=== PATIENT | female | born 2000 | race Caucasian/White ===

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

== ENCOUNTER 2022-07-12 01:41 | Observation (INO) | payer OTHER, SELFPAY ==
[2022-07-12 02:00] VITALS: BMI 26.7
--- NOTE | 2022-07-12 02:10 | OBADM ---
This patient, Bekah Robbins, admitted to the OB room OB Post 115 for observation. Patient/family oriented to hospital policies and general routines including ID bracelet, bed and alarms, visiting hours, pain management, procedures, bathroom and other care routines, personal items, smoking policy, room service/diet, and visiting hours. Patient/Family are encouraged to report perceived risks to care and to ask questions if they do not understand what they are told or what they should do.
[2022-07-12 02:14] VITALS: BP 109/63; PULSE 90
[2022-07-12 02:15] VITALS: BP 107/67; PULSE 90
[2022-07-12 02:20] VITALS: BP 109/63; PULSE 90
--- NOTE | 2022-07-25 07:55 | PM.OBTRLD ---
OB - Triage/Final Diagnosis Visit Information Comments/Additional reasons for admission: I have assessed the risk for this patient, Bekah Robbins, and determined that she would benefit from observation care. Final Diagnosis (1) Decreased movement: Code(s): O36.8190 - Decreased movements, unspecified trimester, not applicable or unspecified Status: Acute
== END 2022-07-12 02:25 | disposition home or self-care (01) ==
PROVIDERS: Admitting Provider Obstetrics & Gynecology; Visit Provider Obstetrics & Gynecology
DX: O36.8130 Decreased fetal movements, third trimester, not applicable or unspecified (principal); Z3A.34 34 weeks gestation of pregnancy
CPT/HCPCS: 59025; G0378; G0379

== ENCOUNTER 2022-07-19 02:18 | Observation (INO) | payer OTHER, SELFPAY ==
--- NOTE | 2022-07-19 02:30 | PC.NURSE ---
PT arrived to unit with c/o back pain, pressure, and leaking. When asked what she rates her pain on a scale of 1-10, PT states 12, definitely 12 PT denies any form of bleeding.
[2022-07-19 02:42] VITALS: BP 103/65; PULSE 93; RESP 20; TEMP 36.4
[2022-07-19 02:43] VITALS: BMI 27.1
[2022-07-19 03:19] LABS: Appearance Urine Cloudy (Clear); Bacteria Urine None Seen /hpf; Bilirubin Urine Negative (Negative); Blood Urine Negative (Negative); Color Urine Yellow (Yellow); Glucose Urine UA Negative (Negative); Ketones Urine Negative (Negative); Leukocyte Esterase Ur Trace LEU/UL (Negative); Nitrate Urine Negative (Negative); Non Pathogenic Casts 0-2; Protein Urine Negative (Negative); RBC Urine 0-2 /hpf (0-2); Specific Grav Ur 1.013 (1.001-1.035); Squamous Epithelial Cell Urine Occasional /hpf (Few); WBC Urine 0-5 /hpf; pH Urine 6.5 (5.0-9.0)
[2022-07-19 03:59] LABS: Add Urine Microscopic? YES
--- NOTE | 2022-07-19 04:03 | PC.NURSE ---
Missy Biswas CNM notified of PT arriving to unit with c/o back pain and pressure, stating baby is sitting really low, I can feel him below my incision. PT rates her pain a 12 on a pain scale of 1-10. PT sleeping at this time. PT reports she has not taken any medications for pain. RN, reported labs, vitals, reactive tracing, and history of HELLP syndrome with first . Orders to send urine for culture, give 1g PO Tylenol, call in an hour with update, if PT starts to feel better she can be discharged.
--- NOTE | 2022-07-19 04:07 | PC.NURSE ---
RN updated PT on plan of care per Missy Biswas CNM, PT verbalizes understanding and agrees to plan of care.
--- NOTE | 2022-07-19 04:44 | PC.NURSE ---
RN at beside, offered PT Tylenol I don't want it, I'm not hurting anymore, I'm just tired. I want to go home. RN asked if PT wanted Tylenol before she went home, PT refused.
--- NOTE | 2022-07-19 04:47 | PC.NURSE ---
Missy Biswas CNM notified of RN offering PT Tylenol, PT states I don't want it, I'm not hurting anymore, I'm just tired. I want to go home. RN updated CNM PT c/o leaking, ROM plus performed with negative results. Orders for discharge received.
--- NOTE | 2022-07-25 08:46 | P.PNOB_ITS ---
OB - Triage/Final Diagnosis Visit Information Comments/Additional reasons for admission: I have assessed the risk for this patient, Bekah Robbins, and determined that she would benefit from observation care. Evaluation Laboratory results: Laboratory Tests 07/19/22 03:04 Urine Color Yellow Urine Appearance Cloudy H Urine pH 6.5 Ur Specific [place] 1.013 Urine Protein Negative Urine Glucose (UA) Negative Urine Ketones Negative Ur Blood (Man) Negative Urine Nitrate Negative Urine Bilirubin Negative Urine Urobilinogen 1.0 Leukocyte Esterase Rfl Trace H Urine RBC 0-2 Urine WBC 0-5 Ur Squamous Epith Cells Occasional Urine Bacteria None seen Urine Casts 0-2 Final Diagnosis (1) False labor: Code(s): O47.9 - False labor, unspecified Status: Acute
== END 2022-07-19 05:08 | disposition home or self-care (01) ==
PROVIDERS: Advanced Practice Midwife; Admitting Provider Obstetrics & Gynecology; Visit Provider Obstetrics & Gynecology
DX: O47.03 False labor before 37 completed weeks of gestation, third trimester (principal); O26.893 Other specified pregnancy related conditions, third trimester; M54.9 Dorsalgia, unspecified; Z3A.35 35 weeks gestation of pregnancy
CPT/HCPCS: 81001; 84112; 87086; 87088; G0378; G0379

== ENCOUNTER 2022-07-29 00:05 | Observation (INO) | payer OTHER, SELFPAY ==
--- NOTE | 2022-07-29 00:05 | PC.NURSE ---
PT arrived to unit with c/o of DFM and vaginal bleeding. PT reports she went to the restroom and there was mucus like blood on her tissue. She then states she has been bleeding since yesterday with orange urine. PT reports no bleeding after using restroom here tonight. PT denies sexual intercourse but confirms she had a cervical exam 3 days ago.
[2022-07-29 00:27] VITALS: BP 114/63; PULSE 109; RESP 18; TEMP 36.9
[2022-07-29 00:30] VITALS: BMI 27.1
--- NOTE | 2022-07-29 00:46 | PC.NURSE ---
Dr. Nolasco notified of , 36.6 week PT arriving to unit with c/o of DFM and vaginal bleeding. PT reports she went to the restroom and there was mucus like blood on her tissue. She then states she has been bleeding since yesterday with orange urine. PT reports no bleeding after using restroom here tonight. PT denies sexual intercourse but confirms she had a cervical exam 3 days ago. PT has not been marking movement via marker but movement noted on tracing, reactive tracing noted, occasional contractions noted, PT denies feeling contractions, vitals reported. Discharge orders received.
--- NOTE | 2022-07-29 01:05 | PC.NURSE ---
Dr. Nolasco called unit and reported PT called from her room with concerns of being discharged. Orders to monitor PT over night.
--- NOTE | 2022-07-29 01:12 | PC.NURSE ---
RN called Dr. Nolasco to received orders for PT. Orders to send UA and schedule PT for ultrasound.
--- NOTE | 2022-07-29 03:02 | OBADM ---
This patient, Bekah Robbins, admitted to the OB room OB Post 111 for observation. Patient/family oriented to hospital policies and general routines including ID bracelet, bed and alarms, visiting hours, pain management, procedures, bathroom and other care routines, personal items, smoking policy, room service/diet, and visiting hours. Patient/Family are encouraged to report perceived risks to care and to ask questions if they do not understand what they are told or what they should do.
--- NOTE | 2022-08-15 13:27 | PM.OBTRLD ---
OB - Triage/Final Diagnosis Visit Information Comments/Additional reasons for admission: I have assessed the risk for this patient, Bekah Robbins, and determined that she would benefit from observation care.
--- NOTE | 2022-08-15 14:27 | PM.OBTRLD ---
OB - Triage/Final Diagnosis Visit Information Comments/Additional reasons for admission: I have assessed the risk for this patient, Bekah Robbins, and determined that she would benefit from observation care. Final Diagnosis (1) Vaginal bleeding during : Code(s): O46.90 - Antepartum hemorrhage, unspecified, unspecified trimester Status: Acute
== END 2022-07-29 02:12 | disposition home or self-care (01) ==
PROVIDERS: Admitting Provider Obstetrics & Gynecology; Visit Provider Obstetrics & Gynecology
DX: O46.93 Antepartum hemorrhage, unspecified, third trimester (principal); Z3A.36 36 weeks gestation of pregnancy
CPT/HCPCS: 59025; G0378; G0379

== ENCOUNTER 2022-08-11 20:53 | Observation (INO) | payer OTHER, SELFPAY ==
[2022-08-11] VITALS (7 sets, daily range): BP systolic 103–116; BP diastolic 61–75; PULSE 86–107
--- NOTE | 2022-08-12 12:03 | PM.OBTRLD ---
OB - Triage/Final Diagnosis Visit Information Date of evaluation: 08/11/22 Reason for evaluation: threatened labor Comments/Additional reasons for admission: I have assessed the risk for this patient, Bekah Robbins, and determined that she would benefit from observation care. Evaluation Vital signs: Vital Signs - 24 hr 08/11/22 21:12 08/11/22 21:16 08/11/22 21:31 Pulse Rate 107 H 107 H 86 Blood Pressure 116/72 106/66 107/66 08/11/22 21:46 08/11/22 22:01 08/11/22 22:16 Pulse Rate 89 90 95 Blood Pressure 111/63 103/75 103/61 08/11/22 22:31 Pulse Rate 96 Blood Pressure 105/61
== END 2022-08-11 22:53 | disposition home or self-care (01) ==
PROVIDERS: Admitting Provider Obstetrics & Gynecology; Visit Provider Obstetrics & Gynecology
DX: O47.1 False labor at or after 37 completed weeks of gestation (principal); Z3A.38 38 weeks gestation of pregnancy
CPT/HCPCS: 59025; G0378; G0379

== ENCOUNTER 2022-08-15 05:31 | Inpatient (IN) | payer OTHER, SELFPAY ==
[2022-08-15] VITALS (66 sets, daily range): BP systolic 81–110; BP diastolic 41–73; PULSE 50–99; RESP 14–18; TEMP 36.1–36.6; O2SAT 97–100; BMI 27.1
[2022-08-15 06:09] LABS: Basophils Percent Auto 0.3 % (0.2-1.2); Eosinophils Absolute Auto 0.1 K/mm3 (0-0.3); Eosinophils Percent Auto 0.7 % (0-4.4); Hematocrit 30.3 % (37.0-47.0); Hemoglobin 10.1 g/dL (12.0-15.0); Immature Granulocyte Absolute 0.33 K/mm3 (0.00-0.031); Immature Granulocyte Percent A 2.4 % (0-0.5); Lymphocytes Absolute Auto 3.61 K/mm3 (0.9-3.2); Lymphocytes Percent Auto 26.2 % (18.3-44.2); Mean Corpuscular HGB Conc 33.3 g/dl (32-36); Mean Corpuscular Hemoglobin 32.5 pg (26-34); Mean Corpuscular Volume 97.4 fl (80-100); Mean Platelet Volume 12.4 fl (7.4-10.4); Monocytes Absolute Auto 1.1 K/mm3 (0.1-0.6); Monocytes Percent Auto 8.2 % (2.6-8.5); Neutrophils Absolute Auto 8.6 K/mm3 (1.3-6.7); Neutrophils Percent Auto 62.2 % (45.5-73.1); Platelet Count Result 148 k/mm3 (150-375); Red Blood Count 3.11 M/mm3 (4.2-5.4); Red Cell Distribution Width 13.5 % (11.5-14.5); White Blood Count 13.8 K/mm3 (4.5-10.0)
--- NOTE | 2022-08-15 06:27 | LDADM ---
This patient, Bekah Robbins, was admitted to Labor/Delivery/Recovery 120 on 08/15/22 at 05:31. Plans for section, pain management and were discussed with patient. Patient/family oriented to hospital policies and general routines including ID bracelet, bed and alarms, visiting hours, pain management, procedures, bathroom and other care routines, personal items, smoking policy, room service/diet and guest tray routines, security routines, and visiting hours. Patient/Family are encouraged to report perceived risks to care and to ask questions if they do not understand what they are told or what they should do. See OBIX for further documentation.
[2022-08-15] MEDS: LACTATED RINGERS 1,000 ML 125 ML IV CONT ×2 (06:45→07:27)
--- NOTE | 2022-08-15 06:53 | WPDANESEPPF ---
Anes - Initial Pre Proc Eval Procedure: Operation Date: 08/15/22 07:30 Proposed Procedures p Section - Tiffani Garcia MD Date/Time: 08/15/22 06:53 Surgeon: Tiffani Garcia MD Pre Op Diagnosis: prior csection Patient Data Age: 22 Gender: F Height: 1.65 m Weight: 74 kg Last Vital Signs Pulse 96 08/15/22 06:01 BP 109/69 08/15/22 06:01 Pulse Ox 99 08/15/22 06:03 O2 Del Method Room Air 08/15/22 06:14 Allergies Allergy/AdvReac Type Severity Reaction Status Date / Time nitrofurantoin Allergy Unknown Rash Verified 08/15/22 06:06 CETIRIZINE HCL Allergy Unknown STOMACH Uncoded 08/12/22 13:16 PAIN Nut Tree Allergy Unknown RASH Uncoded 08/12/22 13:16 Home Medications Medication Instructions Recorded Confirmed Type aspirin 81 mg tablet 81 mg PO DAILY 07/12/22 08/15/22 History iron 2 tab-cap PO DAILY 07/12/22 08/15/22 History prenat.vits,den,[id number] 1 tablet PO DAILY 08/02/22 08/15/22 History Laboratory Tests 08/15/22 05:59 WBC 13.8 H K/mm3 (4.5-10.0) RBC 3.11 L M/mm3 (4.2-5.4) Hgb 10.1 L g/dL (12.0-15.0) Hct 30.3 L % (37.0-47.0) MCV 97.4 fl (80-100) MCH 32.5 pg (26-34) MCHC 33.3 g/dl (32-36) RDW 13.5 % (11.5-14.5) Plt Count 148 L k/mm3 (150-375) MPV 12.4 H fl (7.4-10.4) Immature Gran % (Auto) 2.4 H % (0-0.5) Neut % (Auto) 62.2 % (45.5-73.1) Lymph % (Auto) 26.2 % (18.3-44.2) [place] % (Auto) 8.2 % (2.6-8.5) Eos % (Auto) 0.7 % (0-4.4) Baso % (Auto) 0.3 % (0.2-1.2) Lymph # (Auto) 3.61 H K/mm3 (0.9-3.2) [place] # (Auto) 1.1 H K/mm3 (0.1-0.6) Eos # (Auto) 0.1 K/mm3 (0-0.3) Baso # (Auto) 0.0 K/mm3 (0.0-0.1) Abs Immat Gran (auto) 0.33 H K/mm3 (0.00-0.031) Absolute Neuts (auto) 8.6 H K/mm3 (1.3-6.7) Absolute Nucleated RBC 0.0 K/mm3 (0.0-0.012) Nucleated RBC % 0.0 % (0.0-0.2) RPR Pending Patient hx anesthesia problems: none Family hx anesthesia problems: none Results Review: All pre-operative results and documents have been reviewed as part of the pre-operative evaluation. [facility] Past Medical History Medical History Tonsillitis Surgical History Surgical History (Updated 08/15/22 @ 06:53 by Sourav Uriarte MD) History of section Family History Family History Other Diabetes mellitus Heart disease Hypertension Social History Social History Years smoked: 1 Smoking status: Former smoker Tobacco type: cigarettes Smoking end date: 07/09/22 Substance use: former Lack of Transportation: No Lack of Food: Never True Current Housing: I Have Housing Concerned About Future Housing: No Difficulty Paying Gas/Electric Bills: No Difficulty Paying for Meds: No Currently Unemployed: No Education: Trade/Vocational Certificate Difficulty w/ Childcare or Family Care: No Spiritual care concerns: No Anes - Eval Final PreProcedure Day of Procedure 08/15/22 06:53 Patient weight: overweight Heart: regular rate and rhythm Lungs: clear to auscultation Airway: Mallampati scale class II Neurological: alert and oriented Last oral intake: >/= 8 hours ASA classification: II Emergent: no Anesthetic plan: proceed Anesthesia type and monitoring: regional spinal and standard monitoring Results Review: All pre-operative results and documents have been reviewed as part of the pre-operative evaluation. Informed Consent: The patient's anesthetic plan and its attendant risks and benefits were discussed with the patient/family/POA. Questions were solicited and answers provided to the satisfaction of the patient/family/POA.
--- NOTE | 2022-08-15 07:22 | PM.IMHP ---
H&P: HPI History of Present Illness Date/Time: 08/15/22 07:22 Chief Complaint: repeat CS Narrative: Bekah is a 22yo at 39w for repeat CS. complicated by syphilis infection x2, treated most recently last monday and the monday before after RPR of 1:4 following neg RPR after her previous treatment. She also had anemia treated with IV iron. Previous pregnancies she had severe PreE, a baby with gastroschisis, and a twin in which the second twin of a cardiac anomaly. GBS neg. Review of Systems Review of Systems: All systems reviewed & are unremarkable except as noted in HPI and below PMFSH Past Medical History Medical History (Updated 08/15/22 @ 07:29 by Tiffani Garcia MD) Tonsillitis Surgical History Surgical History (Updated 08/15/22 @ 07:29 by Tiffani Garcia MD) History of section Family History Family History Other Diabetes mellitus Heart disease Hypertension Social History Social History Years smoked: 1 Smoking status: Former smoker Tobacco type: cigarettes Smoking end date: 07/09/22 Substance use: former Lack of Transportation: No Lack of Food: Never True Current Housing: I Have Housing Concerned About Future Housing: No Difficulty Paying Gas/Electric Bills: No Difficulty Paying for Meds: No Currently Unemployed: No Education: Trade/Vocational Certificate Difficulty w/ Childcare or Family Care: No Spiritual care concerns: No Meds Home Medications and Allergies Home Medications Medication Instructions Recorded Confirmed Type aspirin 81 mg tablet 81 mg PO DAILY 07/12/22 08/15/22 History iron 2 tab-cap PO DAILY 07/12/22 08/15/22 History prenat.vits,den,[id number] 1 tablet PO DAILY 08/02/22 08/15/22 History Allergies Allergy/AdvReac Type Severity Reaction Status Date / Time nitrofurantoin Allergy Unknown Rash Verified 08/15/22 06:06 CETIRIZINE HCL Allergy Unknown STOMACH Uncoded 08/12/22 13:16 PAIN Nut Tree Allergy Unknown RASH Uncoded 08/12/22 13:16 Vital Signs Vital Signs - 24 hr 08/15/22 05:49 08/15/22 05:58 08/15/22 06:01 Pulse Rate 95 96 Blood Pressure 110/69 109/69 Pulse Oximetry 100 99 Oxygen Delivery 08/15/22 06:03 08/15/22 06:14 Pulse Rate Blood Pressure Pulse Oximetry 99 Oxygen Delivery Room Air Exam Const: General: no acute distress Resp: Effort & Inspection: normal respiratory effort Auscultation: clear to auscultation bilaterally Cardio: Rate: regular rate Rhythm: regular rhythm GI: GI Palp: Yes Soft to palpation Extrem: General: normal to inspection H&P: Results Labs Labs: Short CBC 08/15/22 Range/Units 05:59 WBC 13.8 H (4.5-10.0) K/mm3 Hgb 10.1 L (12.0-15.0) g/dL Hct 30.3 L (37.0-47.0) % Plt Count 148 L (150-375) k/mm3 Assessment and Plan Assessment and plan (1) History of section: Code(s): Z98.891 - History of uterine scar from previous surgery Status: Acute (2) Syphilis affecting : Code(s): O98.119 - Syphilis complicating , unspecified trimester Status: Acute Plan consented for repeat CS, will proceed placenta for antitreponemal antibody
--- NOTE | 2022-08-15 07:31 | WPDHPUPDATE1 ---
History and Physical Update Update Date/Time: 08/15/22 07:31 History and Physical has been reviewed, including an updated exam of the patient. There are NO changes in the patient's condition. Risks, benefits, and alternatives have been discussed and questions answered. Patient agrees to proceed with procedure.
[2022-08-15] MEDS: ceFAZolin 2 GM/D5W 50 ML 2 GM/50 ML BAG IVPB (07:33)
--- NOTE | 2022-08-15 08:39 | PM.OBPRVD ---
OB - Delivery Note Procedure Delivery date: 08/15/22 Procedure: Procedures Operation Date: 08/15/22 07:30 <No data on this case meets the specified criteria> Repeat low transverse section Events: Other (maternal syphilis) Route of delivery: Specimen: Yes (placenta) Quantitative Blood Loss (ml): 375 Anesthesia type: Spinal Disposition: Floor Complications: none Narrative: Preop Dx: IUP 39w, maternal syphilis Post op Dx: same The patient was taken to the OR and received spinal anesthesia. She was placed in dorsal supine position with left lateral tilt. SCDs and silva were placed. She was prepped and draped in the normal sterile fashion. A Pfannensteil skin incision was made and carried through to the underlying layer of fascia. The fascia was incised in the midline and then extended laterally using Hernandez scissors. The muscles were in the midline and the peritoneum was entered bluntly. The peritoneal incision was extended inferiorly and superiorly with care to avoid the bladder. The bladder blade was then inserted, the vesicouterine peritoneum was grasped, incised with Metzenbaum scissors, and a bladder flap created. The bladder blade was reinserted. A low transverse uterine incision was made with a scalpel and extended bluntly. AROM was performed and fluid was noted to be clear. The head was delivered, followed by the remainder of the baby. The baby's oropharynx was suctioned. After 30 seconds, the cord was clamped and cut and the infant was handed off. Cord blood was obtained and the placenta was then removed manually. The uterus was exteriorized. A moist lap sponge was used to curette the endometrium. The uterine incision was then closed with one layer of 0-Vicryl in a running, locking fashion. Good hemostasis was noted. The posterior cul de sac was irrigated with normal saline and cleared of all clot and debris. The uterus was returned to the abdomen. Both lateral gutters were then irrigated. The rectus muscles were inspected and found to be hemostatic. The fascia was reapproximated using 0-Vicryl in running fashion. The subcutaneous tissue was irrigated with normal saline and made hemostatic with Bovie electrocautery. The skin was then closed with absorbable constanza. Steri strips and a bandage were applied. The uterus was evacuated. The patient tolerated the procedure very well. All counts were correct. She was taken to the recovery room in good condition. Baby Date of : 08/15/22 Time of : 08:00 Weeks of gestation at delivery: 39 Infant gender: Male Weight (pounds): 7 Weight (ounces): 10 presentation: vertex Placenta delivery description: Manual Removal Cord Vessel Description: 3 Vessels, Nuchal Cord and Delayed Cord Clamping score one minute: 8 score five minutes: 9
[2022-08-15] MEDS: diphenhydrAMINE HCl INJ 50 MG/ML VIAL 25 MG IV PUSH ×3 (09:42→19:12)
[2022-08-15] MEDS: KETOROLAC 30 MG/ML VIAL (*BKC) IV PUSH (12:42)
[2022-08-15] MEDS: DEXTROSE 5%/0.45% SOD CHL 1,000 ML 125 ML IV CONT (13:00)
[2022-08-15] MEDS: HYDROcodone/acetaminophen (*CRX) 5-325 MG TABLET 1 TAB PO ×3 (13:19→23:34)
[2022-08-15] MEDS: POLYSACCHARIDE IRON COMPLEX 150 MG CAPSULE PO (19:12)
[2022-08-15] MEDS: DOCUSATE SODIUM 100 MG CAPSULE PO (19:13)
[2022-08-15] MEDS: IBUPROFEN 600 MG TABLET PO (19:13)
[2022-08-15] MEDS: LORATADINE 10 MG TABLET (19:14)
[2022-08-15] MEDS: SIMETHICONE 80 MG TAB.CHEW PO (23:34)
[2022-08-16] MEDS: diphenhydrAMINE HCl INJ 50 MG/ML VIAL 25 MG IV PUSH (00:51)
[2022-08-16] MEDS: IBUPROFEN 600 MG TABLET PO ×4 (04:13→23:43)
[2022-08-16] MEDS: HYDROcodone/acetaminophen (*CRX) 5-325 MG TABLET 1 TAB PO ×2 (04:13→09:53)
[2022-08-16 04:15] VITALS: BP 89/64; PULSE 66; RESP 16; TEMP 36.1
[2022-08-16 05:06] LABS: Basophils Percent Auto 0.2 % (0.2-1.2); Eosinophils Absolute Auto 0.1 K/mm3 (0-0.3); Eosinophils Percent Auto 0.7 % (0-4.4); Hematocrit 27.9 % (37.0-47.0); Hemoglobin 9.1 g/dL (12.0-15.0); Immature Granulocyte Absolute 0.17 K/mm3 (0.00-0.031); Immature Granulocyte Percent A 1.4 % (0-0.5); Immature Platelet Fraction Pct 16.9 % (0.9-11.2); Lymphocytes Absolute Auto 2.62 K/mm3 (0.9-3.2); Lymphocytes Percent Auto 21.2 % (18.3-44.2); Mean Corpuscular HGB Conc 32.6 g/dl (32-36); Mean Corpuscular Hemoglobin 32.2 pg (26-34); Mean Corpuscular Volume 98.6 fl (80-100); Mean Platelet Volume 13.1 fl (7.4-10.4); Monocytes Absolute Auto 1.3 K/mm3 (0.1-0.6); Monocytes Percent Auto 10.3 % (2.6-8.5); Neutrophils Absolute Auto 8.2 K/mm3 (1.3-6.7); Neutrophils Percent Auto 66.2 % (45.5-73.1); Platelet Count Result 155 k/mm3 (150-375); Red Blood Count 2.83 M/mm3 (4.2-5.4); Red Cell Distribution Width 13.5 % (11.5-14.5); White Blood Count 12.3 K/mm3 (4.5-10.0)
--- NOTE | 2022-08-16 07:08 | PM.OBPNVD ---
OB - PN: Subj Subjective Date/time seen: 08/16/22 07:08 Patient comments: no complaints and pain well controlled baby status: doing well [place] feeding status: pumping and bottle feeding Narrative: POD 1 from primary CS. Doing well. Normal lochia. Eating, ambulating, silva out. OB - PN: Obj Data Labs 08/16/22 04:24 Labs: Laboratory Results - last 24 hr 08/15/22 08/16/22 05:59 04:24 WBC 12.3 H RBC 2.83 L Hgb 9.1 L Hct 27.9 L MCV 98.6 MCH 32.2 MCHC 32.6 RDW 13.5 Plt Count 155 MPV 13.1 H Immature Gran % (Auto) 1.4 H Neut % (Auto) 66.2 Lymph % (Auto) 21.2 [place] % (Auto) 10.3 H Eos % (Auto) 0.7 Baso % (Auto) 0.2 Lymph # (Auto) 2.62 [place] # (Auto) 1.3 H Eos # (Auto) 0.1 Baso # (Auto) 0.0 Abs Immat Gran (auto) 0.17 H Absolute Neuts (auto) 8.2 H Absolute Nucleated RBC 0.0 Nucleated RBC % 0.0 % Immature Plt Fraction 16.9 H RPR Cancelled Antibody Screen Negative OB - PN A/P Plan day: 1 Plan: routine care Comments: consented for circumcision, circumcision completed. Time Spent With Patient Time: Total time spent is greater than 50% in coordination of care (as documented) at patient's floor/unit and/or counseling patient: Exam Narrative: NAD abdomen soft, appropriately tender, incision CDI Extremities nontender with 1+ edema
[2022-08-16 08:35] VITALS: BP 99/60; PULSE 68; RESP 16; TEMP 36.7; O2SAT 98
[2022-08-16] MEDS: SIMETHICONE 80 MG TAB.CHEW PO ×3 (09:46→23:43)
[2022-08-16] MEDS: POLYSACCHARIDE IRON COMPLEX 150 MG CAPSULE PO ×2 (09:47→17:00)
[2022-08-16] MEDS: MULTIVIT/MIN/PREN/FOL AC/IRON TABLET 1 TAB PO (09:47)
[2022-08-16] MEDS: DOCUSATE SODIUM 100 MG CAPSULE PO ×2 (09:47→17:00)
--- NOTE | 2022-08-16 10:10 | WPDANLDPN2 ---
Anes-Prog Note L&D Date/Time: 08/16/22 10:10 Comfortable throughout: section Neuraxial method: spinal Epidural/Spinal procedure site: clean & non-tender Neuro status: Neuro function grossly intact. Cardiovascular status: normal Respiratory status: normal Airway patency: baseline Mental status: baseline Post-Op hydration status: normal Vital Signs: Last Vital Signs Temp 36.7 C 08/16/22 08:35 Pulse 68 08/16/22 08:35 Resp 16 08/16/22 08:35 BP 99/60 L 08/16/22 08:35 Pulse Ox 98 08/16/22 08:35 O2 Del Method Room Air 08/15/22 11:15 Pain score (VAS): 04/05 I/O: Intake & Output 08/15/22 08/16/22 08/16/22 23:59 07:59 15:59 Intake Total 2220 600 Output Total 2300 300 Balance -80 300 Post-procedural complaints: pruritis moderate, treatment effective Patient feedback: Patient satisfied with anesthetic care.
--- NOTE | 2022-08-16 10:11 | WPDANLDNPN2 ---
Anes-Prog Note L&D-Neuraxial Date/Time: 08/16/22 10:11 Neuraxial medications: intrathecal PF morphine Opiod-related complaints: pruritis Patient feedback: Patient satisfied with post-operative pain management.
[2022-08-16] MEDS: HYDROcodone/acetaminophen (*CRX) 10-325 MG TABLET 1 TAB PO ×2 (17:00→23:46)
--- NOTE | 2022-08-16 18:33 | PC.NURSE ---
Dr. Dixon ([facility] Corporate Legal Assistant) requests RPR titer on mother after delivery.
--- NOTE | 2022-08-16 19:10 | PC.NURSE ---
Patient left on 3 hour pass to [facility]. Support person Michaelchidi will drive her over. Patient aware that she should not take any medications while gone on pass. Recommended patient use a wheelchair to get to NICU.
--- NOTE | 2022-08-16 23:30 | PC.NURSE ---
Patient returned from [facility] to [facility] to see infant. Vitals WNL, pain meds given.
[2022-08-16 23:40] VITALS: BP 110/74; PULSE 76; RESP 16; TEMP 36.6
--- NOTE | 2022-08-17 06:56 | P.PNOB_ITS ---
Pain Control Date/time seen: 08/17/22 06:56 DELETE
--- NOTE | 2022-08-17 06:56 | PM.OBPNLAB ---
Pain Control Date/time seen: 08/17/22 06:56 DELETE
--- NOTE | 2022-08-17 06:56 | PM.OBPNVD ---
OB - PN: Subj Subjective Date/time seen: 08/17/22 06:56post section day 2 doing well, regular diet, flatus present pain managed would like to be d/c baby transferred OB - PN: Obj Data Labs 08/16/22 04:24 OB - PN A/P Plan day: 2 Plan: routine care and discharge home Time Spent With Patient Time: Total time spent is greater than 50% in coordination of care (as documented) at patient's floor/unit and/or counseling patient: Review of Systems Review of Systems: All systems reviewed & are unremarkable except as noted in HPI and below Exam Narrative: Incision CDI Const: General: cooperative and healthy appearing Resp: Effort & Inspection: normal respiratory effort Cardio: Rate: regular rate Skin: General skin exam: normal color Psych: Appearance: grossly normal
--- NOTE | 2022-08-17 06:59 | P.DS_ITS ---
DS: Admitting Diagnosis Discharge Date 08/17/22 Admitting Diagnosis rpt DS: Discharge Diagnosis Discharge Diagnosis (1) History of section: Code(s): Z98.891 - History of uterine scar from previous surgery Status: Acute OB - DS: Summary OB Procedures : None OB Procedures Intrapartum: OB Procedures: : None Peripartum Data Procedures: Procedures Operation Date: 08/15/22 07:30 Actual Procedure Side Surgeon p Section Not Applicable Tiffani Garcia MD Time Spent with Patient Time attestation: Total time spent providing and/or coordinating discharge services: DS: Data Data Completed and Pending Pending studies at discharge: Pending at discharge 08/15/22 08:02 Surgical [PTH] Routine Labs on day of discharge: Labs from last 24 hours 08/17/22 02:18 RPR Pending Discharge Plan Discharge Attending physician on discharge: Tiffani Garcia Discharging Clinician: Margaret Butcher Patient Disposition: Home, Self-Care Activity: pelvic rest Diet: regular Patient Instructions: Antibiotic Form Stand Alone Forms: General Discharge Information Follow-up/Referrals: Tiffani Garcia MD [Physician] - 1 Week Discharge Medications: New hydrocodone-acetaminophen 5-325 mg Tablet 1 tablet PO Q3H PRN (Reason: Moderate Pain (4-6)) Qty: 30 0RF Continued prenat.vits,den,[id number]-rrpi-[id number] Tablet 1 tablet PO DAILY iron 2 tab-cap PO DAILY Discontinued aspirin 81 mg Tablet 81 mg PO DAILY Date of admission: 08/15/22 05:31 Primary Care Provider: PHYSICIAN,SURVEYOR GEOPHYSICAL PROSPECTING Admitting Provider: Tiffani Garcia Attending physician on admission: Tiffani Garcia Condition: Stable
[2022-08-17] MEDS: DOCUSATE SODIUM 100 MG CAPSULE PO (07:08)
[2022-08-17] MEDS: HYDROcodone/acetaminophen (*CRX) 10-325 MG TABLET 1 TAB PO (07:08)
[2022-08-17] MEDS: IBUPROFEN 600 MG TABLET PO (07:08)
[2022-08-17] MEDS: SIMETHICONE 80 MG TAB.CHEW PO (07:08)
[2022-08-17] MEDS: POLYSACCHARIDE IRON COMPLEX 150 MG CAPSULE PO (07:09)
[2022-08-17 07:25] VITALS: BP 121/76; PULSE 83; RESP 18; TEMP 36.6; O2SAT 100
[2022-08-17 08:03] LABS: Rapid Plasma Reagin Reactive (NonReactive)
[2022-08-19 19:18] LABS: Treponema pallidum Ab FTA ABS Reactive (Nonreactive)
== END 2022-08-17 07:52 | disposition home or self-care (01) | DRG 540 ==
LOC: ANHLDR 05:34 → ANHOB2 11:11
PROVIDERS: Admitting Provider Obstetrics & Gynecology; Visit Provider Obstetrics & Gynecology
PROC: 10D00Z1 Extraction of Products of Conception, Low, Open Approach (ICD-10-PCS; CPT 59514; principal; 2022-08-15 07:30)
DX: O98.12 Syphilis complicating childbirth (principal); D64.9 Anemia, unspecified; Z37.0 Single live birth; Z3A.39 39 weeks gestation of pregnancy; O99.02 Anemia complicating childbirth; O34.211 Maternal care for low transverse scar from previous cesarean delivery; O69.81X0 Labor and delivery complicated by cord around neck, without compression, not applicable or unspecified
CPT/HCPCS: 36415; 85025; 85055; 86592; 86780; 86850; 86900; 86901; 88307; 96365; 96375; A9270; J0131; J0690; J1200; J1756; J1885; J2274; J2370; J2590; J7120

== ENCOUNTER 2022-09-10 19:42 | Emergency (ER) | payer OTHER, SELFPAY ==
[2022-09-10 19:44] VITALS: BP 107/69; PULSE 82; RESP 17; TEMP 36.4; O2SAT 98
--- NOTE | 2022-09-10 20:58 | ED.URI ---
HPI - URI/Sore Throat General Chief Complaint: Upper Respiratory Infection Stated Complaint: cold s/s Time Seen by Provider: 09/10/22 19:49 Source: patient and RN notes reviewed Mode of arrival: ambulatory Limitations: no limitations History of Present Illness HPI Narrative: This is a 22 year old female who presents for evaluation of URI symptoms . She reports runny nose, congestion and sore throat 4 days ago. She also reports nonproductive cough. She denies fever, chills, nausea, vomiting, chest pain or shortness of breath. SHe has taken at home COVID test which were negative. She also reports having a 3-4 weeks ago. She has noticed some black santana to her incision and she is not sure if it is normal. She is also having pain. She denies drainage. She has appointment is September 12 Related Data Home Medications Medication Instructions Recorded Confirmed iron 2 tab-cap PO DAILY 07/12/22 08/15/22 prenat.vits,den,sdj-crdk-okhlh 1 tablet PO DAILY 08/02/22 08/15/22 Allergies Allergy/AdvReac Type Severity Reaction Status Date / Time cetirizine Allergy Unknown stomach Verified 08/15/22 08:02 pain nitrofurantoin Allergy Unknown Rash Verified 08/15/22 06:06 Nut Tree Allergy Unknown RASH Uncoded 08/12/22 13:16 Review of Systems Constitutional: Constitutional: Denies weakness ENT: Reports nasal congestion and Reports sore throat Cardiovascular: Cardiovascular: Denies syncope, Denies rapid heart rate, Denies irregular heart rhythm, Denies leg edema and Denies dyspnea Respiratory: Respiratory: Denies chest congestion, Reports cough, Denies hemoptysis, Denies excessive phlegm production and Denies dyspnea Gastrointestinal: Gastrointestinal: Denies abdominal pain, Denies hematochezia, Denies diarrhea and Denies vomiting Genitourinary: Genitourinary: Denies hematuria and Denies dysuria Musculoskeletal: Musculoskeletal: Denies joint swelling, Denies loss of height and Denies muscle weakness Neurologic: Denies syncope, Denies focal weakness and Denies weakness PMFSH Past Medical History Medical History Tonsillitis Surgical History Surgical History (Updated 08/15/22 @ 07:29 by Tiffani Garcia MD) History of section Family History Family History Other Diabetes mellitus Heart disease Hypertension Social History Social History Years smoked: 1 Smoking status: Former smoker Tobacco type: cigarettes Smoking end date: 07/09/22 Substance use: former Lack of Transportation: No Lack of Food: Never True Current Housing: I Have Housing Concerned About Future Housing: No Difficulty Paying Gas/Electric Bills: No Difficulty Paying for Meds: No Currently Unemployed: No Education: Trade/Vocational Certificate Difficulty w/ Childcare or Family Care: No Spiritual care concerns: No Exam Const: General: no acute distress and alert Nutritional Appearance: well nourished Orientation/consciousness: patient oriented x3 Limitations: no limitations HENMT: Head: normal to inspection Ears: external ears normal and TM's normal bilaterally Face/Nose/Sinus: Normal external nose present Face and sinus: normal facial exam and sinuses nontender Mouth: Yes Normal oral and palatal mucosa present, Yes lip normal and Yes moist mucous membranes Teeth and gingiva: dentition normal Throat: posterior oropharynx normal Eyes: EOM: EOMs intact bilaterally Neck: Neck: normal visual inspection Chest: Chest palpation & inspection: normal inspection of the chest Resp: Effort & Inspection: normal respiratory effort Auscultation: clear to auscultation bilaterally Cardio: Rate: regular rate Rhythm: regular rhythm Heart sounds: no murmurs Skin: General skin exam: normal color Rashes: no rashes Wounds: no wounds Other:
[2022-09-10 21:00] LABS: Influenza A QL RT-PCR Negative (Negative); Influenza B QL RT-PCR Negative (Negative); RSV RNA, RT-PCR Negative (Negative); SARS-CoV-2 RNA PCR Negative (Negative)
== END 2022-09-10 21:18 | disposition home or self-care (01) ==
PROVIDERS: Emergency Provider General Practice
DX: O99.53 Diseases of the respiratory system complicating the puerperium (principal); J06.9 Acute upper respiratory infection, unspecified; Z48.01 Encounter for change or removal of surgical wound dressing; Z20.822 Contact with and (suspected) exposure to COVID-19; Z87.891 Personal history of nicotine dependence
CPT/HCPCS: 87637; 99283

== ENCOUNTER 2023-07-08 15:40 | Emergency (ER) | payer OTHER, SELFPAY ==
[2023-07-08 15:56] VITALS: BP 106/68; PULSE 69; RESP 16; TEMP 36.9; O2SAT 100
--- NOTE | 2023-07-08 16:31 | ED.DIZZY ---
HPI - Dizziness General Chief Complaint: Nausea/Vomiting/Diarrhea Stated Complaint: Dizziness Time Seen by Provider: 07/08/23 16:10 Source: patient, RN notes reviewed and old records reviewed Mode of arrival: ambulatory Limitations: no limitations History of Present Illness HPI Narrative: 23 year old female presents here with complaints of feeling dizzy and nauseated with decreased appetite for the past month to month and a half. Patient reports that she has some dizziness today and nausea and vomiting. has noted episodes are most in the evening. Patient is unsure of last menses date. Patient denies any URI symptoms or any known fevers, chills or sweats or body aches. MD elicited complaint: dizziness and other (nausea and some vomiting) Onset (ago): month(s) (1 to 1.5 months) Related Data Allergies Allergy/AdvReac Type Severity Reaction Status Date / Time cetirizine Allergy Unknown stomach Verified 07/08/23 16:20 pain nitrofurantoin Allergy Unknown Rash Verified 07/08/23 16:20 Nut Tree Allergy Unknown RASH Uncoded 07/08/23 16:20 Review of Systems Review of Systems: CONSTITUTIONAL: Denies fever, chills, or sweats. EYES: Denies visual changes, redness, or discharge. ENT: Denies rhinorrhea, congestion, sore throat, or otalgia. CARDIOVASCULAR: Denies chest pain, palpitations, or edema. RESPIRATORY: Denies cough or dyspnea. GASTROINTESTINAL: Denies abdominal pain,positive for some nausea, vomiting, no diarrhea. GENITOURINARY: Denies dysuria or hematuria. SKIN: Denies rash or itching. MUSCULOSKELETAL: Denies back pain, joint pain, or myalgia. NEUROLOGIC: Denies headache, numbness, or weakness, reports some dizziness. PSYCHIATRIC: Denies anxiety or depression. All systems reviewed & are unremarkable except as noted in HPI and below PMFSH Past Medical History Medical History HELLP syndrome Pre-diabetes Pre-eclampsia Tonsillitis Surgical History Surgical History History of section x3 Family History Family History Other Diabetes mellitus Heart disease Hypertension Social History Social History Years smoked: 1 Smoking status: Current every day smoker Tobacco type: cigarettes and e-cigarettes/vaping Alcohol intake: current Alcohol use details: social Substance use: former Lack of Transportation: No Lack of Food: Never True Current Housing: I Have Housing Concerned About Future Housing: No Difficulty Paying Gas/Electric Bills: No Difficulty Paying for Meds: No Currently Unemployed: No Education: Trade/Vocational Certificate Difficulty w/ Childcare or Family Care: No Living arrangements: with family Gender identity (if verbalized by the patient): Female Spiritual care concerns: No Comments At time of signature, agree with nursing past medical, surgical, social and family history. There is no relevant family history pertinent to the presenting complaint Exam Narrative: GENERAL: Well-appearing, well-nourished, and in no acute distress. HEAD: Normocephalic, atraumatic. EYES: PERRLA and EOMI. ENT: Nares clear, no rhinorrhea or epistaxis. Mucous membranes moist.TM's normal throat pink with no redness or swelling NECK: Supple. no lymphadenopathy CHEST: Clear to auscultation. No respiratory distress.SAO2 100% on room air HEART: Regular rate and rhythm. No murmur heard. Normal peripheral pulses. ABDOMEN: Soft, nontender, nondistended, normal active bowel sounds.denies any vaginal bleeding or discharge, nausea and vomiting no diarrhea EXTREMITIES: Normal range of motion. No edema. SKIN: Warm, dry, no rash. NEURO: No focal deficits. Alert and oriented x3.episodes of dizziness reported Course Course Emergency Course: Patient is aware of diagnosi
== END 2023-07-08 16:50 | disposition home or self-care (01) ==
PROVIDERS: Emergency Provider Registered Nurse
DX: O99.891 Other specified diseases and conditions complicating pregnancy (principal); Z3A.00 Weeks of gestation of pregnancy not specified; R11.0 Nausea; R42 Dizziness and giddiness; O99.330 Smoking (tobacco) complicating pregnancy, unspecified trimester; F17.210 Nicotine dependence, cigarettes, uncomplicated; F17.290 Nicotine dependence, other tobacco product, uncomplicated
CPT/HCPCS: 99213; G0463

== ENCOUNTER 2024-01-17 11:31 | Outpatient (CLI) | payer OTHER, SELFPAY ==
[2024-01-17 12:08] VITALS: BP 115/72; PULSE 107
== END 2024-02-21 17:52 | disposition home or self-care (01) ==
LOC: ANHLDR 01-31 07:12 → ANHOBOP 03-01 10:10
PROVIDERS: Visit Provider Obstetrics & Gynecology Gynecology
DX: O36.8130 Decreased fetal movements, third trimester, not applicable or unspecified (principal); Z3A.37 37 weeks gestation of pregnancy
CPT/HCPCS: 59025

== ENCOUNTER 2024-02-11 17:42 | Observation (INO) | payer OTHER, SELFPAY ==
[2024-02-11 18:05] VITALS: BMI 24.1
[2024-02-11 18:15] VITALS: BP 111/78; PULSE 102
--- NOTE | 2024-02-11 19:09 | OBADM ---
This patient, Bekah Robbins, admitted to the OB room Labor/Delivery/Recovery 105 for observation. Patient/family oriented to hospital policies and general routines including ID bracelet, bed and alarms, visiting hours, pain management, procedures, bathroom and other care routines, personal items, smoking policy, room service/diet, and visiting hours. Patient/Family are encouraged to report perceived risks to care and to ask questions if they do not understand what they are told or what they should do.
--- NOTE | 2024-02-13 11:42 | PM.OBTRLD ---
OB - Triage/Final Diagnosis Visit Information Comments/Additional reasons for admission: I have assessed the risk for this patient, Bekah Robbins, and determined that she would benefit from observation care. Final Diagnosis (1) Left against medical advice: Code(s): Z53.29 - Procedure and treatment not carried out because of patient's decision for other reasons Status: Acute
== END 2024-02-11 18:45 | disposition left against medical advice (07) ==
PROVIDERS: Admitting Provider Obstetrics & Gynecology; Visit Provider Obstetrics & Gynecology
DX: O47.1 False labor at or after 37 completed weeks of gestation (principal); Z3A.37 37 weeks gestation of pregnancy

== ENCOUNTER 2024-02-12 06:14 | Inpatient (IN) | payer OTHER, SELFPAY ==
[2024-02-12] VITALS (99 sets, daily range): BP systolic 80–138; BP diastolic 38–108; PULSE 29–129; RESP 16–18; TEMP 36.3–37.1; O2SAT 87–100; BMI 25.9
[2024-02-12] MEDS: LACTATED RINGERS 1,000 ML 125 ML IV CONT ×2 (07:00→08:33)
[2024-02-12] MEDS: fentaNYL CITRATE INJ (*CRX) 100 MCG/2 ML VIAL IV PUSH ×2 (07:13→08:31)
[2024-02-12 07:23] LABS: Basophils Percent Auto 0.3 % (0.2-1.2); Hematocrit 27.6 % (37.0-47.0); Hemoglobin 9.2 g/dL (12.0-15.0); Immature Granulocyte Absolute 0.05 K/mm3 (0.00-0.031); Immature Granulocyte Percent A 0.4 % (0-0.5); Immature Platelet Fraction Pct 17.9 % (0.9-11.2); Lymphocytes Absolute Auto 1.64 K/mm3 (0.9-3.2); Lymphocytes Percent Auto 14.7 % (18.3-44.2); Mean Corpuscular HGB Conc 33.3 g/dl (32-36); Mean Corpuscular Hemoglobin 30.8 pg (26-34); Mean Corpuscular Volume 92.3 fl (80-100); Mean Platelet Volume 13.1 fl (7.4-10.4); Monocytes Absolute Auto 0.6 K/mm3 (0.1-0.6); Monocytes Percent Auto 5.1 % (2.6-8.5); Neutrophils Absolute Auto 8.9 K/mm3 (1.3-6.7); Neutrophils Percent Auto 79.5 % (45.5-73.1); Platelet Count Result 151 k/mm3 (150-375); Red Blood Count 2.99 M/mm3 (4.2-5.4); White Blood Count 11.1 K/mm3 (4.5-10.0)
[2024-02-12] MEDS: ACETAMINOPHEN 500 MG TABLET 1000 MG PO (07:32)
--- NOTE | 2024-02-12 07:35 | LDADM ---
This patient, Bekah Robbins, was admitted to Labor/Delivery/Recovery 119 on 02/12/24 at 06:14. Plans for labor, pain management and were discussed with patient. Patient/family oriented to hospital policies and general routines including ID bracelet, bed and alarms, visiting hours, pain management, procedures, bathroom and other care routines, personal items, smoking policy, room service/diet and guest tray routines, infant security routines, and visiting hours. Patient/Family are encouraged to report perceived risks to care and to ask questions if they do not understand what they are told or what they should do. See OBIX for further documentation.
--- NOTE | 2024-02-12 08:25 | WPDANESEPPF ---
Anes - Initial Pre Proc Eval Date/Time: 02/12/24 08:25 Surgeon: Darien Aaron MD Pre Op Diagnosis: contractions Patient Data Age: 23 Gender: F Height: 1.68 m Weight: 73 kg Last Vital Signs Pulse 57 L 02/12/24 07:45 BP 124/95 H 02/12/24 08:01 O2 Del Method Room Air 02/12/24 07:34 Allergies Allergy/AdvReac Type Severity Reaction Status Date / Time cetirizine Allergy Unknown stomach Verified 07/08/23 16:20 pain nitrofurantoin Allergy Unknown Rash Verified 07/08/23 16:20 Nut Tree Allergy Unknown RASH Uncoded 07/08/23 16:20 Home Medications Medication Instructions Recorded Confirmed Type ondansetron 4 mg disintegrating 4 mg PO Q6H PRN nausea and 07/08/23 Rx tablet vomiting #14 tabs Laboratory Tests 02/12/24 07:15 WBC 11.1 H K/mm3 (4.5-10.0) RBC 2.99 L M/mm3 (4.2-5.4) Hgb 9.2 L g/dL (12.0-15.0) Hct 27.6 L % (37.0-47.0) MCV 92.3 fl (80-100) MCH 30.8 pg (26-34) MCHC 33.3 g/dl (32-36) RDW 13.0 % (11.5-14.5) Plt Count 151 k/mm3 (150-375) MPV 13.1 H fl (7.4-10.4) Immature Gran % (Auto) 0.4 % (0-0.5) Neut % (Auto) 79.5 H % (45.5-73.1) Lymph % (Auto) 14.7 L % (18.3-44.2) [place] % (Auto) 5.1 % (2.6-8.5) Eos % (Auto) 0.0 % (0-4.4) Baso % (Auto) 0.3 % (0.2-1.2) Lymph # (Auto) 1.64 K/mm3 (0.9-3.2) [place] # (Auto) 0.6 K/mm3 (0.1-0.6) Eos # (Auto) 0.0 K/mm3 (0-0.3) Baso # (Auto) 0.0 K/mm3 (0.0-0.1) Abs Immat Gran (auto) 0.05 H K/mm3 (0.00-0.031) Absolute Neuts (auto) 8.9 H K/mm3 (1.3-6.7) Absolute Nucleated RBC 0.000 K/mm3 (0.0-0.012) Nucleated RBC % 0.0 % (0.0-0.2) % Immature Plt Fraction 17.9 H % (0.9-11.2) RPR Pending HIV 1&2 Ab/P24 Ag 4thGn Pending Blood Type O Positive Antibody Screen Pending Patient hx anesthesia problems: none Family hx anesthesia problems: none Results Review: All pre-operative results and documents have been reviewed as part of the pre-operative evaluation. FOR[facility]LY [facility], [facility] Past Medical History Medical History HELLP syndrome Pre-diabetes Pre-eclampsia Tonsillitis Surgical History Surgical History History of section x3 Family History Family History Other Diabetes mellitus Heart disease Hypertension Social History Social History Years smoked: 1 Smoking status: Never smoker Tobacco type: cigarettes and e-cigarettes/vaping Second hand tobacco smoke exposure: No Alcohol intake: current Alcohol use details: social Substance use: current Do You Feel Safe in your Home?: Yes Lack of Transportation: YES Lack of Food: Never True Current Housing: I Have Housing Concerned About Future Housing: No Difficulty Paying Gas/Electric Bills: No Difficulty Paying for Meds: No Currently Unemployed: No Education: High School Diploma/GED Difficulty w/ Childcare or Family Care: No Living arrangements: with family Gender identity (if verbalized by the patient): Female Spiritual care concerns: No Anes - Eval Final PreProcedure Day of Procedure 02/12/24 08:25 Patient weight: normal Heart: regular rate and rhythm Lungs: clear to auscultation Airway: Mallampati scale class II Neurological: alert and oriented Last oral intake: >/= 8 hours ASA classification: II Emergent: no Anesthetic plan: proceed Anesthesia type and monitoring: regional spinal and standard monitoring Results Review: All pre-operative results and documents have been reviewed as part of the pre-operative evaluation. Informed Consent: The patient's anesthetic plan and its attendant risks and benefits were discussed with the patient/family/POA. Questions were solicited and answers provided to the satisfaction of the patient/family/POA.
[2024-02-12 08:30] LABS: HIV 1/2 Ab P24 Ag Result Negative (Negative)
--- NOTE | 2024-02-12 09:00 | P.HP_ITS ---
H&P: HPI History of Present Illness Date/Time: 02/12/24 09:00 Chief Complaint: Contractions Narrative: 23 y/o at 37 47 weeks by EDC 02/29/24. She ays she is seen by a Dr. Serrato in [place], and was expected to deliver at a different hospital. She presented last night as a walk-in patient here for contractions. While ruling her out for labor, she decided to sign out AMA. [facility] apparently [facility], was triaged and sent home. She is now back, complaining again of contractions. Cervix has changed from 1 to 3 cm. Labor has been diagnosed, so we have admitted her for labor. She has 3 prior cesareans. records are incomplete, but it looks like she had late care. Dating seems to be by ultrasound not consistent with LMP. 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 No traditional GCT on the record, but it appears a hgb a1c was normal. No GBS test on record. Apparently one of her deliveries was a twin gestation, delivered at 32 weeks, and one baby due to complications of gastroschesis. Review of Systems Review of Systems: All systems reviewed & are unremarkable except as noted in HPI and below PMFSH Past Medical History Medical History HELLP syndrome Pre-diabetes Pre-eclampsia Tonsillitis Surgical History Surgical History History of section x3 Family History Family History Other Diabetes mellitus Heart disease Hypertension Social History Social History Years smoked: 1 Smoking status: Never smoker Tobacco type: cigarettes and e-cigarettes/vaping Second hand tobacco smoke exposure: No Alcohol intake: current Alcohol use details: social Substance use: current Do You Feel Safe in your Home?: Yes Lack of Transportation: YES Lack of Food: Never True Current Housing: I Have Housing Concerned About Future Housing: No Difficulty Paying Gas/Electric Bills: No Difficulty Paying for Meds: No Currently Unemployed: No Education: High School Diploma/GED Difficulty w/ Childcare or Family Care: No Living arrangements: with family Gender identity (if verbalized by the patient): Female Spiritual care concerns: No Meds Home Medications and Allergies Home Medications Medication Instructions Recorded Confirmed Type ondansetron 4 mg disintegrating 4 mg PO Q6H PRN nausea and 07/08/23 Rx tablet vomiting #14 tabs Allergies Allergy/AdvReac Type Severity Reaction Status Date / Time cetirizine Allergy Unknown stomach Verified 07/08/23 16:20 pain nitrofurantoin Allergy Unknown Rash Verified 07/08/23 16:20 Nut Tree Allergy Unknown RASH Uncoded 07/08/23 16:20 Vital Signs Vital Signs - 24 hr 02/12/24 07:03 02/12/24 07:16 02/12/24 07:30 Pulse Rate 70 72 76 Blood Pressure 114/58 L 100/63 112/80 Oxygen Delivery 02/12/24 07:45 02/12/24 08:01 02/12/24 07:34 Pulse Rate 57 L Blood Pressure 116/84 124/95 H Oxygen Delivery Room Air Exam Const: Orientation/consciousness: patient oriented x3 Other: Well-developed, well-nourished female in no acute distress. Neck: Thyroid: thyroid normal Lymphatic: no lymphadenopathy noted (in neck, axilla or inguinal nodes) Resp: Effort & Inspection: normal respiratory effort Auscultation: clear to auscultation bilaterally Cardio: Rate: regular rate Rhythm: regular rhythm Heart sounds: S1 normal heart sound present and S2 normal heart sound present GI: Other: ABD: Soft, nontender, nondistended, gravid. NST reactive. TOCO: contractions every 3-4 min. No guarding or rebound tenderness. No hepatosplenomegaly. : General: Yes no CVA tenderness Other: Cervix 3/90/BBOW per RN Back/Spine/Pelvis: Back: no CVA tenderness Skin: General skin exam: normal color and no rashes or lesions noted Neuro: General: patient oriented x3 Extrem: Other: Extremities: nontender with no edema Psych: Mental Status: mental status grossly normal Affect: normal affect H&P: Results Labs Labs: Short CBC 02/12/24 Range/Units 07:15 WBC 11.1 H (4.5-10.0) K/mm3 Hgb 9.2 L (12.0-15.0) g/dL Hct 27.6 L (37.0-47.0) % Plt Count 151 (150-375) k/mm3 Assessment and Plan Assessment and plan (1) Term : Code(s): Z34.90 - Encounter for supervision of normal , unspecified, unspecified trimester Status: Acute Assessment and Plan: A: IUP at 37 4/7 weeks with labor, prior , poor care, and positive VDRL. P: Offered repeat . RPR pending. She understands risks of surgery to include risks of anesthesia, risks of pain, infection, bleeding, blood products, thromboembolic phenomena and damage to adjacent structures such as bowel, bladder, ureters, blood vessels and nerves. She understands all these risks and elects to proceed with surgery. 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
--- NOTE | 2024-02-12 09:08 | WPDHPUPDATE1 ---
History and Physical Update Update Date/Time: 02/12/24 09:08 History and Physical has been reviewed, including an updated exam of the patient. There are NO changes in the patient's condition. Risks, benefits, and alternatives have been discussed and questions answered. Patient agrees to proceed with procedure.
[2024-02-12 10:06] LABS: Rapid Plasma Reagin Non-Reactive (NonReactive)
[2024-02-12 10:53] LABS: Amphetamine Screen Urine Negative (Negative); Barbiturate Screen Urine Negative (Negative); Benzodiazepines Screen Urine Negative (Negative); Cannabinoid Screen Urine Negative (Negative); Cocaine Screen Urine Positive (Negative); Methadone Screen Urine Negative (Negative); Opiate Screen Urine Negative (Negative); Phencyclidine Screen Urine Negative (Negative)
[2024-02-12] MEDS: FAMOTIDINE 20 MG/2 ML VIAL IV PUSH (11:11)
[2024-02-12] MEDS: ONDANSETRON INJ 4 MG/2 ML VIAL IV PUSH (11:12)
[2024-02-12] MEDS: ceFAZolin 2 GM/D5W 50 ML 2 GM/50 ML BAG IVPB (11:14)
--- NOTE | 2024-02-12 12:10 | W.PM.OBCSD ---
OB - Delivery Note Procedure Delivery date: 02/12/24 Pre-op diagnosis: Previous Delivery (IUP at 37 4/7, labor, prior ) Post-op Diagnosis: Same Induction method: None Delivery monitor: External FHT and External Uterine Procedure Performed: Repeat Surgeon: Darien Aaron MD Anesthesia type: Epidural Description of Procedure/Findings: Findings: Thin lower uterine segment. Normal-appearing uterus, tubes and ovaries. Techniques: The patient was taken to the operating room where she was prepared and draped in the usual sterile fashion in dorsal supine position with a leftward tilt. She received cefazolin preoperatively. Spinal anesthesia was found to be adequate. A Pfannenstiel skin incision was made along the previous scar line and was carried through to the underlying layer of the fascia. The fascia was incised in the midline and the incision was extended laterally. The fascia was dissected free of the underlying rectus muscles. The rectus muscles were in the midline. The peritoneum was identified, tented up and entered sharply. The peritoneal incision was extended superiorly and inferiorly with good visualization of the bladder. The bladder blade was placed. The vesicouterine peritoneum was identified, tented up and entered sharply. The incision was extended laterally and the bladder flap was developed. The bladder blade was replaced. The uterus was then incised sharply in a transverse fashion along the lower uterine segment. The incision was extended laterally. The 's head was delivered atraumatically to the sterile field, followed by the body. The nose and mouth were bulb suctioned. After a delay, the cord was clamped and cut. The was handed off the field. Cord blood was collected. The placenta was removed manually and was passed off the field. The uterus was exteriorized and cleared of all clots and debris. The uterine incision was reapproximated using 0 Monocryl in a running, locked fashion. Excellent hemostasis resulted as did excellent reapproximation of the normal anatomy. The uterus was returned the abdomen. The pelvis was irrigated copiously with warmed normal saline. Rigorous hemostasis was assured. The fascial layer was reapproximated using 0 Vicryl in a running fashion. The skin was closed with a running, subcuticular stitch of 4 0 Vicryl. Dermaflex was applied externally. Sponge, lap, needle and instrument counts were correct. The patient was taken to the recovery room in stable condition. The infant went to the nursery in stable condition. I was present and scrubbed the entire procedure. Specimen: Yes (cord blood, placenta) Estimated Blood Loss: 310 Drains: Yes (silva) Packing: No Pathology: Yes (placenta) Complications: None Condition: Stable Disposition: PACU Baby Date of : 02/12/24 Time of : 11:38 Gestational Age by Date: 37 Infant gender: Female Weight (pounds): 7 Weight (ounces): 2 presentation: vertex Placenta delivery description: Manual Removal and Normal Configuration Cord Vessel Description: 3 Vessels and Delayed Cord Clamping score one minute: 8 score five minutes: 9
--- NOTE | 2024-02-12 12:12 | P.DS_ITS ---
DS: Admitting Diagnosis Discharge Date 02/14/24 Admitting Diagnosis IUP at 37 4/7 weeks Labor Prior Poor care DS: Discharge Diagnosis Discharge Diagnosis (1) delivery delivered: Code(s): O82 - Encounter for delivery without indication Status: Acute (2) Cocaine abuse complicating : Code(s): O99.320 - Drug use complicating , unspecified trimester; F14.10 - Cocaine abuse, uncomplicated Status: Acute OB - DS: Summary OB Procedures : NST OB Procedures Intrapartum: OB Procedures: : None Peripartum Data Procedures: Procedures Operation Date: 02/12/24 10:30 Actual Procedure Side Surgeon p Section Bilateral Darien Aaron MD Time Spent with Patient Time attestation: Total time spent providing and/or coordinating discharge services: DS: Data Data Completed and Pending Pending studies at discharge: Pending at discharge 02/12/24 11:59 Surgical [PTH] Routine Labs on day of discharge: Labs from last 24 hours 02/12/24 02/12/24 09:17 07:15 WBC 11.1 H RBC 2.99 L Hgb 9.2 L Hct 27.6 L MCV 92.3 MCH 30.8 MCHC 33.3 RDW 13.0 Plt Count 151 MPV 13.1 H Immature Gran % (Auto) 0.4 Neut % (Auto) 79.5 H Lymph % (Auto) 14.7 L [place] % (Auto) 5.1 Eos % (Auto) 0.0 Baso % (Auto) 0.3 Lymph # (Auto) 1.64 [place] # (Auto) 0.6 Eos # (Auto) 0.0 Baso # (Auto) 0.0 Abs Immat Gran (auto) 0.05 H Absolute Neuts (auto) 8.9 H Absolute Nucleated RBC 0.000 Nucleated RBC % 0.0 % Immature Plt Fraction 17.9 H Urine Opiates Screen Negative Urine Methadone Screen Negative Ur Barbiturates Screen Negative Ur Phencyclidine Scrn Negative Ur Amphetamine Screen Negative U Benzodiazepines Scrn Negative Urine Cocaine Screen Positive A U Cannabinoids Screen Negative RPR Non-reactive Hep Bs Antigen Pending HIV 1&2 Ab/P24 Ag 4thGn Negative Rubella IgG Antibody Pending Blood Type O Positive Antibody Screen Negative Discharge Plan Discharge Attending physician on discharge: Darien Aaron Discharging Clinician: Darien Aaron Patient Disposition: Home, Self-Care Activity: may shower, may drive after 2 weeks and pelvic rest Diet: regular Wound Care Instructions: incision open to air Discharge Instructions: Call or return if temperature above 100.4? F, increased abdominal pain, increased vaginal bleeding or any new problems. Stand Alone Forms: General Discharge Information Follow-up/Referrals: Darien Aaron MD [Physician] - 4 Weeks (Call your regular OB provider for a follow up appointment. If that does not work out, please see me in 4 weeks.) Discharge Medications: New ferrous sulfate 325 mg (65 mg iron) tablet 325 mg PO DAILY Qty: 30 0RF ibuprofen 600 mg tablet 600 mg PO Q6H PRN (Reason: cramps) Qty: 30 0RF hydrocodone-acetaminophen 5-325 mg tablet 1 - 2 tablet PO Q6H PRN (Reason: pain) Qty: 30 0RF Discontinued ondansetron 4 mg tablet,disintegrating 4 mg PO Q6H PRN (Reason: nausea and vomiting) Qty: 14 0RF Date of admission: 02/12/24 06:14 Primary Care Provider: PHYSICIAN,RECEIVING ROOM CLERK Admitting Provider: Darien Aaron Attending physician on admission: Darien Aaron Condition: Stable
[2024-02-12] MEDS: OXYTOCIN 30 UNITS/NS 500 ML 30 UNITS/500 ML BAG 125 UNITS IV CONT (13:04)
[2024-02-12 14:26] LABS: Rubella IgG Antibody 30.5 IU/ML
[2024-02-12 14:27] LABS: Hepatitis B Surface Antigen Negative (Negative)
[2024-02-12] MEDS: ACETAMINOPHEN 325 MG TABLET 650 MG PO ×2 (14:36→20:43)
[2024-02-12] MEDS: KETOROLAC 15 MG/ML VIAL (*BKC) IV PUSH ×2 (14:37→20:42)
[2024-02-12] MEDS: LIDOCAINE 5% PATCH 1 PATCH TRANSDERM (14:37)
--- NOTE | 2024-02-12 14:46 | OBPPTRN ---
Patient transferred to post room #292 via stretcher. Baby present per crib. Oriented to unit, room, information board, rooming in, admission packet and security measures. Patient verbalizes understanding.
[2024-02-12] MEDS: diphenhydrAMINE HCl INJ 50 MG/ML VIAL 25 MG IV PUSH (15:19)
[2024-02-12] MEDS: DOCUSATE SODIUM 100 MG CAPSULE PO (16:33)
[2024-02-12] MEDS: SIMETHICONE 80 MG TAB.CHEW PO (16:33)
[2024-02-12] MEDS: POLYSACCHARIDE IRON COMPLEX 150 MG CAPSULE PO (16:33)
[2024-02-12] MEDS: LORATADINE 10 MG TABLET PO (16:33)
[2024-02-12] MEDS: DEXTROSE 5%/0.45% SOD CHL 1,000 ML 125 ML IV CONT (17:47)
[2024-02-13] MEDS: KETOROLAC 15 MG/ML VIAL (*BKC) IV PUSH (02:45)
[2024-02-13] MEDS: ACETAMINOPHEN 325 MG TABLET 650 MG PO ×4 (02:45→22:55)
[2024-02-13 04:00] VITALS: BP 92/65; PULSE 58; RESP 16; TEMP 36.6; O2SAT 99
[2024-02-13 04:31] LABS: Basophils Percent Auto 0.2 % (0.2-1.2); Eosinophils Percent Auto 0.1 % (0-4.4); Hematocrit 25.2 % (37.0-47.0); Hemoglobin 8.3 g/dL (12.0-15.0); Immature Granulocyte Absolute 0.06 K/mm3 (0.00-0.031); Immature Granulocyte Percent A 0.6 % (0-0.5); Immature Platelet Fraction Pct 17.4 % (0.9-11.2); Lymphocytes Absolute Auto 1.84 K/mm3 (0.9-3.2); Lymphocytes Percent Auto 19.2 % (18.3-44.2); Mean Corpuscular HGB Conc 32.9 g/dl (32-36); Mean Corpuscular Hemoglobin 30.7 pg (26-34); Mean Corpuscular Volume 93.3 fl (80-100); Mean Platelet Volume 13.3 fl (7.4-10.4); Monocytes Absolute Auto 0.9 K/mm3 (0.1-0.6); Monocytes Percent Auto 9.7 % (2.6-8.5); Neutrophils Absolute Auto 6.7 K/mm3 (1.3-6.7); Neutrophils Percent Auto 70.2 % (45.5-73.1); Platelet Count Result 128 k/mm3 (150-375); White Blood Count 9.6 K/mm3 (4.5-10.0)
[2024-02-13 07:40] VITALS: BP 99/54; PULSE 66; RESP 16; TEMP 36.7; O2SAT 99
[2024-02-13] MEDS: POLYSACCHARIDE IRON COMPLEX 150 MG CAPSULE PO ×2 (08:52→17:12)
[2024-02-13] MEDS: DOCUSATE SODIUM 100 MG CAPSULE PO ×2 (08:52→17:11)
[2024-02-13] MEDS: SIMETHICONE 80 MG TAB.CHEW PO ×3 (08:52→17:11)
[2024-02-13] MEDS: IBUPROFEN 600 MG TABLET PO ×3 (08:52→22:55)
--- NOTE | 2024-02-13 09:22 | WPDANLDPN2 ---
Anes-Prog Note L&D Date/Time: 02/13/24 09:22 Comfortable throughout: section Neuraxial method: epidural Epidural/Spinal procedure site: clean & non-tender Neuro status: Neuro function grossly intact. Cardiovascular status: normal Respiratory status: normal Airway patency: baseline Mental status: baseline Post-Op hydration status: normal Vital Signs: Last Vital Signs Temp 36.7 C 02/13/24 07:40 Pulse 66 02/13/24 07:40 Resp 16 02/13/24 07:40 BP 99/54 L 02/13/24 07:40 Pulse Ox 99 02/13/24 07:40 O2 Del Method Room Air 02/13/24 07:05 Pain score (VAS): 2/10 I/O: Intake & Output 02/12/24 02/13/24 02/13/24 23:59 07:59 15:59 Output Total 150 1200 Balance -150 -1200 Post-procedural complaints: pruritis moderate, treatment effective Patient feedback: Patient satisfied with anesthetic care.
--- NOTE | 2024-02-13 09:22 | WPDANLDNPN2 ---
Anes-Prog Note L&D-Neuraxial Date/Time: 02/13/24 09:22 Neuraxial medications: epidural PF morphine Opiod-related complaints: pruritis moderate, treatment effective Patient feedback: Patient satisfied with post-operative pain management.
--- NOTE | 2024-02-13 11:36 | PM.OBPNVD ---
OB - PN: Subj Subjective Date/time seen: 02/13/24 11:36 Narrative: Pain OK. Tolerating diet. OB - PN: Obj Data Labs 02/13/24 03:10 Labs: Laboratory Results - last 24 hr 02/12/24 02/13/24 07:15 03:10 WBC 9.6 RBC 2.70 L Hgb 8.3 L Hct 25.2 L MCV 93.3 MCH 30.7 MCHC 32.9 RDW 13.0 Plt Count 128 L MPV 13.3 H Immature Gran % (Auto) 0.6 H Neut % (Auto) 70.2 Lymph % (Auto) 19.2 [place] % (Auto) 9.7 H Eos % (Auto) 0.1 Baso % (Auto) 0.2 Lymph # (Auto) 1.84 [place] # (Auto) 0.9 H Eos # (Auto) 0.0 Baso # (Auto) 0.0 Abs Immat Gran (auto) 0.06 H Absolute Neuts (auto) 6.7 Absolute Nucleated RBC 0.000 Nucleated RBC % 0.0 % Immature Plt Fraction 17.4 H Hep Bs Antigen Negative Rubella IgG Antibody 30.5 OB - PN A/P Plan day: 1 Comments: A: POD#1, doing well. P: Routine care. Exam Narrative: AVSS I/O OK ABD soft, nontender, fundus firm. Incision c/d/i. EXT nontender
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
[2024-02-13] MEDS: HYDROcodone/acetaminophen (*CRX) 5-325 MG TABLET 1 TAB PO (19:15)
[2024-02-13 20:26] VITALS: BP 106/75; PULSE 84; RESP 16; TEMP 36.8; O2SAT 100
[2024-02-14] VITALS: BP 109/70; PULSE 81; RESP 16; TEMP 36.7; O2SAT 100
[2024-02-14] MEDS: HYDROcodone/acetaminophen (*CRX) 10-325 MG TABLET 1 TAB PO (00:37)
[2024-02-14] MEDS: IBUPROFEN 600 MG TABLET PO ×4 (04:46→23:07)
[2024-02-14] MEDS: ACETAMINOPHEN 325 MG TABLET 650 MG PO ×4 (04:46→23:06)
[2024-02-14 08:05] VITALS: BP 108/71; PULSE 64; RESP 16; TEMP 36.3; O2SAT 100
--- NOTE | 2024-02-14 08:41 | PM.OBPNVD ---
OB - PN: Subj Subjective Date/time seen: 02/14/24 08:41 Narrative: Pain OK. Tolerating diet. Would like to go home. DCFS visit scheduled for today due to cocaine positivity in baby and mom. Would like DMPA for contraception. OB - PN: Obj Data Labs 02/13/24 03:10 OB - PN A/P Plan day: 2 Comments: A: POD#2, doing well overall. P: Possibly home today to f/u 4 weeks. DMPA before discharge. Exam Narrative: AVSS ABD soft, nontender, fundus firm. Incision c/d/i. EXT nontender
[2024-02-14] MEDS: DOCUSATE SODIUM 100 MG CAPSULE PO ×2 (09:41→17:16)
[2024-02-14] MEDS: SIMETHICONE 80 MG TAB.CHEW PO ×3 (09:41→17:16)
[2024-02-14] MEDS: POLYSACCHARIDE IRON COMPLEX 150 MG CAPSULE PO ×2 (09:41→17:16)
--- NOTE | 2024-02-14 13:30 | PC.NURSE ---
DCFS correctional case records supervisor here to see pt.
--- NOTE | 2024-02-14 14:00 | PC.NURSE ---
DCFS director case management is done with evaluation of patient for now. She is going to go make a home visit and will call Care Coordination later today with a plan of care.
[2024-02-14] MEDS: HYDROcodone/acetaminophen (*CRX) 5-325 MG TABLET 1 TAB PO ×2 (15:05→20:53)
[2024-02-14 16:10] VITALS: BP 117/82; PULSE 84; RESP 16; TEMP 37; O2SAT 100
[2024-02-14] MEDS: medroxyPROGESTERone ACETATE IM 150 MG/ML SYR IM (17:35)
[2024-02-14 19:15] VITALS: BP 108/69; PULSE 88; RESP 16; TEMP 37; O2SAT 100
[2024-02-15] VITALS: BP 114/70; PULSE 87; RESP 16; TEMP 36.9; O2SAT 100
[2024-02-15] MEDS: IBUPROFEN 600 MG TABLET PO ×2 (05:24→11:36)
[2024-02-15] MEDS: ACETAMINOPHEN 325 MG TABLET 650 MG PO ×2 (05:24→11:36)
[2024-02-15 05:25] VITALS: BP 103/66; PULSE 73; RESP 16; TEMP 36.6; O2SAT 100
[2024-02-15 07:25] VITALS: BP 111/80; PULSE 60; RESP 16; TEMP 37; O2SAT 99
[2024-02-15 08:00] VITALS: PULSE 60; RESP 16; O2SAT 99
[2024-02-15] MEDS: HYDROcodone/acetaminophen (*CRX) 5-325 MG TABLET 1 TAB PO (08:20)
[2024-02-15] MEDS: POLYSACCHARIDE IRON COMPLEX 150 MG CAPSULE PO (08:20)
[2024-02-15] MEDS: DOCUSATE SODIUM 100 MG CAPSULE PO (08:21)
[2024-02-15] MEDS: SIMETHICONE 80 MG TAB.CHEW PO (11:33)
--- NOTE | 2024-02-15 12:22 | PM.OBPNVD ---
OB - PN: Subj Subjective Date/time seen: 02/15/24 12:22 Narrative: Pain OK. Tolerating diet. Wound up staying overnight last night. Would like to go home. OB - PN: Obj Data Labs 02/13/24 03:10 OB - PN A/P Plan day: 3 Comments: A: POD#3, doing well. P: Home to f/u 4 weeks. Exam Narrative: AVSS ABD soft, nontender, fundus firm. Incision c/d/i. EXT nontender
--- NOTE | 2024-02-15 12:28 | PC.NURSE ---
Patient viewed the discharge video Mother & Baby Care, The First Two Weeks . Patient was given the opportunity and encouraged to ask questions. Patient verbalized understanding of information shared and has been given the mother/baby guide for home reference.
== END 2024-02-15 13:10 | disposition home or self-care (01) | DRG 540 ==
LOC: ANHLDR 12:14 → ANHOB2 14:49
PROVIDERS: Admitting Provider Obstetrics & Gynecology; Visit Provider Obstetrics & Gynecology
PROC: (CPT 59514; principal; 2024-02-12 10:30)
DX: O34.219 Maternal care for unspecified type scar from previous cesarean delivery (principal); O99.324 Drug use complicating childbirth; F14.90 Cocaine use, unspecified, uncomplicated; O77.0 Labor and delivery complicated by meconium in amniotic fluid; Z3A.38 38 weeks gestation of pregnancy; Z37.0 Single live birth
CPT/HCPCS: 36415; 80307; 85025; 85055; 86592; 86703; 86762; 86850; 86900; 86901; 87340; 88307; A9270; G0432; J0690; J1050; J1200; J1885; J2003; J2004; J2274; J2405; J2590; J2795; J3010; J7120

== ENCOUNTER 2024-02-19 13:02 | Observation (INO) | payer OTHER, SELFPAY ==
[2024-02-19] VITALS (48 sets, daily range): BP systolic 97–128; BP diastolic 58–108; PULSE 80–113; RESP 14–18; TEMP 36.8–37; O2SAT 98–100
--- NOTE | ~2024-02-19 | US_ITS ---
EXAMINATION: US pelvic complete DATE: 02/19/2024 19:16 INDICATION: AUB TECHNIQUE: Multiple transabdominal and endovaginal sonographic images of the pelvis were obtained. COMPARISON: None. FINDINGS: Uterus: 14.5 x 7.5 x 9.4 cm. Endometrial complex is thickened with increased flow, measuring approxim ately 19 mm. Heterogeneous material distends the endometrial cavity, without definite vascular flow. Heterogeneous 7.4 x 3.0 x 2.8 cm collection anterior to the lower uterine segment. Right Ovary: 3.3 x 3.5 x 2.6 cm. Vascular flow is present. No adnexal mass. Left Ovary: 3.4 x 1.3 x 2.8 cm. Vascular flow is present. No adnexal mass. There is no free fluid in the pelvis. IMPRESSION: Thickened hypervascular endometrium. The endometrial cavity is distended by heterogeneous avascular material, likely clot. No definite vas cular material in the endometrial cavity, noting that retained products of conception cannot be defin itively excluded. 7.4 x 3.0 x 2.8 cm bladder flap hematoma. Reviewed, dictated and finalized at location K. LING STRATEGIST IMPRESSION: Thickened hypervascular endometrium. The endometrial cavity is distended by heterogeneous avascular material, likely clot. No definite vascular material in the endometrial cavity, noting that ret ained products of conception cannot be definitively excluded. 7.4 x 3.0 x 2.8 cm bladder flap hematoma.
--- NOTE | 2024-02-19 15:24 | PC.NURSE ---
Pt crying c/o abd cramping requesting to be transferred to OB. Informed pt at this time that is not an option, providers are aware pt is waiting & in pain. RN spoke with gandy dancer informed of pt frustration.
[2024-02-19 16:15] LABS: Basophils Percent Auto 0.2 % (0.2-1.2); Eosinophils Absolute Auto 0.1 K/mm3 (0-0.3); Eosinophils Percent Auto 0.4 % (0-4.4); Hematocrit 27.5 % (37.0-47.0); Hemoglobin 8.9 g/dL (12.0-15.0); Immature Granulocyte Absolute 0.14 K/mm3 (0.00-0.031); Immature Granulocyte Percent A 0.8 % (0-0.5); Lymphocytes Absolute Auto 1.95 K/mm3 (0.9-3.2); Lymphocytes Percent Auto 11.1 % (18.3-44.2); Mean Corpuscular HGB Conc 32.4 g/dl (32-36); Mean Corpuscular Hemoglobin 30.1 pg (26-34); Mean Corpuscular Volume 92.9 fl (80-100); Mean Platelet Volume 10.2 fl (7.4-10.4); Monocytes Absolute Auto 1.1 K/mm3 (0.1-0.6); Monocytes Percent Auto 6.1 % (2.6-8.5); Neutrophils Absolute Auto 14.3 K/mm3 (1.3-6.7); Neutrophils Percent Auto 81.4 % (45.5-73.1); Platelet Count Result 410 k/mm3 (150-375); Red Blood Count 2.96 M/mm3 (4.2-5.4); Red Cell Distribution Width 13.2 % (11.5-14.5); White Blood Count 17.5 K/mm3 (4.5-10.0)
[2024-02-19 16:29] LABS: INR 1.1; Prothrombin Time 14.4 Seconds (11.1-14.7)
[2024-02-19 16:31] LABS: Partial Thromboplastin Time 27.1 Seconds (22.3-36.8)
[2024-02-19 16:33] LABS: Alanine Aminotransferase 16 U/L (6-35); Albumin Level 3.4 g/dL (3.5-5.1); Alkaline Phosphatase 128 U/L (38-126); Anion Gap 7 mmol/L (4-12); Aspartate Amino Transferase 21 U/L (14-36); Bilirubin,Total 0.6 mg/dL (0.2-1.3); Blood Urea Nitrogen 16 mg/dL (7-17); Calcium 8.7 mg/dL (8.4-10.2); Carbon Dioxide 20 mmol/L (22-30); Chloride 109 mmol/L (98-107); Estimated CRCL calculation 162 ml/min; Estimated Glomerular Filt Rate > 60; Glucose 98 mg/dL (65-110); Potassium 3.6 mmol/L (3.4-5.0); Sodium 136 mmol/L (137-145)
--- NOTE | 2024-02-19 18:13 | PC.NURSE ---
Pt reports is having less abd pain & feels like her vaginal bleeding is slowing down
--- NOTE | 2024-02-19 18:24 | ED_ITS ---
HPI - General Chief complaint: Vaginal Bleeding Stated complaint: vag bleed, c section 02/11 Time Seen by Provider: 02/19/24 17:13 Source: patient Mode of arrival: ambulatory Limitations: no limitations History of Present Illness HPI Narrative: This is a 23 year old female that presents to the ER for abnormal vaginal bleeding. Had a 1 week ago. Started to experience very heavy bleeding today which prompted her to be seen. Related Data Allergies Allergy/AdvReac Type Severity Reaction Status Date / Time cetirizine Allergy Unknown stomach Verified 07/08/23 16:20 pain nitrofurantoin Allergy Unknown Rash Verified 07/08/23 16:20 Nut Tree Allergy Unknown RASH Uncoded 07/08/23 16:20 Review of Systems Review of Systems: CONSTITUTIONAL: Denies fever GASTROINTESTINAL: Reports abdominal pain. Denies nausea, vomiting All systems reviewed & are unremarkable except as noted in HPI and below PMFSH Past Medical History Medical History HELLP syndrome Pre-diabetes Pre-eclampsia Tonsillitis Surgical History Surgical History History of section x3 Family History Family History Other Diabetes mellitus Heart disease Hypertension Social History Social History Years smoked: 1 Smoking status: Never smoker Tobacco type: cigarettes and e-cigarettes/vaping Second hand tobacco smoke exposure: No Alcohol intake: current Alcohol use details: social Substance use: current Do You Feel Safe in your Home?: Yes Lack of Transportation: YES Lack of Food: Never True Current Housing: I Have Housing Concerned About Future Housing: No Difficulty Paying Gas/Electric Bills: No Difficulty Paying for Meds: No Currently Unemployed: No Education: High School Diploma/GED Difficulty w/ Childcare or Family Care: No Living arrangements: with family Gender identity (if verbalized by the patient): Female Spiritual care concerns: No Exam Narrative: GENERAL: Well-appearing, well-nourished, and in no acute distress. HEAD: Normocephalic, atraumatic. EYES: EOMI. ENT: Nares clear, no rhinorrhea or epistaxis. Mucous membranes moist. CHEST: Clear to auscultation. No respiratory distress. No wheezes rales or rhonchi HEART: Regular rate and rhythm. No murmur heard. Normal peripheral pulses. ABDOMEN: Soft, nondistended, normal active bowel sounds. Mild tenderness to palpation throughout the abdomen. C section scar is clean, dry, intact EXTREMITIES: Normal range of motion. No edema. SKIN: Warm, dry, no rash. NEURO: No focal deficits. Alert and oriented x3. PSYCH: Normal mood and affect FEMALE GENITAL: Small amount of blood oozing from the vagina Course Course Emergency Course: patient and family updated on workup. she wishes to stay for observation Consultations Consultation #1: spoke with Dr. Aaron about patient and workup. Patient may follow up in clinic tomorrow if she wishes versus admission for observation Date: 02/19/24 Vital Signs Vital signs: Vital Signs Temperature 98.6 F 02/19/24 13:01 Pulse Rate 101 H 02/19/24 13:01 Respiratory Rate 18 02/19/24 13:01 Blood Pressure 125/85 02/19/24 13:01 Pulse Oximetry 100 02/19/24 13:01 Oxygen Delivery Room Air 02/19/24 13:01 Temperature 98.5 F 02/19/24 18:22 Pulse Rate 95 02/19/24 21:43 Respiratory Rate 14 02/19/24 21:22 Blood Pressure 120/71 02/19/24 21:43 Pulse Oximetry 99 02/19/24 21:47 Oxygen Delivery Room Air 02/19/24 13:01 MDM - OB/Uterine Contractions MDM Narrative Medical decision making narrative: Patient presents to the ER for heavy vaginal bleeding one week post c section. Mildly tachycardic upon arrival, this normalized with IV fluids. Her blood pressure is stable. She is afebrile and nontoxic appearing. CBC with leukocytosis to 17.5. Hemoglobin is up from discharge at 8.9. No concerning amount of bleeding currently. Pelvic ultrasound shows thickened hypervascular endometrium. Endometrial cavity is distended by heterogenous avascular material. Also shows a 7.4 x 3.0 x 2.8 cm bladder flap hematoma. Patient and family updated on workup. she wishes to stay for observation. Spoke with Dr. Aaron about patient and workup. Patient may follow up in clinic tomorrow if she wishes versus admission for observation Differential Diagnosis Differential diagnosis: Likely hemorrhage and other (retained POC) Lab Data Attestation: I reviewed the patient's lab results. 02/19/24 16:09 02/19/24 16:09 Labs: Lab Results 02/19/24 Range/Units 16:09 WBC 17.5 H (4.5-10.0) K/mm3 RBC 2.96 L (4.2-5.4) M/mm3 Hgb 8.9 L (12.0-15.0) g/dL Hct 27.5 L (37.0-47.0) % MCV 92.9 (80-100) fl MCH 30.1 (26-34) pg MCHC 32.4 (32-36) g/dl RDW 13.2 (11.5-14.5) % Plt Count 410 H D (150-375) k/mm3 MPV 10.2 (7.4-10.4) fl Immature Gran % (Auto) 0.8 H (0-0.5) % Neut % (Auto) 81.4 H (45.5-73.1) % Lymph % (Auto) 11.1 L (18.3-44.2) % [place] % (Auto) 6.1 (2.6-8.5) % Eos % (Auto) 0.4 (0-4.4) % Baso % (Auto) 0.2 (0.2-1.2) % Lymph # (Auto) 1.95 (0.9-3.2) K/mm3 [place] # (Auto) 1.1 H (0.1-0.6) K/mm3 Eos # (Auto) 0.1 (0-0.3) K/mm3 Baso # (Auto) 0.0 (0.0-0.1) K/mm3 Abs Immat Gran (auto) 0.14 H (0.00-0.031) K/mm3 Absolute Neuts (auto) 14.3 H (1.3-6.7) K/mm3 Absolute Nucleated RBC 0.000 (0.0-0.012) K/mm3 Nucleated RBC % 0.0 (0.0-0.2) % PT 14.4 (11.1-14.7) Seconds INR 1.1 APTT 27.1 (22.3-36.8) Seconds Sodium 136 L (137-145) mmol/L Potassium 3.6 (3.4-5.0) mmol/L Chloride 109 H (98-107) mmol/L Carbon Dioxide 20 L (22-30) mmol/L Anion Gap 7 (4-12) mmol/L BUN 16 (7-17) mg/dL Creatinine 0.40 L (0.7-1.0) mg/dL Estim Creat Clear Calc 162 ml/min Estimated GFR > 60 (59 - ) Glucose 98 (65-110) mg/dL Calcium 8.7 (8.4-10.2) mg/dL Total Bilirubin 0.6 (0.2-1.3) mg/dL AST 21 (14-36) U/L ALT 16 (6-35) U/L Alkaline Phosphatase 128 H (38-126) U/L Total Protein 7.0 (6.3-8.2) g/dL Albumin 3.4 L (3.5-5.1) g/dL Imaging Data Radiologist's impression: ITS Impressions Pelvis Ultrasound 02/19/24 19:24 IMPRESSION: Thickened hypervascular endometrium. The endometrial cavity is distended by heterogeneous avascular material, likely clot. No definite vascular material in the endometrial cavity, noting that retai priyank products of conception cannot be definitively excluded. 7.4 x 3.0 x 2.8 cm bladder flap hematoma. Critical Care Time Critical Care Time Critical Care Time: No Discharge Plan Discharge Clinical Impression: Post-operative haemorrhage Patient Disposition: Still a Patient Condition: Stable
[2024-02-19] MEDS: SODIUM CHLORIDE 0.9% IV 1,000 ML 999 ML IV CONT (18:42)
--- NOTE | 2024-02-19 19:22 | PC.NURSE ---
Jennifer warehouse examiner at bedside, speaking with pt & pts Aunt concerning their concern of care. Pts aunt has called twice during stay requesting lab results & personal information. No information given out over phone. Pt has been resting stating her pain has improved. RN has informed pt of POC during pts stay in ER. RN informed Jennifer of delay in provider assessment due to critical patients in the ER.
[2024-02-19] MEDS: SODIUM CHLORIDE 0.9% IV 1,000 ML 125 ML IV CONT (20:29)
--- NOTE | 2024-02-19 21:03 | PC.NURSE ---
2102-REPORT TO MELISSA IN OB. BED IS READY.
--- NOTE | 2024-02-19 21:54 | PC.NURSE ---
Called Dr. Aaron to verify orders, administer D5 half normal saline at 125 ml/hr, NPO after midnight, and vitals every four hours.
[2024-02-20] MEDS: DEXTROSE 5%/0.45% SOD CHL 1,000 ML 125 ML IV CONT (00:06)
[2024-02-20 01:57] VITALS: PULSE 88; PULSE 97; O2SAT 97; O2SAT 99
[2024-02-20 01:58] VITALS: BP 108/72; PULSE 83; PULSE 85; RESP 20; TEMP 36.5; O2SAT 100
[2024-02-20 05:49] VITALS: PULSE 81; O2SAT 97
[2024-02-20 05:50] VITALS: BP 110/64; BP 85/59; PULSE 100; PULSE 83; PULSE 93; RESP 18; TEMP 36.7; O2SAT 100
--- NOTE | 2024-02-20 06:15 | PC.NURSE ---
Report given to Kia Manzano RN.
--- NOTE | 2024-02-20 06:32 | PC.NURSE ---
Pt denies pain this am, small amount of bleeding noted on peripad, no clots. Pt states she voided around 0600 and passed a small clot. Pt voided 800, bloody urine with dime size clot noted.
[2024-02-20 06:38] LABS: Hematocrit 22.6 % (37.0-47.0); Hemoglobin 7.2 g/dL (12.0-15.0)
[2024-02-20 07:12] LABS: Barbiturate Screen Urine Negative (Negative); Benzodiazepines Screen Urine Negative (Negative)
[2024-02-20 07:27] LABS: Amphetamine Screen Urine Negative (Negative); Cannabinoid Screen Urine Negative (Negative); Cocaine Screen Urine Negative (Negative); Methadone Screen Urine Negative (Negative); Opiate Screen Urine Negative (Negative); Phencyclidine Screen Urine Negative (Negative)
--- NOTE | 2024-02-20 08:50 | PC.NURSE ---
Dr. Aaron at bedside to evaluate pt.
--- NOTE | 2024-02-20 08:56 | PM.IMHP ---
H&P: HPI History of Present Illness Date/Time: 02/20/24 08:56 Chief Complaint: Bleeding Narrative: 23 y/o POD#7 after repeat . She passed three large blood clots yesterday, so presented to the ED. Minimal bleeding here overnight. US shows clot in uterus, no suspicion for retained products. Bladder flap hematoma noted. Hgb has dropped from 8.9 to 7.2 with IV hydration. Minimal pain. She says the baby is doing well. Review of Systems Review of Systems: All systems reviewed & are unremarkable except as noted in HPI and below PMFSH Past Medical History Medical History HELLP syndrome Pre-diabetes Pre-eclampsia Tonsillitis Surgical History Surgical History History of section x3 Family History Family History Other Diabetes mellitus Heart disease Hypertension Social History Social History Years smoked: 1 Smoking status: Never smoker Tobacco type: cigarettes and e-cigarettes/vaping Second hand tobacco smoke exposure: No Alcohol intake: current Alcohol use details: social Substance use: current Do You Feel Safe in your Home?: Yes Lack of Transportation: YES Lack of Food: Never True Current Housing: I Have Housing Concerned About Future Housing: No Difficulty Paying Gas/Electric Bills: No Difficulty Paying for Meds: No Currently Unemployed: No Education: High School Diploma/GED Difficulty w/ Childcare or Family Care: No Living arrangements: with family Gender identity (if verbalized by the patient): Female Spiritual care concerns: No Meds Home Medications and Allergies Home Medications Medication Instructions Recorded Confirmed Type ferrous sulfate 325 mg (65 mg 325 mg PO DAILY #30 tabs 02/12/24 Rx iron) tablet hydrocodone 5 mg-acetaminophen 325 1 - 2 tablet PO Q6H PRN pain #30 02/12/24 Rx mg tablet tabs ibuprofen 600 mg tablet 600 mg PO Q6H PRN cramps #30 tabs 02/12/24 Rx Allergies Allergy/AdvReac Type Severity Reaction Status Date / Time cetirizine Allergy Unknown stomach Verified 02/19/24 23:24 pain nitrofurantoin Allergy Unknown Rash Verified 02/19/24 23:25 Nut Tree Allergy Unknown RASH Uncoded 02/19/24 23:25 Vital Signs Vital Signs - 24 hr 02/19/24 13:01 02/19/24 13:31 02/19/24 14:01 Temperature 37.0 C 37.0 C Pulse Rate 101 H 105 H 104 H Respiratory Rate 18 16 16 Blood Pressure 125/85 118/69 97/80 L Pulse Oximetry 100 100 100 Oxygen Delivery Room Air 02/19/24 14:31 02/19/24 15:30 02/19/24 16:30 Temperature 37.0 C Pulse Rate 105 H 113 H 110 H Respiratory Rate 16 16 16 Blood Pressure 97/58 L 101/70 104/67 Pulse Oximetry 100 100 100 Oxygen Delivery 02/19/24 17:30 02/19/24 18:22 02/19/24 15:30 Temperature 36.9 C 36.9 C Pulse Rate 103 H 103 H Respiratory Rate 16 18 Blood Pressure 112/72 110/69 128/108 H Pulse Oximetry 100 100 100 Oxygen Delivery 02/19/24 15:31 02/19/24 15:46 02/19/24 16:18 Temperature Pulse Rate Respiratory Rate Blood Pressure 101/70 Pulse Oximetry 98 100 100 Oxygen Delivery 02/19/24 16:19 02/19/24 16:30 02/19/24 16:31 Temperature Pulse Rate 107 H Respiratory Rate 14 Blood Pressure 107/68 104/67 Pulse Oximetry 100 100 100 Oxygen Delivery 02/19/24 16:45 02/19/24 17:00 02/19/24 17:01 Temperature Pulse Rate Respiratory Rate Blood Pressure 107/74 Pulse Oximetry 100 100 100 Oxygen Delivery 02/19/24 17:15 02/19/24 17:30 02/19/24 17:31 Temperature Pulse Rate Respiratory Rate Blood Pressure 112/72 Pulse Oximetry 100 100 100 Oxygen Delivery 02/19/24 17:45 02/19/24 18:00 02/19/24 18:01 Temperature Pulse Rate Respiratory Rate Blood Pressure 110/69 Pulse Oximetry 100 100 99 Oxygen Delivery 02/19/24 18:15 02/19/24 18:30 02/19/24 18:31 Temperature Pulse Rate Respiratory Rate Blood Pressure 120/77 Pulse Oximetry 100 100 99 Oxygen Delivery 02/19/24 18:45 02/19/24 19:00 02/19/24 19:01 Temperature Pulse Rate Respiratory Rate Blood Pressure 112/78 Pulse Oximetry 100 98 100 Oxygen Delivery 02/19/24 19:15 02/19/24 19:30 02/19/24 19:31 Temperature Pulse Rate Respiratory Rate Blood Pressure 119/78 Pulse Oximetry 100 99 100 Oxygen Delivery 02/19/24 19:45 02/19/24 20:00 02/19/24 20:01 Temperature Pulse Rate Respiratory Rate Blood Pressure 121/77 Pulse Oximetry 100 100 100 Oxygen Delivery 02/19/24 20:15 02/19/24 20:30 02/19/24 20:31 Temperature Pulse Rate Respiratory Rate Blood Pressure 123/81 Pulse Oximetry 100 100 100 Oxygen Delivery 02/19/24 20:45 02/19/24 21:00 02/19/24 21:01 Temperature Pulse Rate Respiratory Rate Blood Pressure 107/68 Pulse Oximetry 100 99 100 Oxygen Delivery 02/19/24 21:22 02/19/24 21:42 02/19/24 21:43 Temperature Pulse Rate 106 H 95 Respiratory Rate 14 Blood Pressure 107/68 120/71 Pulse Oximetry 100 99 Oxygen Delivery 02/19/24 21:47 02/19/24 21:52 02/19/24 21:59 Temperature Pulse Rate Respiratory Rate Blood Pressure Pulse Oximetry 99 99 99 Oxygen Delivery 02/19/24 22:04 02/19/24 22:09 02/19/24 22:12 Temperature Pulse Rate Respiratory Rate Blood Pressure Pulse Oximetry 100 100 100 Oxygen Delivery 02/20/24 01:57 02/20/24 01:57 02/20/24 01:58 Temperature Pulse Rate 85 Respiratory Rate Blood Pressure 108/72 Pulse Oximetry 99 97 Oxygen Delivery 02/20/24 05:49 02/20/24 05:50 02/20/24 05:50 Temperature Pulse Rate 93 Respiratory Rate Blood Pressure 85/59 L 110/64 Pulse Oximetry 97 Oxygen Delivery 02/20/24 05:50 02/19/24 22:30 02/19/24 21:47 Temperature 36.8 C Pulse Rate 100 104 H Respiratory Rate 16 Blood Pressure 120/71 Pulse Oximetry 99 Oxygen Delivery Room Air 02/20/24 01:58 02/20/24 05:50 Temperature 36.5 C 36.7 C Pulse Rate 83 83 Respiratory Rate 20 18 Blood Pressure 108/72 110/64 Pulse Oximetry 100 100 Oxygen Delivery Exam Const: Orientation/consciousness: patient oriented x3 Other: Well-developed, well-nourished female in no acute distress. GI: Other: ABD: Soft, nontender, nondistended. No guarding or rebound tenderness. No hepatosplenomegaly. Fundus firm, nontender, below umbilicus. Incision clean, dry and intact. Extrem: Other: Extremities: nontender with no edema Psych: Mental Status: mental status grossly normal Affect: normal affect H&P: Results Labs Labs: Short CBC 02/19/24 02/20/24 Range/Units 16:09 06:21 WBC 17.5 H (4.5-10.0) K/mm3 Hgb 8.9 L 7.2 L (12.0-15.0) g/dL Hct 27.5 L 22.6 L (37.0-47.0) % Plt Count 410 H D (150-375) k/mm3 BMP 02/19/24 16:09 Sodium 136 L Potassium 3.6 Chloride 109 H Carbon Dioxide 20 L BUN 16 Creatinine 0.40 L Glucose 98 Calcium 8.7 Liver Function 02/19/24 Range/Units 16:09 Total Bilirubin 0.6 (0.2-1.3) mg/dL AST 21 (14-36) U/L ALT 16 (6-35) U/L Alkaline Phosphatase 128 H (38-126) U/L Albumin 3.4 L (3.5-5.1) g/dL Assessment and Plan Assessment and plan (1) bleeding: Code(s): O72.1 - Other immediate hemorrhage Status: Acute Assessment and Plan: A: POD#7 after repeat , with increased bleeding yesterday. It's a little early for placental site bleeding, but that is still a possibility. Clinically stable today. P: Home with bleeding precautions, to continue home iron. Ibuprofen for pain. F/u as originally scheduled.
--- NOTE | 2024-02-20 09:03 | PC.NURSE ---
Saline lock removed, pt up to the bedside commode. Pt would like to shower before discharge. Towels, washcloths and toletries given to pt
== END 2024-02-20 09:32 | disposition home or self-care (01) ==
LOC: ANHED 17:21 → ANHOBPP 20:56
PROVIDERS: Emergency Medicine; Admitting Provider Obstetrics & Gynecology; Emergency Provider Physician Assistant; Visit Provider Obstetrics & Gynecology
DX: O72.1 Other immediate postpartum hemorrhage (principal); O99.335 Smoking (tobacco) complicating the puerperium; F17.290 Nicotine dependence, other tobacco product, uncomplicated
CPT/HCPCS: 36415; 76856; 80053; 80307; 85014; 85018; 85025; 85610; 85730; 96360; 99285; G0378; G0379; J7030

== ENCOUNTER 2024-06-17 12:04 | Emergency (ER) | payer OTHER, SELFPAY ==
[2024-06-17 12:15] VITALS: BP 134/88; PULSE 67; RESP 20; TEMP 37; O2SAT 100
--- NOTE | 2024-06-17 12:56 | ED_ITS ---
HPI - Dental/Oral General Chief complaint: Dental/Oral Stated complaint: toothache Time Seen by Provider: 06/17/24 12:51 Source: patient and RN notes reviewed Mode of arrival: ambulatory Limitations: no limitations History of Present Illness HPI Narrative: Patient presents today complaining of sudden onset left lower dental pain since yesterday. Denies any injury or known issues with the affected tooth. She has tried Tylenol and ibuprofen without relief. She has contacted her dentist who can get her in for an appointment in approximately 2 weeks. Related Data Allergies Allergy/AdvReac Type Severity Reaction Status Date / Time cetirizine Allergy Unknown stomach Verified 06/17/24 12:14 pain nitrofurantoin Allergy Unknown Rash Verified 06/17/24 12:14 Nut Tree Allergy Unknown RASH Uncoded 06/17/24 12:14 Review of Systems Review of Systems: CONSTITUTIONAL: Denies body aches, fever, chills, or sweats. EYES: Denies visual changes, redness, or discharge. ENT: Denies rhinorrhea, congestion, sore throat, or otalgia.+ tooth pain CARDIOVASCULAR: Denies chest pain, palpitations, or edema. RESPIRATORY: Denies cough or dyspnea. GASTROINTESTINAL: Denies abdominal pain, nausea, vomiting, or diarrhea. GENITOURINARY: Denies dysuria or hematuria. SKIN: Denies rash, itching, or wounds. MUSCULOSKELETAL: Denies back pain, joint pain, or myalgia. NEUROLOGIC: Denies headache, numbness, tingling, or weakness. PSYCH: Denies depression or anxiety. [facility] Past Medical History Medical History Pre-diabetes HELLP syndrome Pre-eclampsia Tonsillitis Surgical History Surgical History History of section x3 Family History Family History Other Diabetes mellitus Heart disease Hypertension Social History Social History Years smoked: 1 Smoking status: Never smoker Tobacco type: cigarettes and e-cigarettes/vaping Second hand tobacco smoke exposure: No Alcohol intake: current Alcohol use details: social Substance use: current Do You Feel Safe in your Home?: Yes Lack of Transportation: YES Lack of Food: Never True Current Housing: I Have Housing Concerned About Future Housing: No Difficulty Paying Gas/Electric Bills: No Difficulty Paying for Meds: No Currently Unemployed: No Education: High School Diploma/GED Difficulty w/ Childcare or Family Care: No Living arrangements: with family Gender identity (if verbalized by the patient): Female Spiritual care concerns: No Comments At time of signature, I have reviewed and agree with nursing past medical, surgical, social and family history unless otherwise noted. Please see nursing chart for further information. There is no relevant family history pertinent to the presenting complaint Exam Narrative: GENERAL: Well-appearing, well-nourished, and in moderate pain distress, tearful. HEAD: Normocephalic, atraumatic. EYES: EOMI. No redness or drainage. Conjunctivae normal. ENT: Mucous membranes pink and moist. Pain to tooth 19, which is slightly green color and has large filling. No obvious periapical abscess. No facial swelling noted. No trismus. NECK: Normal AROM. Supple. No lymphadenopathy. CHEST: No respiratory distress. EXTREMITIES: Normal range of motion. No edema. SKIN: Warm, dry, no rash. Capillary refill normal. Normal skin turgor. NEURO: No focal deficits. Alert and oriented x3. Gait steady. PSYCH: Normal affect. No signs of depression or anxiety. Course Course Level of Care: Express Care Visit Vital Signs Vital signs: Vital Signs Temperature 98.6 F 06/17/24 12:15 Pulse Rate 67 06/17/24 12:15 Respiratory Rate 20 06/17/24 12:15 Blood Pressure 134/88 06/17/24 12:15 Pulse Oximetry 100 06/17/24 12:15 Oxygen Delivery Room Air 06/17/24 12:15 Temperature 98.6 F 06/17/24 12:15 Pulse Rate 67 06/17/24 12:15 Respiratory Rate 20 06/17/24 12:15 Blood Pressure 134/88 06/17/24 12:15 Pulse Oximetry 100 06/17/24 12:15 Oxygen Delivery Room Air 06/17/24 12:15 Reviewed MDM - Dental/Oral MDM Narrative Medical decision making narrative: Patient will be started on a course of amoxicillin for presumed infection. She has been instructed to make an appointment with her dentist as soon as possible.Attempted to prescribed low dose narcotic pain medication for her acute pain, but all of them require prior authorization. Prescription for diclofenac sent instead. Differential Diagnosis Differential diagnosis: Likely gingival abscess, dental caries, toothache, dental abscess and fracture of tooth Critical Care Time Critical Care Time Critical Care Time: No Discharge Plan Discharge Clinical Impression: Dentalgia Patient Disposition: Home, Self-Care Condition: Stable Instructions: Antibiotic Form, Dental Abscess (ED) Additional Instructions: Please take the amoxicillin and diclofenac as directed. Do not take any additional Aleve or ibuprofen in addition to the diclofenac. Follow-up with your dentist as soon as possible for further evaluation. If you develop any shortness of breath or difficulty swallowing, please go to the ER immediately for further evaluation. Your blood pressure was elevated above 120/80 today at Urgent Care. This puts you above the threshold for follow up. Please schedule a followup visit with your personal physician as soon as possible, for further evaluation and treatment. Even blood pressure exceeding 120/80 may indicate pre-hypertension. Patient Language: Ukrainian Prescriptions: New amoxicillin 875 mg tablet 875 mg PO Q12H 10 Days Qty: 20 0RF diclofenac sodium 50 mg tablet,delayed release (DR/EC) 50 mg PO TID PRN (Reason: pain) Qty: 20 0RF Follow-up/Referrals: Jorge Luis Nolasco MD [Primary Care Provider] - Time of Disposition: 13:01
== END 2024-06-17 13:03 | disposition home or self-care (01) ==
PROVIDERS: Emergency Provider Nurse Practitioner; PCP Obstetrics & Gynecology
DX: K08.89 Other specified disorders of teeth and supporting structures (principal); R73.03 Prediabetes
CPT/HCPCS: 99213; G0463

== ENCOUNTER 2024-11-07 07:31 | Emergency (ER) | payer OTHER, SELFPAY ==
--- OUTSIDE RECORDS SUMMARY | 2024-11-07 07:35 | XMS_ITS | Clinical Summary ---
Author Organization [facility] Address [address] [place] [id number] Care Team Providers Care Corporate Scheduler Name Role Phone New Referring, Provider Primary Care Provider Un available Allergies No known active allergies Social History Tobacco Use Types Packs/Day Years Used Date Smoking Tobacco: Never Smokeless Tobacco: Never Alcohol Use Standard Drinks/Week Comments Never 0 (1 standard drink = 0.6 oz pur e alcohol) AUDIT-C Answer Date Recorded Q1: How often do you have a drink containing alc ohol? Never 08/22/2020 Average Number of Drinks Not on file 021 Frequency of Binge Drinking Not on file 07/26 Comments No Sex and Gender Information Value Date Recorded Sex Assigned at Not on file Legal Sex Female 7:19 AM CDT Gender Identity Not on file Sexual Orientation Not on file Last Filed Vital Signs Vital Sign Reading Time Taken Comments Blood Pressure 103/74 08/22/2020 7:24 AM CDT Pulse 66 08/22/2020 7:24 AM CDT Temperature 36.7 C (98 F) 08/22/2020 7:24 AM CDT Respiratory Rate 16 08/22/2020 7:24 AM CDT Oxygen Saturation 98% 08/22/2020 7:24 AM CDT Inhaled Oxygen Concentration - - Weight 59.8 kg (131 lb 13.4 oz) 08/22/2020 7:24 AM CDT Height 165.1 cm (5' 5) 08/22/2020 7:24 AM CDT Body Mass Index 21.94 08/22/2020 7:24 AM CDT Plan of Treatment Health Maintenance Due Date Last Done Comments Cervical Cancer Screening Pa p Smear (Age 21 to 29) Every 3 Years 2002 Cervical Cancer Screening 2002 Annual Physical 2005 HPV Vaccines (1 - 3-dose series) 2017 Meningococcal B Vaccine (1 o f 2 - Standard) 2018 Hepatitis C 2020 DTaP, Tdap and Td Vaccines ( 1 - Tdap) 2021 Hepatitis B Vaccines (1 of 3 - 19+ 3-dose series) 2021 COVID-19 Vaccine (1 - 2023-2 5 season) 2023 Meningococcal Vaccine Aged Out No amparo delilah eligible based on patient's age to complete this topic Pneumococcal Vaccine: Pediat rics (0 to 5 Years) and At-Risk Patients (6 to 49 Years) Aged Out No longer eligible b ased on patient's age to complete this topic RSV Immunizations Under 20 Months Aged Out No longer eligible based on patient's age to complete this topic Insurance [place] Care Teams Corporate Scheduler Relationship Specialty Start Date End Date New Referring, Provider PCP - General UNKNOWN PHYSICIAN SPECIALTY 08/22/20
--- OUTSIDE RECORDS SUMMARY | 2024-11-07 07:35 | XMS_ITS | Clinical Summary ---
Author Organization [facility] [id number] [facility] Address [facility] [place] [address] Care Team Providers Care Repair Department Supervisor Name Role Phone Unavailable Primary Care Provider Unavailabl e Allergies No known active allergies Surgical History Surgery Date Site/Laterality Comments US ABDOMEN COMPLETE W LIVER DOPPLER (C) 12/09/2017 R ight SECTION times 3 Social History Tobacco Use Types Packs/Day Years Used Date Smoking Tobacco: Never Assessed Comments No Sex and Gender Information Value Date Recorded Sex Assigned at Not on file Legal Sex Female 8:46 AM CDT Gender Identity Not on file Sexual Orientation Not on file Obstetrics History Para Term AB IAB SAB Ectopic Multiple Livin g Live Births 6 3 1 2 2 2 3 3 Date Outcome GA Total Labor Labor/2nd/3rd Weight Sex Type Anes PTL Kristen A1 A5 Name Clin SAB SAB 016 36w 0d 3.374 kg (7 lb 7 oz) F CS-LT ranv Combin ed Spinal /Epidu ral Livin g Delivery Location:[facility] 019 35w 0d 1.984 kg (4 lb 6 oz) F CS-LT ranv N Livin g Delivery Location:[facility] 023 Term 38w 0d 3.487 kg (7 lb 11 oz) M CS-LT ranv Livin g Complications:None Delivery Location:[facility] Last Filed Vital Signs Vital Sign Reading Time Taken Comments Blood Pressure 119/72 02/12/2024 12:17 AM DINKEY LOCOMOTIVE ENGINEER Pulse 65 02/12/2024 12:17 AM DINKEY LOCOMOTIVE ENGINEER Temperature 36.6 C (97.9 F) 02/11/2024 9:47 PM DINKEY LOCOMOTIVE ENGINEER Respiratory Rate 16 02/11/2024 9:47 PM DINKEY LOCOMOTIVE ENGINEER Oxygen Saturation 97% 08/26/2020 4:31 AM CDT Inhaled Oxygen Concentration - - Weight 70.7 kg (155 lb 12.8 oz) 02/11/2024 9:47 PM DINKEY LOCOMOTIVE ENGINEER Height 165.1 cm (5' 5) 08/26/2020 4:31 AM CDT Body Mass Index 25.93 08/26/2020 4:31 AM CDT Plan of Treatment Health Maintenance Due Date Last Done Comments Cervical Cancer Screening 2002 Depression Screening 2002 Hepatitis C Screening 2002 Meningococcal B Vaccine (1 of 2 - Standard) 2018 Regular Well Visit/Exam 18-64 2020 Influenza Vaccine (#1) 2024 03/05/2019, 2015 DTaP/Tdap/Td Vaccine (8 - Td or Tdap) 12/05/2028 12/05/2018, 07/23/2015, 11/19/2013, Additional history exists Hepatitis B Screening Completed 2002 , 2002, 2002 Pneumococcal vaccine <65 Aged Out 003, 01/31/2003, 2002 No longer eligible based on patient's age to complete this topic Varicella Vaccines Completed 05/28/2007, 04/12/2004 HPV Vaccines Completed 07/15/2016, 01/13/2016 Insurance [facility]PA
--- OUTSIDE RECORDS SUMMARY | 2024-11-07 07:35 | XMS_ITS | Clinical Summary ---
Author Organization [facility] Address [address] [place] [address] Care Team Providers Care Crm Architect Name Role Phone [place] Kacey [facility] Primary Care Provider [phone]- [phone] Source Comments [facility],non-owned Affiliates and Associated Physician Practices is amultiple site organization consisting of ambulatory clinics and hospital sitesin [place], [place], [place] and [place]. This disclosure is being madepursuant to the Care Everywhere program and may not contain all information available regarding this patient. Last updated 17.[facility] Allergies Active Allergy Reactions Criticality Noted Date Comments Nitrofurantoin Itching 10/06/2015 Peanut-Derived Shortness of Breath High 02/13/2014 Cetirizine 02/13/2014 Medications * Be aware that medications may not be up to date on this document. Alwaysverify current medications with the patient. WB-Uel-EC-[place] -3 ( GUMMIES/DHA & FA PO) Take 2 Each by mouth Active aspirin (Aspirin) 81 MG chew tablet Take 2 (two) tablets by mouth once daily Active ferrous sulfate 325 (65 FE) MG tablet Take 1 (one) tablet by mouth once daily Active magnesium oxide (Mag-Ox) 400 MG tabletIndicatio ns:prevention of headache Take 1 (one) tablet by mouth once daily Reasons: prevention of headache 30 tablet 3 Active Active Problems Patient Care Coordination No te Formatting of this note migh t be different from the original. 12/26/18 Diaper bank form completed, diapers given. 01/30/19 Diaper form completed, diapers given. 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 Her initial score at baseline was 7. Based off of her score of 7, Bekah does not warrant follow up. Patient will continue to be screened throughout , at intervals no closer than two weeks, for continued surveillance and early identification of depression until delivery. Patient denies mental health history. 12.13.18: Follow-up EPDS score=3 01.07.19 Follow-up EPDS score=5 abnormality in pregnan cy - gastroschisis 11/02/2018 02/04/2019 Overview (01/10/2019): Images from the original note were not included. [facility] PATIENT--PLEASE CALL [phone] (ex 2) IF TRIAGED OR ADMITTED Care Provider: Dr. Dolan --> plan MAR to [facility] (appointment on 12.26.18) [facility] consultants involved: RN- Patrick; AZRA- Adrienne; Pediatric Surgery HEATING AND BLENDING SUPERVISOR- Praveen Carrion; Neonatology- Dr. Cruz Diagnosis: Gatroschisis follow up: Transfer to [facility] for pediatric surgery evaluation and repair Radio Communications Superintendent: Dr. Weinberg Planned surveillance: Initial [facility] appointment 11.22.18. Returning to [facility] 12.13.18 & 01.07.19 for US/consults. Serial ultrasounds for growth every 2- 3 weeks. Weekly NST/BPP & targeted bowel views. Returning to [facility] 01.28.19 Delivery location, mode, and GA: [facility] Delivery at 36-37 weeks unless indicated earlier. Patient desires repeat - scheduled 02.12.19 at 10:30am Autopsy indicated: Genetics note: Loss Prevention Guard Concerns: 11/22/18- Teenage ; mental health history of PPD after her last child and adolescent therapist plan based on evaluation and is subject to change based on assessment. See Images or Cardiac under Chart Review for US/ ECHO/ MRI reports. Abnormal ultrasound 10/31/2018 Overview (10/31/2018): Possible gastroschisis, amniotic bands Elevated AFP 10/31/2018 04/27/2022 Overview (10/31/2018): Positive for OSB High risk teen , antepartum 10/31/2018 05/04/2022 Twin gestation with indeterm inate number of placentas and number of amniotic sacs, antepartum 08/14/2018 10/31/2018 Family History Medical History Relation Name Comments Asthma Brother 1 Asthma Brother 2 Relation Name Status Comments Brother 1 Alive Brother 2 Alive Brother 3 Alive Father Mother Sister 1 Alive Sister 2 Alive Social History Tobacco Use Types Packs/Day Years Used Date Smoking Tobacco: Every Day Cigarettes Passive Smoke Exposure: Yes Smokeless Tobacco: Never Tobacco Cessation:Ready to Q uit: Not Asked; Counseling Given: Not Answered Comments:Patient is trying to quit smoking and has her self down to smoking only 2 cigarettes per day. Alcohol Use Standard Drinks/Week Comments No 0 (1 standard drink = 0.6 oz pur e alcohol) Comments No Sex and Gender Information Value Date Recorded Sex Assigned at Not on file Legal Sex Female 1:49 PM CDT Gender Identity Not on file Sexual Orientation Not on file Last Filed Vital Signs Vital Sign Reading Time Taken Comments Blood Pressure 106/61 08/03/2022 10:06 AM CDT Pulse 99 08/03/2022 10:06 AM CDT Temperature 36.7 C (98 F) 02/04/2019 11:31 PM SUBSTANCE ABUSE TECHNICIAN Respiratory Rate 18 05/04/2022 8:49 AM SUBSTANCE ABUSE TECHNICIAN Oxygen Saturation 100% 02/01/2019 5:00 PM SUBSTANCE ABUSE TECHNICIAN Inhaled Oxygen Concentration - - Weight 73.2 kg (161 lb 6.4 oz) 08/03/2022 10:06 AM CDT Height 162.6 cm (5' 4) 03/09/2022 10:05 AM SUBSTANCE ABUSE TECHNICIAN Body Mass Index 27.7 03/09/2022 10:05 AM SUBSTANCE ABUSE TECHNICIAN Plan of Treatment Health Maintenance Due Date Last Done Comments HPV VACCINE (1 - 3-dose series) 2017 MENINGOCOCCAL (Group B) VACCINE SHARED DECISION-MAKING (1 of 2 - Standard) 2018 HEPATITIS C SCREENING 05/19/2020 DTAP/TDAP/TD VACCINES (1 - Tdap) 2021 HEPATITIS B VACCINE (1 of 3 - 19+ 3-dose series) 2021 PNEUMOCOCCAL VACCINE (1 of 2 - PCV) 2021 PAP SMEAR 2023 CHLAMYDIA/GONORRHEA SCREENING 06/29/2023, 01/06/2022 COVID-19 VACCINE (1 - 2023-2 5 season) 2023 DEPRESSION SCREENING 03/27/2024 INFLUENZA VACCINE (#1) 2024 9, 07/09/2015 ZOSTER VACCINE (1 of 2) 2052 HIV SCREENING Completed 07/26/2022, 05/27/2022, 01/28/2022 HIB VACCINE Aged Out No longer eligi ble based on patient's age to complete this topic MENINGOCOCCAL GROUPS A/C/Y/W VACCINE Aged Out No longer eligible b ased on patient's age to complete this topic Procedures Procedure Name Priority Date/Time Associated Diagnosis Comments CULTURE STREP B Routine 01/30/2019 3:11 PM SUBSTANCE ABUSE TECHNICIAN Supervision of other high risk , antepartum from Last 3 Months or Most Recently Relevant to Health Maintenance Results * (ABNORMAL) CULTURE STREP B (01/30/2019 3:11 PM SUBSTANCE ABUSE TECHNICIAN) Culture Strep B Growth of Streptococcus agalactiae (Group B)(AA) CHRIS 01/31/2019 11:59 AM SUBSTANCE ABUSE TECHNICIAN [facility] Microbiology MISCELLANEOUS SAMPLES / Unknown Collection / Unknown 01/30/2019 3:11 PM SUBSTANCE ABUSE TECHNICIAN 01/30/2019 3:22 PM SUBSTANCE ABUSE TECHNICIAN Narrative [facility] - 01/31/2019 11:59 AM SUBSTANCE ABUSE TECHNICIAN Susceptibility testing of penicillin, other beta-lactam antibiotics, and vancomycin is not necessary for beta-hemolytic streptococci groups A,B,C and G because resistant strains have not been recognized. Anu Munguia MD LAB - MICROBIOLOGY ORDERABLE S Final Result [facility] [address] [place] [address], [facility] [phone] from Last 3 Months or Most Recently Relevant to Health Maintenance Insurance [facility] SELF PAY NO INSURANCE Member Subscriber Plan / Payer (Ef fective for All Dates) Name:ItzelVivne Member ID:Not on file Relation to Subscriber:Not on file Name:VIV TEENE Subscriber ID:Not on file (Home) Address: [address] [place] [id number] Payer ID:Not on file Group ID:Not on file Type:Self Pay Address: [place], [place] MEDICAID - OUT OF STATE MEDICAID - OUT OF STATE [facility] Advance Directives * Full Code (Latest Code Status on File) Date Activated Date Inactivated Comments 01/30/2019 5:37 PM 02/02/2019 2:48 PM * Full Code Date Activated Date Inactivated Comments 01/30/2019 5:15 PM 01/30/2019 5:28 PM Care Teams Crm Architect Relationship Specialty Start Date End Date Trisha Biswas APRN-CNM PCP - General 03/09/22 [facility] 11/05/18
[2024-11-07 07:43] VITALS: BP 124/83; PULSE 60; RESP 15; TEMP 36.8; O2SAT 100
[2024-11-07 07:59] VITALS: BP 107/74; PULSE 56; RESP 16; O2SAT 99
[2024-11-07 08:01] LABS: BEDSIDEPREGUCG Negative (Negative)
[2024-11-07 08:07] LABS: Hematocrit 37.4 % (37.0-47.0); Hemoglobin 11.8 g/dL (12.0-15.0); Immature Granulocyte Percent A 0.2 % (0-0.5); Lymphocytes Absolute Auto 3.34 K/mm3 (0.9-3.2); Mean Corpuscular HGB Conc 31.6 g/dl (32-36); Mean Corpuscular Hemoglobin 29.6 pg (26-34); Mean Corpuscular Volume 93.7 fl (80-100); Nucleated Red Blood Cells Absolute Auto 0.000 K/mm3 (0.0-0.012); Nucleated Red Blood Cells Perc 0.0 % (0.0-0.2); Platelet Count Result 193 k/mm3 (150-375); Red Blood Count 3.99 M/mm3 (4.2-5.4); White Blood Count 8.2 K/mm3 (4.5-10.0)
--- OUTSIDE RECORDS SUMMARY | 2024-11-07 08:10 | XMS_ITS | Clinical Summary ---
Author Organization [facility] Address [address] [place] [address] Care Team Providers Care Air Conditioner Installer Helper Name Role Phone Manish [place] Kacey [facility] Primary Care Provider [phone]- [phone] Source Comments [facility],non-owned Affiliates and Associated Physician Practices is amultiple site organization consisting of ambulatory clinics and hospital sitesin [place], [place], [place] and [place]. This disclosure is being madepursuant to the Care Everywhere program and may not contain all information available regarding this patient. Last updated 17.[facility] Allergies Active Allergy Reactions Criticality Noted Date Comments Nitrofurantoin Itching 10/06/2015 Peanut-Derived Shortness of Breath High 02/13/2014 Cetirizine 02/13/2014 Medications * Be aware that medications may not be up to date on this document. Alwaysverify current medications with the patient. 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 Her initial [...] from the original note were not included. [facility] PATIENT--PLEASE CALL [phone] (ex 2) IF TRIAGED OR ADMITTED Care Provider: Dr. Dolan --> plan MAR to [facility] (appointment on 12.26.18) [facility] consultants involved: RN- Patrick; AZRA- Adrienne; Pediatric Surgery TRACK AND FIELD COACH- Praveen Carrion; Neonatology- Dr. Cruz Diagnosis: Gatroschisis follow up: Transfer to [facility] for pediatric surgery evaluation and repair Gerontological Nurse Practitioner: Dr. Weinberg Planned surveillance: Initial [facility] appointment 11.22.18. Returning to [facility] 12.13.18 & 01.07.19 for US/consults. Serial ultrasounds for growth every 2- 3 weeks. Weekly NST/BPP & targeted bowel views. Returning to [facility] 01.28.19 Delivery location, mode, and GA: [facility] Delivery at 36-37 weeks unless indicated earlier. Patient desires repeat - scheduled 02.12.19 at 10:30am Autopsy indicated: Genetics note: Medical Office Technology Instructor Concerns: 11/22/18- Teenage ; mental health history of PPD after her last childhood development teacher plan based on evaluation and is subject [...] 36.7 C (98 F) 02/04/2019 11:31 PM LOOPER OPERATOR Respiratory Rate 18 05/04/2022 8:49 AM LOOPER OPERATOR Oxygen Saturation 100% 02/01/2019 5:00 PM LOOPER OPERATOR Inhaled Oxygen Concentration - - Weight 73.2 kg (161 lb 6.4 oz) 08/03/2022 10:06 AM CDT Height 162.6 cm (5' 4) 03/09/2022 10:05 AM LOOPER OPERATOR Body Mass Index 27.7 03/09/2022 10:05 AM LOOPER OPERATOR Plan of Treatment Health Maintenance Due Date [...] CULTURE STREP B Routine 01/30/2019 3:11 PM LOOPER OPERATOR Supervision of other high risk , antepartum from Last 3 Months or Most Recently Relevant to Health Maintenance Results * (ABNORMAL) CULTURE STREP B (01/30/2019 3:11 PM LOOPER OPERATOR) Culture Strep B Growth of Streptococcus agalactiae (Group B)(AA) CHRIS 01/31/2019 11:59 AM LOOPER OPERATOR [facility] Microbiology MISCELLANEOUS SAMPLES / Unknown Collection / Unknown 01/30/2019 3:11 PM LOOPER OPERATOR 01/30/2019 3:22 PM LOOPER OPERATOR Narrative [facility] - 01/31/2019 11:59 AM LOOPER OPERATOR Susceptibility testing of penicillin, other beta-lactam antibiotics, and vancomycin is not necessary for beta-hemolytic streptococci groups A,B,C and G because resistant strains have not been recognized. Anu Munguia MD LAB - MICROBIOLOGY ORDERABLE S Final Result [facility] [address] [place] [address], [facility] [phone] from Last 3 Months or Most Recently Relevant to Health Maintenance Insurance [facility] SELF PAY NO INSURANCE Member Subscriber Plan / Payer (Ef fective for All Dates) Name:ItzelVivne Member ID:Not on file Relation to Subscriber:Not on file Name:VIV TEENE Subscriber ID:Not on file (Home) Address: [address] [place] [id number] Payer ID:Not on file Group ID:Not on file Type:Self Pay Address: [place], [place] MEDICAID - OUT OF STATE MEDICAID - OUT OF STATE [facility] Advance Directives * Full Code (Latest Code Status on File) Date Activated Date Inactivated Comments 01/30/2019 5:37 PM 02/02/2019 2:48 PM * Full Code Date Activated Date Inactivated Comments 01/30/2019 5:15 PM 01/30/2019 5:28 PM Care Teams Air Conditioner Installer Helper Relationship Specialty Start Date End Date Trisha Biswas APRN-CNM PCP - General 03/09/22 [facility] 11/05/18
--- OUTSIDE RECORDS SUMMARY | 2024-11-07 08:10 | XMS_ITS | Clinical Summary ---
Author Organization [facility] Address [address] [place] [address] Care Team Providers Care Junior Copywriter Name Role Phone New Referring, Provider Primary [...] patient's age to complete this topic Insurance MILO Care Teams Junior Copywriter Relationship Specialty Start Date End Date New Referring, Provider PCP - General UNKNOWN PHYSICIAN SPECIALTY 08/22/20
--- OUTSIDE RECORDS SUMMARY | 2024-11-07 08:10 | XMS_ITS | Clinical Summary ---
Author Organization [place] [id number] [facility] Address [facility] [place] [address] Care Team Providers Care Fishing Vessel Captain Name Role Phone Unavailable Primary Care Provider [...] ed Spinal /Epidu ral Livin g Delivery Location:[place] 019 35w 0d 1.984 kg (4 lb 6 oz) F CS-LT ranv N Livin g Delivery Location:[facility] 023 Term 38w 0d 3.487 kg (7 lb 11 oz) M CS-LT ranv Livin g Complications:None Delivery Location:[place] Last Filed Vital Signs Vital Sign Reading Time Taken Comments Blood Pressure 119/72 02/12/2024 12:17 AM PLANT ANATOMIST Pulse 65 02/12/2024 12:17 AM PLANT ANATOMIST Temperature 36.6 C (97.9 F) 02/11/2024 9:47 PM PLANT ANATOMIST Respiratory Rate 16 02/11/2024 9:47 PM PLANT ANATOMIST Oxygen Saturation 97% 08/26/2020 4:31 AM CDT Inhaled Oxygen Concentration - - Weight 70.7 kg (155 lb 12.8 oz) 02/11/2024 9:47 PM PLANT ANATOMIST Height 165.1 cm (5' 5) 08/26/2020 4:31 [...] 04/12/2004 HPV Vaccines Completed 07/15/2016, 01/13/2016 Insurance [facility] IDPA
[2024-11-07 08:13] LABS: Add Urine Microscopic? YES; Appearance Urine Clear (Clear); Glucose Urine UA Negative (Negative); Leukocyte Esterase Ur 1+ LEU/UL (Negative); Nitrate Urine Negative (Negative); Non Pathogenic Casts 0-2; Specific Grav Ur 1.026 (1.001-1.035)
[2024-11-07 08:27] LABS: Alanine Aminotransferase 23 U/L (6-35); Albumin Level 4.1 g/dL (3.5-5.1); Alkaline Phosphatase 92 U/L (38-126); Anion Gap 9 mmol/L (4-12); Aspartate Amino Transferase 34 U/L (14-36); Bilirubin,Total 0.5 mg/dL (0.2-1.3); Blood Urea Nitrogen 15 mg/dL (7-17); Calcium 9.6 mg/dL (8.4-10.2); Carbon Dioxide 23 mmol/L (22-30); Chloride 104 mmol/L (98-107); Estimated CRCL calculation 109 ml/min; Estimated Glomerular Filt Rate > 60; Glucose 90 mg/dL (65-110); Lipase 132 U/L (23-300); Potassium 3.8 mmol/L (3.4-5.0); Sodium 136 mmol/L (137-145); Total Protein 7.5 g/dL (6.3-8.2)
--- NOTE | 2024-11-07 08:30 | ED_ITS ---
HPI - General Adult General Chief complaint: Abdominal Pain Stated complaint: abdominal pain Time Seen by Provider: 11/07/24 08:03 History of Present Illness HPI narrative: This is a 24-year-old female presenting with 2 weeks of epigastric pain. Patient says that the pain is intermittent throughout the day. It is usually triggered by food. It improves when she takes Motrin or drinks warm water. She describes it as a sharp pain in the epigastric area radiating to her back. She has not tried Tums or antacids. She has had 1 episode of nausea and vomiting and some abdominal bloating. Patient states she takes Motrin on a daily basis. He also eats a fatty diet. Related Data Allergies Allergy/AdvReac Type Severity Reaction Status Date / Time cetirizine Allergy Unknown stomach Verified 11/07/24 07:42 pain nitrofurantoin Allergy Unknown Rash Verified 11/07/24 07:42 Nut Tree Allergy Unknown RASH Uncoded 11/07/24 07:42 PMFSH Past Medical History Medical History Pre-diabetes HELLP syndrome Pre-eclampsia Tonsillitis Surgical History Surgical History History of section x3 Family History Family History Other Diabetes mellitus Heart disease Hypertension Social History Social History Years smoked: 1 Smoking status: Never smoker Tobacco type: cigarettes and e-cigarettes/vaping Second hand tobacco smoke exposure: No Alcohol intake: current Alcohol use details: social Substance use: current Do You Feel Safe in your Home?: Yes Lack of Transportation: YES Lack of Food: Never True Current Housing: I Have Housing Concerned About Future Housing: No Difficulty Paying Gas/Electric Bills: No Difficulty Paying for Meds: No Currently Unemployed: No Education: High School Diploma/GED Difficulty w/ Childcare or Family Care: No Living arrangements: with family Gender identity (if verbalized by the patient): Female Spiritual care concerns: No Exam 2 Narrative: APPEARANCE: No apparent distress. Well appearing Head: atraumatic. EYES: EOMI, NOSE: Atraumatic NECK: Trachea midline RESPIRATORY: No increased rate of breathing clear to auscultation CARDIOVASCULAR: RRR, ABDOMINAL: Non-distended soft nontender no guarding rebound MUSCULOSKELETAl: No obvious deformities NEURO: Alert. Moving 4/4 extremities SKIN:: Warm, dry. Normal color PSYCHIATRIC: Normal affect Course Vital Signs Vital signs: Vital Signs Temperature 98.3 F 11/07/24 07:43 Pulse Rate 60 11/07/24 07:43 Respiratory Rate 15 11/07/24 07:43 Blood Pressure 124/83 11/07/24 07:43 Pulse Oximetry 100 11/07/24 07:43 Oxygen Delivery Room Air 11/07/24 07:43 Temperature 98.3 F 11/07/24 07:43 Pulse Rate 56 L 11/07/24 07:59 Respiratory Rate 16 11/07/24 07:59 Blood Pressure 107/74 11/07/24 07:59 Pulse Oximetry 99 11/07/24 07:59 Oxygen Delivery Room Air 11/07/24 07:43 Medical Decision Making [facility] Narrative Medical decision making narrative: -Course: 24-year-old female presenting with 2 weeks of epigastric pain. Patient uses NSAIDs on a daily basis. She also eats a high fat diet. Vital signs are stable and she has a benign abdominal exam. Presentation most consistent with gastritis/GERD/peptic ulcer disease. Gallbladder disease pancreatitis considered felt laboratory studies within normal limits her abdominal exam is benign. Patient be discharged on a course of Pepcid with primary care follow-up. Given return precautions. -DDX includes but is not limited to: Gastritis, peptic ulcer disease, GERD, biliary colic, pancreatitis -Dx tests considered but not ordered: CT abdomen pelvis-young age, benign abdominal exam Vital Signs Vital Signs: Vital Signs Temperature 98.3 F 11/07/24 07:43 Pulse Rate 60 11/07/24 07:43 Respiratory Rate 15 11/07/24 07:43 Blood Pressure 124/83 11/07/24 07:43 Pulse Oximetry 100 11/07/24 07:43 Oxygen Delivery Room Air 11/07/24 07:43 Temperature 98.3 F 11/07/24 07:43 Pulse Rate 56 L 11/07/24 07:59 Respiratory Rate 16 11/07/24 07:59 Blood Pressure 107/74 11/07/24 07:59 Pulse Oximetry 99 11/07/24 07:59 Oxygen Delivery Room Air 11/07/24 07:43 Lab Data 11/07/24 08:00 11/07/24 08:00 Labs: Lab Results 11/07/24 11/07/24 Range/Units 07:58 08:00 WBC 8.2 (4.5-10.0) K/mm3 RBC 3.99 L (4.2-5.4) M/mm3 Hgb 11.8 L D (12.0-15.0) g/dL Hct 37.4 (37.0-47.0) % MCV 93.7 (80-100) fl MCH 29.6 (26-34) pg MCHC 31.6 L (32-36) g/dl RDW 12.9 (11.5-14.5) % Plt Count 193 D (150-375) k/mm3 MPV 12.1 H (7.4-10.4) fl Immature Gran % (Auto) 0.2 (0-0.5) % Neut % (Auto) 47.4 (45.5-73.1) % Lymph % (Auto) 40.8 (18.3-44.2) % Tillman % (Auto) 8.4 (2.6-8.5) % Eos % (Auto) 2.8 (0-4.4) % Baso % (Auto) 0.4 (0.2-1.2) % Lymph # (Auto) 3.34 H (0.9-3.2) K/mm3 Tillman # (Auto) 0.7 H (0.1-0.6) K/mm3 Eos # (Auto) 0.2 (0-0.3) K/mm3 Baso # (Auto) 0.0 (0.0-0.1) K/mm3 Abs Immat Gran (auto) 0.02 (0.00-0.031) K/mm3 Absolute Neuts (auto) 3.9 (1.3-6.7) K/mm3 Absolute Nucleated RBC 0.000 (0.0-0.012) K/mm3 Nucleated RBC % 0.0 (0.0-0.2) % Sodium 136 L (137-145) mmol/L Potassium 3.8 (3.4-5.0) mmol/L Chloride 104 (98-107) mmol/L Carbon Dioxide 23 (22-30) mmol/L Anion Gap 9 (4-12) mmol/L BUN 15 (7-17) mg/dL Creatinine 0.65 L (0.7-1.0) mg/dL Estim Creat Clear Calc 109 ml/min Estimated GFR > 60 (59 - ) Glucose 90 (65-110) mg/dL Calcium 9.6 (8.4-10.2) mg/dL Total Bilirubin 0.5 (0.2-1.3) mg/dL AST 34 (14-36) U/L ALT 23 (6-35) U/L Alkaline Phosphatase 92 (38-126) U/L Total Protein 7.5 (6.3-8.2) g/dL Albumin 4.1 (3.5-5.1) g/dL Lipase 132 (23-300) U/L Urine Color Yellow (Yellow) Urine Appearance Clear (Clear) Urine pH 5.5 (5.0-9.0) Ur Specific [place] 1.026 (1.001-1.035) Urine Protein Negative (Negative) mg/dL Urine Glucose (UA) Negative (Negative) mg/dL Urine Ketones Negative (Negative) mg/dL Ur Blood (Man) 2+ H (Negative) Urine Nitrate Negative (Negative) Urine Bilirubin Negative (Negative) Urine Urobilinogen 0.2 (<2.0) mg/dL Leukocyte Esterase Rfl 1+ H (Negative) JAMSHID/UL Urine RBC 0-2 (0-2) /hpf Urine WBC 21-50 H (0-3) /hpf Ur Squamous Epith Cells Occasional (Few) /hpf Urine Bacteria Rare /hpf Urine Casts 0-2 POC Urine HCG, Qual Negative (Negative) Discharge Plan Discharge Clinical Impression: Gastritis Patient Disposition: Home Condition: Stable Instructions: Antibiotic Form, Gastritis (DC), Diet for Stomach Ulcers and Gastritis (ED) Additional Instructions: Please take Pepcid twice a day for 6 weeks. Please it here to the diet guide for stomach ulcers and gastritis. Return if you develop fevers, severe abdominal pain or intractable nausea vomiting. Follow-up with primary care physician listed below. Patient Language: Kiswahili Prescriptions: New famotidine [Pepcid] 20 mg tablet 20 mg PO BID 42 Days Qty: 84 0RF No Action amoxicillin 875 mg tablet 875 mg PO Q12H 10 Days Qty: 20 0RF diclofenac sodium 50 mg tablet,delayed release (DR/EC) 50 mg PO TID PRN (Reason: pain) Qty: 20 0RF Follow-up/Referrals: Kathy Ny DO [Physician] - 1 Week (gastritis. establish pcp ) PHYSICIAN,RN IMMUNOLOGY [Primary Care Provider] -
[2024-11-07] MEDS: MAG HYDROX/AL HYDROX/SIMETH 30 ML UDC PO (08:49)
[2024-11-07 08:50] VITALS: BP 115/77; PULSE 55; RESP 16; O2SAT 100
[2024-11-07] MEDS: FAMOTIDINE 20 MG/2 ML VIAL IV PUSH (08:50)
== END 2024-11-07 09:05 | disposition home or self-care (01) ==
PROVIDERS: Emergency Provider Emergency Medicine
DX: K29.70 Gastritis, unspecified, without bleeding (principal); R73.03 Prediabetes
CPT/HCPCS: 36415; 80053; 81001; 81025; 83690; 85025; 87086; 96374; 99284; A9270

== ENCOUNTER 2025-02-13 08:13 | Emergency (ER) | payer OTHER, SELFPAY ==
--- NOTE | ~2025-02-13 | CT_ITS ---
EXAM/PROCEDURE: CT abdomen pelvis w con HISTORY: RUQ, epigatric pain COMPARISON: None available. TECHNIQUE: IV contrast enhanced CT of abdomen and pelvis FINDINGS: The bowel gas pattern is nonobstructive with no free air free fluid or pneumatosis. Gallbladder wall thickening with small radiopaque gallstones noted. No gross biliary ductal dilatation. The adrenal glands liver pancreas spleen stomach kidneys urinary bladder uterus and adnexal regions unremarkable. No grossly inflamed appendix. Aorta appears normal. Discrete filling defect in the right ovarian vein suspicious for right ovarian venous see image 43 series 601 the coronal series. Thrombosis. Mild diastases of the rectus abdominis noted. The bones appear intact. Extra peritoneal soft tissues unremarkable. Lung bases clear. Heart size normal. IMPRESSION: 1. Gallbladder findings suspicious for cholelithiasis and developing cholecystitis. 2. Acute appearing right ovarian venous thrombosis suspected. Reviewed, dictated and finalized at location A. [employer] IMPRESSION: 1. Gallbladder findings suspicious for cholelithiasis and developing cholecysti tis. 2. Acute appearing right ovarian venous thrombosis suspected.
--- NOTE | ~2025-02-13 | US_ITS ---
EXAM/PROCEDURE: US pelvic complete HISTORY: R ovarian venous thrombosis? COMPARISON: None available. LMP: Irregular TECHNIQUE: Directed evaluation performed by technologist and myself attempting to evaluate ovarian veins and pelvic structures. FINDINGS: The ovarian veins could not be reliably identified. The uterus measures 7.2 x 3.0 x 4.1 cm and appears normal. Images stripe: 8.6 mm Right ovary: Nonvisualized. Left ovary: 2.1 x 1.1 x 2.3 cm and appears normal in echotexture and vascular flow. IMPRESSION: 1. Nonvisualization of the ovarian veins, nondiagnostic for evaluating venous patency. 2. Normal appearance of the left ovary and uterus. 3. Nonvisualization of the right ovary. COMMENT: Findings on CT examination are not definitive. If more definitive evaluation is indicated, dynamic phase contrast-enhanced CT with delayed venous phase or MR venography may provide additional beneficial information. Reviewed, dictated and finalized at location A. [facility] [employer] IMPRESSION: 1. Nonvisualization of the ovarian veins, nondiagnostic for evaluating venous p atency. 2. Normal appearance of the left ovary and uterus. 3. Nonvisualization of the right ovary. COMMENT: Findings on CT examination are not definitive. If more definitive eval uation is indicated, dynamic phase contrast-enhanced CT with delayed venous pha se or MR venography may provide additional beneficial information.
[2025-02-13 08:23] VITALS: BP 138/85; PULSE 74; RESP 18; TEMP 36.8; O2SAT 97
[2025-02-13 08:38] LABS: Hematocrit 38.3 % (37.0-47.0); Hemoglobin 12.6 g/dL (12.0-15.0); Immature Granulocyte Percent A 0.3 % (0-0.5); Lymphocytes Absolute Auto 3.13 K/mm3 (0.9-3.2); Mean Corpuscular HGB Conc 32.9 g/dl (32-36); Mean Corpuscular Hemoglobin 30.4 pg (26-34); Mean Corpuscular Volume 92.3 fl (80-100); Nucleated Red Blood Cells Absolute Auto 0.000 K/mm3 (0.0-0.012); Nucleated Red Blood Cells Perc 0.0 % (0.0-0.2); Platelet Count Result 221 k/mm3 (150-375); Red Blood Count 4.15 M/mm3 (4.2-5.4); White Blood Count 11.7 K/mm3 (4.5-10.0)
[2025-02-13 08:47] LABS: Alanine Aminotransferase 28 U/L (6-35); Albumin Level 4.6 g/dL (3.5-5.1); Alkaline Phosphatase 101 U/L (38-126); Anion Gap 9 mmol/L (4-12); Aspartate Amino Transferase 29 U/L (14-36); Bilirubin,Total 0.6 mg/dL (0.2-1.3); Blood Urea Nitrogen 10 mg/dL (7-17); Calcium 9.5 mg/dL (8.4-10.2); Carbon Dioxide 24 mmol/L (22-30); Chloride 103 mmol/L (98-107); Estimated CRCL calculation 114 ml/min; Estimated Glomerular Filt Rate > 60; Glucose 109 mg/dL (65-110); Lipase 126 U/L (23-300); Potassium 3.8 mmol/L (3.4-5.0); Sodium 136 mmol/L (137-145); Total Protein 8.4 g/dL (6.3-8.2)
[2025-02-13] MEDS: SODIUM CHLORIDE 0.9% IV 1,000 ML 999 ML IV CONT (09:46)
[2025-02-13] MEDS: FAMOTIDINE 20 MG/2 ML VIAL IV PUSH (09:46)
[2025-02-13 09:47] VITALS: BP 101/66; PULSE 71; RESP 16; O2SAT 99
--- NOTE | 2025-02-13 10:00 | ED.ABDPAIN ---
HPI - Abdominal Pain General Chief Complaint: Abdominal Pain Stated Complaint: RUQ abdominal pain Time Seen by Provider: 02/13/25 09:02 Source: patient Mode of arrival: ambulatory Limitations: no limitations History of Present Illness HPI narrative: Patient is a 24-year-old female who presents the ED with report of upper abdominal pain. Patient reports having burning pain in her epigastric region, right upper quadrant for the past few months. She was seen in the ED here in October and diagnosed with gastritis. She was started on Pepcid b.i.d. for 6 weeks. She states she finished this about a week ago and symptoms have worsened since then. Worse with certain foods, particularly fried foods. Described as a burning sensation. Reports intermittent nausea and vomiting. Denies diarrhea, rectal bleeding, melena, fevers. Related Data Allergies Allergy/AdvReac Type Severity Reaction Status Date / Time cetirizine Allergy Unknown stomach Verified 02/13/25 08:27 pain nitrofurantoin Allergy Unknown Rash Verified 02/13/25 08:27 Nut Tree Allergy Unknown RASH Uncoded 11/07/24 07:42 Review of Systems Review of Systems: All systems reviewed & are unremarkable except as noted in HPI. All systems reviewed & are unremarkable except as noted in HPI and below PMFSH Past Medical History Medical History Pre-diabetes HELLP syndrome Pre-eclampsia Tonsillitis Surgical History Surgical History History of section x3 Family History Family History Other Diabetes mellitus Heart disease Hypertension Social History Social History Years smoked: 1 Smoking status: Never smoker Tobacco type: cigarettes and e-cigarettes/vaping Second hand tobacco smoke exposure: No Alcohol intake: current Alcohol use details: social Substance use: current Do You Feel Safe in your Home?: Yes Lack of Transportation: YES Lack of Food: Never True Current Housing: I Have Housing Concerned About Future Housing: No Difficulty Paying Gas/Electric Bills: No Difficulty Paying for Meds: No Currently Unemployed: No Education: High School Diploma/GED Difficulty w/ Childcare or Family Care: No Living arrangements: with family Gender identity (if verbalized by the patient): Female Spiritual care concerns: No Exam Narrative: GENERAL: Well appearing, well-nourished, non-toxic, in no acute distress. HEAD: Normocephalic, atraumatic. RESPIRATORY: Airway patent, respirations nonlabored. Clear to auscultation bilaterally, no rales, rhonchi, wheezing. CARDIOVASCULAR: Regular rate and rhythm without murmurs, rubs, or gallops. ABDOMINAL: Soft, mild tenderness palpation to epigastric region, right upper quadrant, nondistended. Normoactive BS. MUSCULOSKELETAL: Moves all extremities. No gross deformities. SKIN: Warm, dry, normal color. NEURO: A&O X3. Speech clear. Cranial nerves II-XII grossly intact. Steady gait. No ataxic movements. PSYCHIATRIC: Appropriate mood and affect. Normal interaction. Course Vital Signs Vital signs: Vital Signs Temperature 98.2 F 02/13/25 08:23 Pulse Rate 74 02/13/25 08:23 Respiratory Rate 18 02/13/25 08:23 Blood Pressure 138/85 02/13/25 08:23 Pulse Oximetry 97 02/13/25 08:23 Oxygen Delivery Room Air 02/13/25 08:23 Temperature 98.3 F 02/13/25 15:06 Pulse Rate 55 L 02/13/25 15:06 Respiratory Rate 14 02/13/25 15:06 Blood Pressure 103/73 02/13/25 15:06 Pulse Oximetry 99 02/13/25 15:06 Oxygen Delivery Room Air 02/13/25 08:23 MDM - Abdominal Pain MDM Narrative Medical decision making narrative: Patient reports having pain/burning throughout her epigastric/right upper quadrant for the past few months intermittently, had been improved with taking Pepcid, but has recurred since finishing the prescription. Vital signs are stable upon arrival. Patient in no acute distress. Cbc with blood cell count of 11.7. CMP is unremarkable. Normal LFTs and lipase. UA concerning for infection, positive nitrate, 21-50 WBC will start abx given amount of white blood cells. Sent for culture. CT scan of abdomen/pelvis was obtained and showing cholelithiasis with developing cholecystitis. Feel this is most consistent with patient's clinical picture. Patient reports pain more in right upper quadrant and worse with certain foods, particularly fried foods. Discussed this with patient. Discussed possibility of concurrent gastritis and will continue Pepcid. I discussed case with Dr. Rosa, general surgery, recommended low-fat diet and follow-up as outpatient in the office. Will also prescribe short course of pain and nausea medicine for home. CT scan of the abdomen pelvis also showed findings concerning for right ovarian vein thrombosis. Pelvic ultrasound was obtained and does not visualize right ovary. Discussed case with Dr. Aaron, OBGYN, will discuss with colleagues and call back regarding possible anticoagulation. Called back- ok to start anticoagulation, f/u as outpatient. Patient will be started on eliquis. Discussed lab and imaging findings extensively with patient. Discussed safe anticoagulation use, very strict return precautions. Advised to call General surgery and OBGYN office today to make follow-up appointments. Patient voiced understanding. All questions answered. Discharged in stable condition. Medical Records Attestation: I reviewed the patient's medical records. Lab Data Attestation: I reviewed the patient's lab results. 02/13/25 08:33 02/13/25 08:33 Labs: Lab Results 02/13/25 02/13/25 02/13/25 Range/Units 08:33 11:12 11:16 WBC 11.7 H (4.5-10.0) K/mm3 RBC 4.15 L (4.2-5.4) M/mm3 Hgb 12.6 (12.0-15.0) g/dL Hct 38.3 (37.0-47.0) % MCV 92.3 (80-100) fl MCH 30.4 (26-34) pg MCHC 32.9 (32-36) g/dl RDW 12.8 (11.5-14.5) % Plt Count 221 (150-375) k/mm3 MPV 12.1 H (7.4-10.4) fl Immature Gran % (Auto) 0.3 (0-0.5) % Neut % (Auto) 62.6 (45.5-73.1) % Lymph % (Auto) 26.7 (18.3-44.2) % [place] % (Auto) 8.3 (2.6-8.5) % Eos % (Auto) 1.8 (0-4.4) % Baso % (Auto) 0.3 (0.2-1.2) % Lymph # (Auto) 3.13 (0.9-3.2) K/mm3 [place] # (Auto) 1.0 H (0.1-0.6) K/mm3 Eos # (Auto) 0.2 (0-0.3) K/mm3 Baso # (Auto) 0.0 (0.0-0.1) K/mm3 Abs Immat Gran (auto) 0.04 H (0.00-0.031) K/mm3 Absolute Neuts (auto) 7.3 H (1.3-6.7) K/mm3 Absolute Nucleated RBC 0.000 (0.0-0.012) K/mm3 Nucleated RBC % 0.0 (0.0-0.2) % Sodium 136 L (137-145) mmol/L Potassium 3.8 (3.4-5.0) mmol/L Chloride 103 (98-107) mmol/L Carbon Dioxide 24 (22-30) mmol/L Anion Gap 9 (4-12) mmol/L BUN 10 D (7-17) mg/dL Creatinine 0.62 L (0.7-1.0) mg/dL Estim Creat Clear Calc 114 ml/min Estimated GFR > 60 (59 - ) Glucose 109 (65-110) mg/dL Calcium 9.5 (8.4-10.2) mg/dL Total Bilirubin 0.6 (0.2-1.3) mg/dL AST 29 (14-36) U/L ALT 28 (6-35) U/L Alkaline Phosphatase 101 (38-126) U/L Total Protein 8.4 H (6.3-8.2) g/dL Albumin 4.6 (3.5-5.1) g/dL Lipase 126 (23-300) U/L Urine Color Dark yellow (Yellow) Urine Appearance Turbid H (Clear) Urine pH 5.5 (5.0-9.0) Ur Specific [place] 1.040 H (1.001-1.035) Urine Protein 1+ H (Negative) mg/dL Urine Glucose (UA) Negative (Negative) mg/dL Urine Ketones Trace H (Negative) mg/dL Ur Blood (Man) Negative (Negative) Urine Nitrate Positive H (Negative) Urine Bilirubin Negative (Negative) Urine Urobilinogen 1.0 (<2.0) mg/dL Add Ur Microanalysis Reviewed Leukocyte Esterase Rfl 2+ H (Negative) JAMSHID/UL Urine RBC 0-2 (0-2) /hpf Urine WBC 21-50 H (0-3) /hpf Ur Squamous Epith Cells Moderate (Few) /hpf Urine Bacteria 4+ H /hpf Urine Casts 3-5 POC Urine HCG, Qual Negative (Negative) Imaging Data Attestation: I personally reviewed and interpreted this imaging study as follows: Radiologist's impression: ITS Impressions Abdomen/Pelvis CT 02/13/25 11:49 IMPRESSION: 1. Gallbladder findings suspicious for cholelithiasis and developing cholecystitis. 2. Acute appearing right ovarian venous thrombosis suspected. Pelvis Ultrasound 02/13/25 13:19 IMPRESSION: 1. Nonvisualization of the ovarian veins, nondiagnostic for evaluating venous patency. 2. Normal appearance of the left ovary and uterus. 3. Nonvisualization of the right ovary. COMMENT: Findings on CT examination are not definitive. If more definitive evaluation is indicated, dynamic phase contrast-enhanced CT with delayed venous phase or MR venography may provide additional beneficial information. 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 Cholelithiasis Qualifiers: Cholelithiasis location: gallbladder Cholecystitis presence: without cholecystitis Biliary obstruction: without biliary obstruction Qualified Code(s): K80.20 - Calculus of gallbladder without cholecystitis without obstruction UTI (urinary tract infection) Qualifiers: Urinary tract infection type: acute cystitis Hematuria presence: without hematuria Qualified Code(s): N30.00 - Acute cystitis without hematuria Patient Disposition: Home Condition: Stable Instructions: Antibiotic Form, Biliary Colic (ED), Urinary Tract Infection in Women (ED), Low Fat Diet (ED), Diet for Stomach Ulcers and Gastritis (ED), Deep Vein Thrombosis (ED), Blood Thinners (ED) Additional Instructions: You were diagnosed with gallstones today. You will need to follow-up with General surgery for further evaluation of your gallbladder. Call office to make appointment. Follow low-fat diet. You may continue Pepcid twice daily as needed for acid reflux/burning. Utilize Tylenol as needed for further pain. [place] as needed for more severe pain. Zofran as needed for nausea. Take antibiotics as prescribed for urinary tract infection. You are being diagnosed with a blood clot of your right ovarian vein. You are being started on blood thinners (Eliquis). It is important you do not missed any doses. Take as prescribed. Follow-up closely with OBGYN for further evaluation. Call office to make appointment. Eliquis puts you at risk for increased bleeding. It is recommended if you ever hit her head, to come into the ED to be evaluated and rule out intracranial bleeding. Additionally, return if you experience severe vaginal bleeding, blood in urine, blood in stools, dark black stools, persistent nosebleeds, etc Return to the ED if you experience worsening or severe pain, unable to keep down food or drink, passing out, feeling very dizzy, persistent fevers, or any other symptoms of concern. Patient Language: Arabic Prescriptions: New famotidine 20 mg tablet 20 mg PO BID Qty: 60 0RF hydrocodone-acetaminophen 5-325 mg tablet 1 tablet PO Q6H PRN (Reason: pain) Qty: 10 0RF ondansetron 4 mg tablet,disintegrating 4 mg PO Q8H PRN (Reason: nausea and vomiting) Qty: 15 0RF Eliquis DVT-PE Treat 30D Start 5 mg (74 tabs) tablets,dose pack See Rx Instructions .ROUTE .COMPLEX Qty: 74 0RF Rx Instructions: orally per package directions No Action amoxicillin 875 mg tablet 875 mg PO Q12H 10 Days Qty: 20 0RF diclofenac sodium 50 mg tablet,delayed release (DR/EC) 50 mg PO TID PRN (Reason: pain) Qty: 20 0RF famotidine [Pepcid] 20 mg tablet 20 mg PO BID 42 Days Qty: 84 0RF Follow-up/Referrals: Darien Aaron MD [Physician, [facility] PRESIDENT] Referral Note: Cecilio Gibson MD [Physician, General Surgery] Referral Note: GENERAL SURGERY PHYSICIAN,EMERGENCY MEDICINE PHYSICIAN ASSISTANT [Primary Care Provider, Internal Medicine] Time of Disposition: 14:39
--- NOTE | 2025-02-13 10:49 | PC.NURSE ---
pt made aware we need a urine sample. pt states she does not feel the urge to go at this time and is declining a straight cath. educated pt on importance of providing urine sample. states she will try when she feels like she can go. call light within reach.
[2025-02-13 10:50] VITALS: BP 100/61; PULSE 62; RESP 13; O2SAT 98
[2025-02-13 11:18] LABS: BEDSIDEPREGUCG Negative (Negative)
[2025-02-13 11:30] VITALS: BP 108/75; PULSE 54; RESP 16; O2SAT 99
[2025-02-13 11:31] LABS: Add Urine Microscopic? YES; Appearance Urine Turbid (Clear); Glucose Urine UA Negative (Negative); Leukocyte Esterase Ur 2+ LEU/UL (Negative); Need Manual Microscopic Reviewed; Nitrate Urine Positive (Negative); Specific Grav Ur 1.040 (1.001-1.035)
--- OUTSIDE RECORDS SUMMARY | 2025-02-13 11:41 | XMS_ITS | Data Portability ---
Author Organization [employer] , [facility] Address [address] [place] [address] Assessment No assessment recorded. Plan of Treatment Reminders Order Date Submit Date Provider Last Modified By Organization Details Last Modified Time Details Appointments None recorded. Lab urinalysis, dipstick 2024 025 [email or web address] [facility], [address] [place], [address], 5 17:18:01 culture, urine 2024 025 [employer] [facility], [address] [place], [address], 5 23:32:05 bacterial vaginosis + vaginitis panel, vaginal 2024 025 [employer], [address] [place], [address], 5 08:42:08 streptococc us group B, culture, unspecified specimen 2023 024 [employer] [facility], [address] [place], [address], 4 08:55:23 obstetric screen, serum or blood 2023 024 [employer], [address] [place], [address], 4 15:31:45 CBC w/ auto diff 2023 LEANNA [facility], [address] [place], [address], 4 10:45:11 HbA1c (hemoglobin A1c), blood 2023 024 [employer] [facility], [address] [facility], [place], [address], 4 03:35:03 Referral None recorded. Procedures None recorded. Surgeries None recorded. Imaging None recorded. Medication Orders Depo-Orthopaedic Nurse a 150 mg/mL intramuscul ar syringe 2024 025 [email or web address] [id number], [address] [place], [place], [id number], 5 10:45:17 Patient TargetsNo targets recorded. Patient Instructions Encounter Date Encounter Id Patient Instructions Last Modified By Organization Details Last Modified Time 01/26/2024 [id number] learning about screening for gestational diabetes [email or web address] Not available 01/26/2024 11:44:33 04/25/2024 [id number] Female Urinary Tract Infection (UTI): Care Instructions [email or web address] Not available 04/27/2024 10:45:18 Reason for Referral None Reported. Results Created Date Observation Date Name Description Value Unit Range Abnormal Flag Note LastModifiedBy Organization Detail LastModifiedTime 01/26/20 24 01/27/2024 HEMOG LOBIN A1C hemoglobin A1C 5.1 %_of_ total _HGB <5.7 normal For the purpo se of robert gomez for the prese nce of diabe alvarez: <5.7% Consi stent with the absen ce of diabe alvarez 5.7-6 .4% Consi stent with incre ased risk for diabe alvarez (pred iabet es) > or =6.5% Consi stent with diabe alvarez This assay resul t is consi stent with a decre ased risk of diabe alvarez. Curre ntly, no conse nsus exist diane khan use of hemog lobin A1c for diagn osis of diabe alvarez in child michael. Accor ding to Ameri can Diabe alvarez Assoc iatio n (ADA) guide lines , hemog lobin A1c <7.0% repre sents optim al contr ol in non-p regna nt diabe tic patie nts. Diffe rent ri cs may apply to speci fic patie nt popul ation s. Stand ards of Medic al Care in Diabe alvarez(A DA). Not Available [employer] [facility] [address] [place], [address], 01/27/2024 03:35:03 01/26/20 24 01/27/2024 CBC (INCL UDES DIFF/ PLT) WBC 8.0 thous and/u L 4.0 - 9.8 normal [place], [address], 01/27/2024 10:45:11 01/26/20 24 01/27/2024 CBC (INCL UDES DIFF/ PLT) RBC 3.2 jono on/uL 3.9 - 4.9 low [place], [address], 01/27/2024 10:45:11 01/26/20 24 01/27/2024 CBC (INCL UDES DIFF/ PLT) hemoglobin 9.9 g/dL 11.8 - 14.8 low [place], [address], 01/27/2024 10:45:11 01/26/20 24 01/27/2024 CBC (INCL UDES DIFF/ PLT) hematocrit 30.7 % 35.5 - 44.0 low [place], [address], 01/27/2024 10:45:11 01/26/20 24 01/27/2024 CBC (INCL UDES DIFF/ PLT) MCV 96.2 fL 82.0 - 99.0 normal [place], [address], 01/27/2024 10:45:11 01/26/20 24 01/27/2024 CBC (INCL UDES DIFF/ PLT) MCH 31.0 pg 27.2 - 32.6 normal Not Available [address], [address], 01/27/2024 10:45:11 01/26/20 24 01/27/2024 CBC (INCL UDES DIFF/ PLT) MCHC 32.2 g/dL 31.5 - 35.5 normal Not Available [address], [address], 01/27/2024 10:45:11 01/26/20 24 01/27/2024 CBC (INCL UDES DIFF/ PLT) RDW-CV 12.9 % 11.5 - 14.5 normal Not Available [address], [address], 01/27/2024 10:45:11 01/26/20 24 01/27/2024 CBC (INCL UDES DIFF/ PLT) platelet 129 thous and/u L 140 - 350 low Not Available [address], [address], 01/27/2024 10:45:11 01/26/20 24 01/27/2024 CBC (INCL UDES DIFF/ PLT) MPV 13.5 fL 9.3 - 12.4 high Not Available [address], [address], 01/27/2024 10:45:11 01/26/20 24 01/27/2024 CBC (INCL UDES DIFF/ PLT) absolute neutrophil 5.23 thous and/u L 1.90 - 7.00 normal Not Available [address], [address], 01/27/2024 10:45:11 01/26/20 24 01/27/2024 CBC (INCL UDES DIFF/ PLT) absolute lymphocyte 2.11 thous and/u L 0.70 - 4.50 normal Not Available [address], [address], 01/27/2024 10:45:11 01/26/20 24 01/27/2024 CBC (INCL UDES DIFF/ PLT) absolute monocyte 0.44 thous and/u L 0.10 - 1.30 normal Not Available [address], [address], 01/27/2024 10:45:11 01/26/20 24 01/27/2024 CBC (INCL UDES DIFF/ PLT) absolute eosinophil 0.02 thous and/u L <0.70 normal Not Available [address], [address], 01/27/2024 10:45:11 01/26/20 24 01/27/2024 CBC (INCL UDES DIFF/ PLT) absolute basophil 0.10 thous and/u L <0.20 normal Not Available [address], [address], 01/27/2024 10:45:11 01/26/20 24 01/27/2024 CBC (INCL UDES DIFF/ PLT) absolute immature granulocyte 0.08 thous and/u L <0.03 high Not Available [address], [address], 01/27/2024 10:45:11 01/26/20 24 01/27/2024 OB 28W (SYPH HIV 1/2 Ag/Ab Non-Re active non-re active normal Not Available [address], [address], 01/30/2024 15:31:45 01/26/20 24 01/27/2024 OB 28W (SYPH syphilis Ab Reacti ve non-re active abnormal Not Available [address], [address], 01/30/2024 15:31:45 01/26/20 24 01/30/2024 RPR (MEHNAZ TOR) W/REF L TITER RPR ser ql REACTI VE non-re active abnormal The RPR is a non-t repon emal- speci fic test; there fore, a trepo nemal -spec ific confi rmato ry test shoul d be perfo rmed unles s prior syphi lis infec tion has been docum ented for this patie nt. Not Available [facility] [address] [place], [address], 01/30/2024 17:10:42 01/26/20 24 01/30/2024 RPR TITER RPR ser-titr 1:1 high Not Available [facility] [address] [place], [address], 01/30/2024 17:10:43 02/09/20 24 02/12/2024 STREP TOCOC CUS, GROUP B CULTU RE streptococcu s, group B culture SEE NOTE STREP TOCOC CUS, GROUP B CULTU RE Micro Numbe r: [id number] Test Statu s: Final Speci men Sourc e: Vagin al/an orect al Speci men Quali ty: Adequ ate Resul t: No group B Strep tococ cus isola nathan Note per CDC guide lines optim al recov zelda is achie mich by swabb ing both the lower vagin a and rectu m (thro ugh the anal sphin cter) . Not Available [employer] [facility] [address] [place], [address], 02/12/2024 08:55:23 04/25/19 25 04/26/2024 CULTU RE, URINE , ROUTI NE culture, urine, routine SEE NOTE CULTU RE, URINE , ROUTI NE Micro Numbe r: [id number] Test Statu s: Final Speci men Sourc e: Urine Speci men Quali ty: Adequ ate Resul t: No Growt h Not Available [employer] [facility] [address] [place], [address], 04/26/2024 23:32:05 04/25/19 25 04/27/2024 VAGIN ITIS PLUS STD PANEL bacterial vaginosis BV POS negati ve abnormal Not Available [address], [address], 04/29/2024 08:42:08 04/25/19 25 04/27/2024 VAGIN ITIS PLUS STD PANEL emerald species C. spp neg negati ve normal Not Available [address], [address], 04/29/2024 08:42:08 04/25/19 25 04/27/2024 VAGIN ITIS PLUS STD PANEL emerald glabrata C. gla neg negati ve normal Not Available [address], [address], 04/29/2024 08:42:08 04/25/19 25 04/27/2024 VAGIN ITIS PLUS STD PANEL trichomonas vaginalis CV/TV TRICH neg negati ve normal Not Available [address], [address], 04/29/2024 08:42:08 04/25/19 25 04/27/2024 VAGIN ITIS PLUS STD PANEL chlamydia trachomatis CT neg negati ve normal This repor t is inten ded for us in clini den monit oring and manag ement of patie nts. It is not inten ded for use in medic al-le gal appli catio n. Not Available [address], [address], 04/29/2024 08:42:08 04/25/19 25 04/27/2024 VAGIN ITIS PLUS STD PANEL neisseria gonorrhoeae GC neg negati ve normal This repor t is inten ded for us in clini den monit oring and manag ement of patie nts. It is not inten ded for use in medic al-le gal appli catio n. Not Available [address], [address], 04/29/2024 08:42:08 04/25/19 25 04/25/2024 urina lysis , dipst ick Leukocytes Modera te Not Available [facility] [address], [place], [address], 04/25/2024 13:13:41 04/25/19 25 04/25/2024 urina lysis , dipst ick Nitrite negati ve Not Available [address], [place], [address], 04/25/2024 13:13:41 04/25/19 25 04/25/2024 urina lysis , dipst ick Urobilinogen .2 Not Available [address], [place], [address], 04/25/2024 13:13:41 04/25/19 25 04/25/2024 urina lysis , dipst ick Protein Trace Not Available [address], [place], [address], 04/25/2024 13:13:41 04/25/19 25 04/25/2024 urina lysis , dipst ick pH 5.0 Not Available [address], [place], [address], 04/25/2024 13:13:41 04/25/19 25 04/25/2024 urina lysis , dipst ick Blood Negati ve Not Available [address], [place], [address], 04/25/2024 13:13:41 04/25/19 25 04/25/2024 urina lysis , dipst ick Specific [place] 1.025 Not Available [facility] [address], [place], [address], 04/25/2024 13:13:41 04/25/19 25 04/25/2024 urina lysis , dipst ick Ketone Negati ve Not Available [address], [place], [address], 04/25/2024 13:13:41 04/25/19 25 04/25/2024 urina lysis , dipst ick Bilirubin Negati ve Not Available [address], [place], [address], 04/25/2024 13:13:41 04/25/19 25 04/25/2024 urina lysis , dipst ick Glucose Negati ve Not Available [address], [address], 04/25/2024 13:13:41 04/25/19 25 04/25/2024 urina lysis , dipst ick Appearance Slight ly Cloudy Not Available [address], [place], [address], 04/25/2024 13:13:41 04/25/19 25 04/25/2024 urina lysis , dipst ick Color Yellow Not Available [address], [address], 04/25/2024 13:13:41 01/17/20 24 01/17/2024 US, obste tric, follo w-up No observ ation record ed. [email or web address] [facility] [address], [place], [address], 01/17/2024 17:09:23 Result Notes None recorded. Problems Name Problem SNOMED Code Status Onset Date Resolution Date Notes Provider Name and Address Organization Details Recorded Time Past pregnanc y history of section 646576096 Completed KENISHA GRIMES, SATYA [address] [facility], [place], [address], [facility] IV 18:04:29 Family history of gastrosc hisis [id number] 23617 Completed G2 with Gastrosc hisis. with twin #2 demise KENISHA GRIMES, SATYA [address] [place], [address], [facility] [employer] IV 4 18:05:30 HELLP syndrome 07486560 Completed x3 KENISHA GRIMES, SATYA [address] [place] [address], [address], [facility] [employer] IV 4 18:06:37 Past pregnanc y history of gestatio nal diabetes mellitus 730225091 Completed x2 KENISHA GRIMES, SATYA [address] [place] [address], [address], [facility] [employer] [facility] IV 4 18:07:34 History of syphilis 28120800786 10044 Completed @ age 17, s/p treatmen t per patient Ingrid Serrato MD [address] [place] [address], [address], [facility] [place] [facility] IV 4 14:32:58 Pregnanc y 14887278 Completed 202304/27/2024 ABEL NAJERA [address] [place] [address], [address], [facility] [place] [facility] IV 5 10:28:37 Iron deficien cy anemia secondar y to inadequa te dietary iron intake 785610754 Completed 2023 Ingrid Serrato MD [address] [place] [address], [address], [facility] [place] [facility] IV 4 07:19:52 Problem Notes None recorded. Procedures Surgical History Date Name Laterality Status Provider Name and Address Organization Details Recorded Time 5 Depo Provera Injection completed Jannet Betancourt PR [employer] [facility] IV 05/06/2024 18:03:20 4 Date of Last Pap Smear completed Mignon [employer] [facility] IV 12/18/2023 16:36:23 C [facility] [place] [facility] IV 12/18/2023 17:36:48 Imaging Results None recorded. Procedure Notes None recorded. Medical Equipment None Reported. Allergies Allergen ID Allergen Name Allergen Category Reaction Reaction Severity Criticality Documentation Date Start Date Code Code System Note Provider Name and Address Organization Details Recorded Time 479738 amoxicill in medicatio n Not available Not available Not available 12/18/2023 723 RxNorm Mignon hernandez, [facility] IV 4 16:36:22 567445 Substance with sulfonami de structure and antibacte rial mechanism of action (substanc e) medicatio n Not available Not available Not available 04/25/2024 05209 8003 SNOMED VERONICA DOAN, [facility] [address] [place], [address], [facility] [employer] IV 5 13:35:53 380861 Macrobid medicatio n Not available Not available Not available 04/25/2024 86278 1 RxNorm VERONICA DOAN [place] [address] [place], [address], [facility] IV 5 13:36:55 Medications Name Sig Start Date Stop Date Status Note LastModified by Organization Details LastModified Time hydrocodone 5 mg-acetamin ophen 325 mg tablet 04/25 completed Not Available Not Available Not Available metronidazo le 500 mg tablet TAKE 1 TABLET BY MOUTH EVERY 12 HOURS FOR 7 DAYS active Not Available Not Available No t Available amoxicillin 875 mg tablet TAKE 1 TABLET BY MOUTH EVERY 12 HOURS FOR 10 DAYS active Not Available Not Available No t Available famotidine 20 mg tablet TAKE 1 TABLET BY MOUTH TWICE DAILY FOR 6 WEEKS active Not Available Not Available No t Available diclofenac sodium 50 mg tablet,vivien yed release TAKE 1 TABLET BY MOUTH THREE TIMES DAILY NEEDED FOR PAIN active Not Available Not Available No t Available ibuprofen 600 mg tablet 04/25 completed Not Available Not Available Not Available ondansetron 4 mg disintegrat ing tablet DISSOLVE 1 TABLET ON THE TONGUE EVERY 6 HOURS NEEDED FOR NAUSEA OR VOMITING 12/17 completed Not Available Not Available Not Available medroxyprog esterone 150 mg/mL intramuscul ar syringe ADMINISTE R 1 ML IN THE MUSCLE EVERY 3 MONTHS active Not Available Not Available No t Available FeroSul 325 mg (65 mg iron) tablet TAKE 1 TABLET BY MOUTH EVERY DAY 02/01 completed Not Available Not Available Not Available Adult Aspirin Regimen 81 mg tablet,vivien yed release Take 1 tablet every day by oral route. 02/08 completed Not Available Not Available Not Available Vitals Date Recorded Body height Body mass index (BMI) Body weight Systolic And Diastolic Provider Name and Address Organization Details Last Updated DateTime 04/25/2024 165.1 cm 25 kg/m2 49676.86 g 110/68 mm[Hg] Alexialiana Chacko [facility] IV 04/25/2024 13:06:40 Date Recorded Body height Body mass index (BMI) Body weight Systolic And Diastolic Provider Name and Address Organization Details Last Updated DateTime 01/26/2024 165.1 cm 25.5 kg/m2 03575.632 61 g 120/70 mm[Hg] Jody Mace [facility] 01/26/2024 11:29:41 Date Recorded Body height Body mass index (BMI) Body weight Systolic And Diastolic Provider Name and Address Organization Details Last Updated DateTime 02/02/2024 165.1 cm 25.9 kg/m2 21359.69 g 110/65 mm[Hg] Mayuri Jett [facility] IV 02/02/2024 11:29:17 Date Recorded Body height Body weight Body temperature Systolic And Diastolic Provider Name and Address Organization Details Last Updated DateTime 02/09/2024 165.1 cm 18826.69 1246 g 97.5 [degF] 108/64 mm[Hg] Meme Kendall [facility] 02/09/2024 15:12:19 Social History Question Answer Notes LastModified by Organizat ion Details LastModified Time Tobacco Smoking Status Current Some Day Smoker Mignon hernandez, [facility] 12/18/2023 16:36:23 If You Are , What Was Your Level Of Alcohol Consumption Prior To ? None Information not available 12/18/2023 Are You Blind Or Do You Have Difficulty Seeing? No Information not available 12/18/2023 Are You Deaf Or Do You Have Serious Difficulty Hearing? No Information not available 12/18/2023 What Type Of Diet Are You Following? REGULAR Information not available 12/18/2023 How Many Children Do You Have? 3 Information not available 12/18/2023 What Is Your Relationship Status? Single Information not available 12/18/2023 Are You Sexually Active? Yes Information not available 12/18/2023 At What Age Did You Start Smoking Tobacco? 19 Information not available 12/18/2023 How Much Tobacco Do You Smoke? 1 PPW Information not available 12/18/2023 What Types Of Sporting Activities Do You Participate In? Taking Walks Everyday For At Least 30 Mins Information not available 12/18/2023 How Many Years Have You Smoked Tobacco? 4 Information not available 12/18/2023 Sex: Unknown Functional Status Question Answer Note LastModified by Organizat ion Details LastModified Time Do you use any illicit or recreational drugs? No Information not available 12/18/2023 Do you or have you ever used any other forms of tobacco or nicotine? No [email or web address] Information not available 02/09/2024 What is your level of alcohol consumption? None Information not available 12/18/2023 Are you currently employed? No Information not available 12/18/2023 What is your exercise level? None Information not available 12/18/2023 Mental Status None recorded. Family History Relationship Description Onset Age of this Age Resolved Age Notes LastModified by Organization Details LastModified Time Mother Hypertensive disorder Not available 2023 16:36:23 Father Hypercholest erolemia Not available 2023 16:36:23 Father Heart disease Not available 2023 16:36:23 Medical History Condition Response High Blood Pressure Y Gynecological History Statement/Question Response Flow Moderate Date of last HPV 05/23/2023 Date of LMP 05/10/2023 HPV Vaccine N Duration of Flow (days) 4 Most Recent Mammogram Current Control Method Depo-Orthopaedic Nurse a Age at Menarche 13 Date of Last Colonoscopy Most Recent Bone Density Frequency of Cycle (Q days) 26 Date of Last Pap Smear 05/23/2023 Obstetrics History GPAL:G 3 P 2 1 0 4 Type Value Full Term 2 Spontaneous 0 Premature 1 Living 4 Ectopics 0 Total 3 Past Encounters Encounter ID Performer Location Encounter Start Date Encounter Closed Date Diagnosis/Indication Diagnosis SNOMED-CT Code Diagnosis ICD10 Code Diagnosis IMO Codes Diagnosis Note [id number] KENISHA GRIMESSATYA [facility] [address] [place] [address] 12/18/2023 16:24:20 12/19/2023 16:53:02 No care 929182895 O09.32 69494499 High risk 4720 0007 O09.90 [id number] Pt comes in today for a New/First OB visit.Gest ation: 29w5 dEDD: 02/29/2024 -- PMH: No PMH-- Medication s: LDASA-- Previous OB History: delivery @34 wks in G2, x3 GDM x2 HELLP x3-- Mom/Sister s with hx of Pre-Eclamp lea: denies-- History of Genital HSV:denies -- Genetic Questions in OB Episode Done -- Low dose Aspirin : 81 mg/day prophylaxi s is recommende d in women at high risk of preeclamps ia. Recommende d to be initiated at 12 weeks gestation. Risk Factors:(o ne present)Pr evious with Preeclamps ia or GHTN, Multifetal , CHTN, Diabetes, Chronic kidney disease, Autoimmune disease(tw o present) Primiparit y (or interval of >10 years between pregnancie s), Obesity (BMI >30), Mother or sister with preeclamps ia, Older than 35, Race, Previous with adverse outcome -- First Trimester Diabetes Screening: Recommende d. Screened with: hemoglobin A1CBMI >25 with one or more Risk Factors:-P hysical inactivity -PCOS-Firs t-degree Relative with DM-Suspect ed insulin resistance -GDM in prior OR previously given to >9lb baby-High risk ethnicity( ,[place], , [place] or [place] (BMI >23), )- Elevated cholestero l levels (HDL <35, Triglyceri de >250)-Elev ated HbA1c (>5.7%)-Ca rdiovascul ar disease-Hy pertension POC-- NOB labs done today-- Accepts Declines UNITY-- PAP Up to Date-- Low dose aspirin recommende d-- Pre-Pregna ncy BMI:-- RTC 4 weeks Guide: Given and reviewed. Toxoplasmo sis precaution s reviewed. Reviewed office visit schedule during . Reviewed Quickening and normal FHTs.Histo ry of PTD at 34 wks G2 with gastroschi sis- [id number] LIEN SORTO DO [facility] [address] [place] [address] 01/17/2024 14:12:32 01/18/2024 11:01:17 Fundal height high for dates 316490271 O26.849 740283 Gestation period, 33 weeks 61225230 Z3A.33 9625285 Normal 4121266 2 Z34.83 5991014 screening 2437 10755 Z36.89 [id number] Ingrid Serrato MD [facility] [address] [place] [address] 01/26/2024 11:09:18 01/26/2024 13:29:28 Gestation period, 35 weeks 08454671 Z3A.35 3701912 Normal 3986280 2 Z34.83 4776012 screening 2437 [address]650 Z36.89 0527590691 Pain in female pelvis 42 1087958 O26.899 R10.2 015594 [id number] Ingrid Serrato MD [facility] [address] [place] [address] 02/02/2024 11:10:53 02/02/2024 14:43:18 Normal 66907510 Z34.83 2736774 Gestation period, 36 weeks 85536842 Z3A.36 9866048 [id number] KENISHA GRIMES NP [facility] [address] [place] [address] 02/09/2024 14:37:19 02/12/2024 14:56:39 Gestation period, 37 weeks 67647326 Z3A.37 7164396 High risk 4720 0007 O09.90 [id number] Pt is here for a LISA appointmen t. She is taking vitamins. She has no complaints or questions. Reports feeling movement. Denies vaginal bleeding, abdominal cramps, N/V, contractio ns, or LOF. Denies headache, vision changes, swelling of hands or face, and epigastric pain. Discussed Labor and precaution s given. [id number] VERONICA DOANABEL [facility] [address] [place] [address] 04/25/2024 12:43:35 04/29/2024 11:16:24 Urinary tract infectious disease 49859805 N39.0 Acute vaginitis 25359058 N76.0 - vaginitis/ STI swab sent, will treat per culture.- Reviewed vulvar hygiene: avoid tight or moist clothing, soaps, Vagisil and other wipes, cotton underwear only, and sleep without unscented detergent- Discussed triggering factors (wet gym cloths, lotion, sensitivit y to partner, sensitive latex).- Followup to be scheduled after results for further management . Finding of sensation of urinary bladder 691226773 R39.14 0454888 UA dip pos for Leukocytes , Neg Nitrites, Neg Blood- will send for culture. Will treat based upon culture results. Neg CVA tenderness , endorses some low back pain but states this is not new for her. Uses contraception 48367 004 Z30.42 4999860 Pt educated on risks Vs benefits of use, reviewed ACHES symptoms and blackbox warning. Importance of following dosing schedule as directed reinforced to pt, and on use of condoms or abstinence if dosing schedule is interrupte d. Pt advised no appt necessary to receive injection. Pt to bring Rx with her from pharmacy for administra tion. Pt encouraged to consider Ca+ and Vit D supplement ation with use. Refills sent. Plan to F/U when next injection is due Apr 30-May 14. Magy zimmer thirty minutes spent with patient in consultati on (>50% face-to-fa ce). Patient labs and notes were reviewed. Patient questions were answered. Additional patient care was coordinate lesly [id number] CIERRA MICHELLE [facility] [address] [place] [address] 05/06/2024 13:46:12 05/07/2024 14:22:31 Surveillance of depot contraception 094252063 Z30.42 947621 Health Concerns Section Related Observation LastModified by Organization Detai ls LastModified Time None Recorded Concern Status LastModified by Organization Details LastModified Time None Recorded Advance Directives Directive None Recorded Payers Insurance Date Sequence Insurance Name Policy Number Policy Terry Covered Member ID Terry Member ID Guarantor Name 02/03/2025 2 [facility] ON OR AFTER 09/24/20 (MEDICAID REPLACEMENT - HMO) Bekah Michaelg [id number] Bekah Robbins 02/03/2025 1 [place] [facility] Colin Michaelg [id number] Bekah Michaelg 02/03/2025 1 [facility] ON OR AFTER 09/24/20 (MEDICAID REPLACEMENT - HMO) Bekah Hamblen [id number] Bekah Michaelg Notes Date Note Type Note Provider Name and Address Organization Details Recorded Time 4 text/html Patient is here today for a routine OB visit. She is currently at 35 weeks gestation. vitamins: no She has felt movement. She denies any complaints of the presence of vaginal bleed, leaking fluid, abdominal cramps, nausea, vomiting, headache or visual disturbances. Desires something for heartburn. Ingrid Serrato MD [address] [place] [address], [phone], [facility] 01/26/2024 11:44:57 4 text/html Patient is here today for a routine OB visit. She is currently at 36.1 weeks gestation. vitamins: no She has felt movement. She denies any complaints of the presence of vaginal bleed, leaking fluid, abdominal cramps, nausea, vomiting, headache or visual disturbances.Pt stop taken iron and stated it makes her sick. Ingrid Serrato MD [address] [place] [address], [phone], [facility] 02/02/2024 14:33:24 4 text/html [facility] OB Return VisitReported by PatientObstetrical CareFor symptoms, patient reportscontractionsbut reportsfetal movement normal,normal vaginal discharge/no rom, andpelvic pressure. For gastrointestinal, patient reportsno gastrointestinal symptoms. For cardiovascular, patient reportsno cardiovascular symptoms. For musculoskeletal, patient reportsno joint pain. For neurologic, patient reportsno headacheandno visual changes. For breast, patient reportsplans to bottle feed. For social/psychiatric issues, patient reportsno reported concerns with support system,no anxiety, andno symptoms of depression. KENISHA GRIMES NP [address] [place], [phone], [facility] [employer] [facility] 02/09/2024 22:55:36 5 text/html ROS as noted in the HPI Bekah is here today for UTI evalutation. Pt states she has feels like she has to push to get the rest of her urine to come out. Endorses vaginal irritation requests vaginitis swab and STD testing. Pt had section on 2023 at [facility], and has not been seen since delivering. ABEL NAJERA [address] [place], [phone], [facility] [employer] [facility] 04/27/2024 10:53:19 OBGyn Episode Ob Episode Information Episode Created Date Number of Fetuses Patient Bloodtype Patient rh Status Prepregnancy Weight lbs Domestic Partner Domestic Partner Phone Father Name Director Fundraising Status 12/18/19 24 1 O Positive CLOSED Fetus Data First Name Last Name Admitted to NICU Weight (g) Sex Living Outcome Pediatric Complications Fetus ID Race Codes Race Delivery Type Hansgerald lla false [phone] F true Full Term [id number] Repeat Problems Problem Notes Problem Name Start Date End Date Resolution Snomed Code Not e Past history of gestational diabetes mellitus 775029617 x2 History of syphilis 5838395915 [id number] @ age 17, s/p treatment per patient Past history of section 262111631 Iron deficiency anemia secondary to inadequate dietary iron intake 01/28/2024 [id number] Family history of gastroschisis [id number] G2 with Gastroschisis. with twin #2 demise HELLP syndrome [id number] x3 Karlos Calculation Initial Karlos Date Initial Exam Date Initial Exam Provider Initial Ultrasound Date Last Menstrual Period Date Ultra Sound Weeks Gestation 02/29/2024 12/18/2023 0 Eighteen To Twenty Week Karlos Update Ultra Sound Date Fundal Height At Umbil Quickening Date Ultra Sound Latest Weeks Gestation Final Karlos Confirmed By Final Karlos Confirmed Date Final Karlos Date Ultra Sound Latest Days Gestation 0 0 Pre- Flowsheet Flowsheet Date 12/18/2023 Almeida Score Blood Edema Fundus Height Fundus Units Glucose Ketones Leukocytes Nitrite Labor Signs Protein Cervic Dilation Cervic Effacement Cervic Station none none Type Weight in lbs Pre/Post Dialysis Refused With clothes 154.203526328709 BP Diastolic BP Location Tested BP Systolic BP Type 76 L arm 120 sitting Fetus Heart Rate Present A 154 Present Fetus Movement A Yes Comments MAR from [facility]. History listed in problems. Anatomy incomplete today EFW 20.6%tile, BPD 0.3% HC 0.6%, AC 48% FL 18.1%. discussed release of records consent. patient to RTC next week for gtt and 3T labs. Flowsheet Date 01/17/2024 Almeida Score Blood Edema Fundus Height Fundus Units Glucose Ketones Leukocytes Nitrite Labor Signs Protein Cervic Dilation Cervic Effacement Cervic Station none trace Type Weight in lbs Pre/Post Dialysis Refused Weight 151.134620176176 BP Diastolic BP Location Tested BP Systolic BP Type 60 112 Fetus Heart Rate Present A 151 Fetus Movement A Yes Comments growth: 85% w/ AC 98% has no t completed 1h GCTh/o x3, discussed tubal at time of this and how increased numbers of put her and 's life at risk due to increased risk of uterine ruptureplans to complete 1h GCT on monday Flowsheet Date 01/26/2024 Almeida Score Blood Edema Fundus Height Fundus Units Glucose Ketones Leukocytes Nitrite Labor Signs Protein Cervic Dilation Cervic Effacement Cervic Station none 33 cm none none neg Type Weight in lbs Pre/Post Dialysis Refused 153.936696037562 BP Diastolic BP Location Tested BP Systolic BP Type 70 120 Fetus Heart Rate Present A 135 Fetus Movement A Yes Comments No complaints. 3T labs and H bA1C (patient ate just prior to arrival). Plan repeat c/s @ 39 weeks. Patient declines tubal ligation. Flowsheet Date 02/02/2024 Almeida Score Blood Edema Fundus Height Fundus Units Glucose Ketones Leukocytes Nitrite Labor Signs Protein Cervic Dilation Cervic Effacement Cervic Station none 34 cm none none 1+ Type Weight in lbs Pre/Post Dialysis Refused With clothes 155.493358811673 BP Diastolic BP Location Tested BP Systolic BP Type 65 110 sitting Fetus Heart Rate Present A 135 Fetus Movement A Yes Comments No complaints. Patient has h istory of Syphilis at 17 y/o s/p treatment per patient. GBS needs to be collected next week! Flowsheet Date 02/09/2024 Almeida Score Blood Edema Fundus Height Fundus Units Glucose Ketones Leukocytes Nitrite Labor Signs Protein Cervic Dilation Cervic Effacement Cervic Station none none 2+ Type Weight in lbs Pre/Post Dialysis Refused With clothes 155.656832439364 BP Diastolic BP Location Tested BP Systolic BP Type 64 108 Fetus Heart Rate Present A 148 Present Fetus Movement A Yes Comments Reports intermittant contrac tions. patient states she does not drink much water. labor precautions reviewed. RTC in 1 wk Flowsheet Date 04/25/2024 Almeida Score Blood Edema Fundus Height Fundus Units Glucose Ketones Leukocytes Nitrite Labor Signs Protein Cervic Dilation Cervic Effacement Cervic Station Type Weight in lbs Pre/Post Dialysis Refused With clothes 150.026309685782 BP Diastolic BP Location Tested BP Systolic BP Type 68 110 sitting Fetus Heart Rate Present Fetus Movement Comments Menstrual History Last Menstrual Date Menses Monthly On Bcp Conception Prior Menses Frequency Hcg Plus Date Menarche Onset Age Delivery Information Delivery Date Delivery Type Labor Anesthesia Weeks Gestation Incision Type Labor Labor Length Hrs Delivered By Post Complications Tubal Sterilization Discharge Date Comments 4 Regional-Sp inal 37.4 Low Transvers e Discharge Information Feeding Method Contraceptive Method Maternal HG B and HCT Levels
--- OUTSIDE RECORDS SUMMARY | 2025-02-13 11:41 | XMS_ITS | Data Portability ---
Author Organization [facility] [place] Address [address] [place] [address] Assessment Encounter Date Assessment Date Assessment LastModified by Organization Details LastModified Time 07/21/2023 07/21/2023 Patient is ___weeks . Discussed plan. Not available 07/21/2023 10:52:12 Plan of Treatment Reminders Order Date Submit Date Provider Last Modified By Organization Details Last Modified Time Details Appointments None recorded. Lab drug screen, [email or web address], [address], [address], [place], [address], 4 17:34:40 pap, IG + reflex HPV if ASC-U - if hpv positive run subtyping 16, 18/45 add gc/chlam/tr ich 2023 024 [facility] (Lab), [address], [place], [address], 4 13:23:55 test, urine 2023 024 [email or web address] [address] [place], [address], [place], [address], 4 10:42:28 hbcab (hepatitis B core Ab) igm, serum 2022 023 [facility] (Lab), [address], [place], [address], 3 13:30:35 HBsAg (hepatitis B surface Ag), serum 2022 023 [facility] (Lab), [address] [facility], [place], [address], 3 13:30:33 hepatitis C virus Ab, serum 2022 023 [facility] (Lab), [address] [facility], [place], [address], 3 13:30:34 unlisted lab - HIV 1/2 antigen/ant ibody, reflex confirmatio n 2022 023 [facility] (Lab), [address] [facility], [place], [address], 3 13:30:33 RPR (rapid plasma reagin), serum 2022 023 [facility] (Lab), [address] [facility], [place], [address], 3 13:30:34 Referral None recorded. Procedures None recorded. Surgeries None recorded. Imaging US, obstetric, nuchal translucenc y 2023 024 [email or web address] [place], [address], [place], [address], 4 19:07:50 US, obstetric, transvagina l 2023 024 [email or web address] [place], [address], [place], [address], 4 10:37:18 Medication Orders None recorded. Patient TargetsNo targets recorded. Patient InstructionsNo instructions recorded. Reason for Referral None Reported. Results Created Date Observation Date Name Description Value Unit Range Abnormal Flag Note LastModifiedBy Organization Detail LastModifiedTime 08/15/19 24 08/15/2023 [UNIT Y] LETTY ER SCREMaylin Blount sickle cell disease/beta -thalassemia /hemoglobino pathies carrier screen NEGATI VE normal Not Available [facility] [address], [place], [address], 08/15/2023 18:10:35 08/15/19 24 08/15/2023 [UNIT Y] LETTY NEVAEH MARY LOUMaylin Blount alpha-thalas semia carrier screen NEGATI VE normal Not Available [facility] [address], [place], [address], 08/15/2023 18:10:35 08/15/19 24 08/15/2023 [UNIT Y] LETTY BARRETOMaylin Blount cystic fibrosis carrier screen NEGATI VE normal Not Available [facility] [address], [place], [address], 08/15/2023 18:10:35 08/15/19 24 08/15/2023 [UNIT Y] LETTY BARRETOMaylin Blount spinal muscular atrophy carrier screen NEGATI VE 2 SMN1 copies , SNP not presen t normal Not Available [facility] [address], [place], [address], 08/15/2023 18:10:35 08/15/19 24 08/15/2023 [UNIT Y] LETTY ORTA Hussein for detailed report, see pdf See PDF normal Not Available [facility] [address], [place], [address], 08/15/2023 18:10:35 08/16/19 24 08/16/2023 [UNIT Y] ANEUP LOIDY NIPT fraction 6.5% normal Not Available [facility] [address], [place], [address], 08/16/2023 00:33:27 08/16/19 24 08/16/2023 [UNIT Y] ANEUP LOIDY NIPT sex chromosome aneuploidy NOT DETECT ED normal Not Available [facility] [address], [place], [address], 08/16/2023 00:33:27 08/16/19 24 08/16/2023 [UNIT Y] ANEUP LOIDY NIPT monosomy X LOW RISK <1 in 10,000 normal Not Available [facility] [address], [place], [address], 08/16/2023 00:33:27 08/16/19 24 08/16/2023 [UNIT Y] ANEUP LOIDY NIPT trisomy 13 LOW RISK <1 in 10,000 normal Not Available [facility] [address], [place], [address], 08/16/2023 00:33:27 08/16/19 24 08/16/2023 [UNIT Y] ANEUP LOIDY NIPT trisomy 18 LOW RISK <1 in 10,000 normal Not Available [facility] [address], [place], [address], 08/16/2023 00:33:27 08/16/19 24 08/16/2023 [UNIT Y] ANEUP LOIDY NIPT trisomy 21 LOW RISK <1 in 10,000 normal Not Available [facility] [address], [place], [address], 08/16/2023 00:33:27 08/16/19 24 08/16/2023 [UNIT Y] ANEUP LOIDY NIPT sex FEMALE normal Not Available [facility] [address], [place], [address], 08/16/2023 00:33:27 08/16/19 24 08/16/2023 [UNIT Y] ANEUP LOIDY NIPT gestation SINGLE TON normal Not Available [facility] [address], [place], [address], 08/16/2023 00:33:27 08/16/19 24 08/16/2023 [UNIT Y] ANEUP LOIDY NIPT for detailed report, see pdf See PDF normal Not Available [facility] [address], [place], [address], 08/16/2023 00:33:27 12/13/1912/12/2022 HIV 1/2 ANTIG EN/AN TIBOD Y, REFLE X CONFI RMATI ON HIV antigen/anti body Nonrea ctive nonrea ctive HIV-1 antig en and HIV-1 /HIV- 2 antib odies were not detec nathan. No labor atory evide nce of HIV infec tion. Not Available [facility] (Lab) [address], [place], [address], 12/14/2022 13:30:33 12/13/19 23 12/12/2022 HEPAT ITIS B SURFA CE ANTIG EN hepatitis B surface antigen Non-re active non-re active This assay was perfo rmed using [employer] reage nts and test kits. Value s obtai priyank with other assay metho ds or kits canno t be used inter willams eably . Not Available [facility] (Lab) [address], [place], [address], 12/14/2022 13:30:33 12/13/19 23 12/12/2022 HEPAT ITIS C ANTIB JILLIAN SCREE N, REFLE X TO CONFI RMATI ON hepatitis C antibody Non-re active non-re active Antib odies to HCV Not Detec nathan, does not exclu de the possi bilit y of expos ure to HCV. Not Available [facility] (Lab) [address], [place], [address], 12/14/2022 13:30:34 12/13/19 23 12/12/2022 RPR SCREE N/REF KAYLIE TITER /FTA RPR screen Nonrea ctive nonrea ctive Not Available [facility] (Lab) [address], [place], [address], 12/14/2022 13:30:34 12/13/19 23 12/12/2022 HEPAT ITIS B CORE, IGM hepatitis B core Ab, IgM CANCEL LED Reord ered Not Available [facility] (Lab) [address], [place], [address], 12/14/2022 13:30:35 12/13/19 23 12/12/2022 [facility], REFER RED RESUL TS test results See Note HEPAT ITIS B CORE ANTIB JILLIAN (IGM) TEST NAME RESUL T FLAG UNITS REF RANGE ===== ==== ===== = ==== ===== ===== ==== HBV core IgM SerPl Ql IA NON-R EACTI VE NON-R EACTI VE For addit ional infor chace hopkins e refer to http: //rick blount.que stdia gnost ics.c om/fa q/FAQ (This link is being provi ded for infor cookie nal/ educa vladislav l purpo ses only. ) Test Perfo rmed at: [facility] [address] [place] [address] Antho ny V Mckenzie s Perfo rming Organ izati on Infor cookie n: Site ID: CB Name: [facility] Addre ss: [address] [place] [address] Dire tor: Antho ny V Mckenzie s Not Available [facility] (Lab) [address], [place], [address], 12/15/2022 04:19:29 07/21/19 24 07/21/2023 IMAGE GUIDE D PAP, REFLE X HPV IF ASCUS ONLY image guided Pap, reflex HPV ASCUS only SEE RESULT S BELOW CASE REPOR T: Cytol ogy Gynec ologi murray Repor t Case: [id number] Autho bertha g Provi anton: Margaret Santos NP Colle cted: 07/20 1505 Order ing Locat ion: [place] [facility] Recei mich: 07/23 0855 First Scree n: Mily Bazzi, CT Rescr een: Richard Huddleston Speci men: Shalonda gomez Pap - Image d, Cervi x STATE MENT OF ADEQU ACY: UNSAT ISFAC TORY SPECI MEN FINAL DIAGN OSIS: Unsat isfac tory for evalu ation . Inade quate squam ous epith elial compo nent for diagn osis. Elect julián gonzalez genie d by Richard Huddleston on 024 at 12:19 PM ----- ----- ----- ----- ----- ----- ----- ----- ----- ----- ----- ----- ----- ----- ----- ----- ----- ---- AVTAR NT: Note: Slide scremaylin priyank manua lly due to rejec tion by Thinp rep Imagi ng Syste m [facility] INFOR MATIO N: Menst rual Statu s: LMP (if appli cable ): Clini murray Histo ry/Pr eviou s Pap: Type of Neopl roger (if appli cable ): Signi fican t [facility] Findi ngs: Other Histo ry: Hormo sung (if appli cable ): Not Available [facility] (Lab) [address], [place], [address], 07/28/2023 13:23:55 07/21/19 24 07/21/2023 CT/GC (ABEL) , THINP REP VIAL chlamydia trachomatis, PCR Negati ve negati ve Not Available [facility] (Lab) [address], [place], [address], 07/28/2023 13:23:56 07/21/19 24 07/21/2023 CT/GC (ABEL) , THINP REP VIAL neisseria gonorrhoeae, PCR Negati ve negati ve Not Available [facility] (Lab) [address], [place], [address], 07/28/2023 13:23:56 07/21/19 24 07/21/2023 TRICH OMONA S VAGIN EBER (RRNA ) trichomonas vaginalis ribosomal RNA (rrna) Negati ve negati ve Not Available [facility] (Lab) [address] [facility], [place], [address], 07/28/2023 13:23:56 07/21/19 24 07/21/2023 pregn wendie test, urine HCG positi ve Not Available [place] [address], [place], [address], 07/21/2023 10:42:16 08/09/19 24 08/09/2023 CBC W/DIF F WBC 12.1 10'3/ uL 3.5-10 .5 high Not Available [facility] (Lab) [address] [facility], [place], [address], 08/10/2023 20:12:54 08/09/19 24 08/09/2023 CBC W/DIF F RBC 3.79 10'6/ uL (based on docume nted legal sex) 3.80-5 .20 low Not Available [facility] (Lab) [address] [facility], [place], [address], 08/10/2023 20:12:54 08/09/19 24 08/09/2023 CBC W/DIF F HGB 12.0 g/dL (based on docume nted legal sex) 11.6-1 5.4 Not Available [facility] (Lab) [address] [facility], [place], [address], 08/10/2023 20:12:54 08/09/19 24 08/09/2023 CBC W/DIF F HCT 37.2 % (based on docume nted legal sex) 34.0-4 5.0 Not Available [facility] (Lab) [address] [facility], [place], [address], 08/10/2023 20:12:54 08/09/19 24 08/09/2023 CBC W/DIF F MCV 98.2 fL 80.0-9 9.0 Not Available [facility] (Lab) [address], [place], [address], 08/10/2023 20:12:54 08/09/19 24 08/09/2023 CBC W/DIF F MCH 31.7 pg 27.0-3 4.0 Not Available [facility] (Lab) [address], [place], [address], 08/10/2023 20:12:54 08/09/19 24 08/09/2023 CBC W/DIF F MCHC 32.3 g/dL 32.0-3 5.5 Not Available [facility] (Lab) [address], [place], [address], 08/10/2023 20:12:54 08/09/19 24 08/09/2023 CBC W/DIF F RDW 12.3 % 11.0-1 5.0 Not Available [facility] ([facility]) [address], [place], [address], 08/10/2023 20:12:54 08/09/19 24 08/09/2023 CBC W/DIF F plt 196 10'3/ uL 150-40 0 Not Available [facility] ([facility]) [address], [place], [address], 08/10/2023 20:12:54 08/09/19 24 08/09/2023 CBC W/DIF F MPV 13.2 fL 8.8-12 .1 high Not Available [facility] ([facility]) [address] [facility], [place], [address], 08/10/2023 20:12:54 08/09/19 24 08/09/2023 CBC W/DIF F NRBC's 0.0 % 0.0 Not Available [facility] ([facility]) [address], [place], [address], 08/10/2023 20:12:54 08/09/19 24 08/09/2023 CBC W/DIF F absolute NRBCs 0.0 10'3/ uL no refere nce range establ ished Not Available [facility] (Lab) [address] [facility], [place], [address], 08/10/2023 20:12:54 08/09/19 24 08/09/2023 CBC W/DIF F neutrophils 72.5 % 34.0-7 3.0 Not Available [facility] ([facility]) [address] [facility], [place], [address], 08/10/2023 20:12:54 08/09/19 24 08/09/2023 CBC W/DIF F lymphocytes 17.9 % 15.0-5 0.0 Not Available [facility] ([facility]) [address] [facility], [place], [address], 08/10/2023 20:12:54 08/09/19 24 08/09/2023 CBC W/DIF F monocytes 6.1 % 1.0-15 .0 Not Available [facility] ([facility]) [address] [facility], [place], [address], 08/10/2023 20:12:54 08/09/19 24 08/09/2023 CBC W/DIF F eosinophils 2.9 % 0.0-8. 0 Not Available [facility] ([facility]) [address] [facility], [place], [address], 08/10/2023 20:12:54 08/09/19 24 08/09/2023 CBC W/DIF F basophils 0.2 % 0.0-2. 0 Not Available [facility] (Lab) [address] [place], [address], 08/10/2023 20:12:54 08/09/19 24 08/09/2023 CBC W/DIF F immature granulocytes 0.4 % no define d refere nce range Not Available [facility] ([facility]) [address] [place], [address], 08/10/2023 20:12:54 08/09/19 24 08/09/2023 CBC W/DIF F absolute neutrophils 8.8 10'3/ uL 1.5-8. 0 high Not Available [facility] ([facility]) [address] [facility], [place], [address], 08/10/2023 20:12:54 08/09/19 24 08/09/2023 CBC W/DIF F absolute lymphocytes 2.2 10'3/ uL 1.0-4. 0 Not Available [facility] ([facility]) [address] [facility], [place], [address], 08/10/2023 20:12:54 08/09/19 24 08/09/2023 CBC W/DIF F absolute monocytes 0.7 10'3/ uL 0.2-1. 0 Not Available [facility] ([facility]) [address] [facility], [place], [address], 08/10/2023 20:12:54 08/09/19 24 08/09/2023 CBC W/DIF F absolute eosinophils 0.4 10'3/ uL 0.0-0. 6 Not Available [facility] (Lab) [address] [place], [address], 08/10/2023 20:12:54 08/09/19 24 08/09/2023 CBC W/DIF F absolute basophils 0.0 10'3/ uL 0.0-0. 3 Not Available [facility] ([facility]) [address] [place], [address], 08/10/2023 20:12:54 08/09/19 24 08/09/2023 CBC W/DIF F absolute immature granulocytes 0.1 10'3/ uL 0.00-0 .10 2023 1:47 AM: P indic ates parti al resul ts on a panel have been relea sed. Addit ional resul ts will follo w. 2023 1:47 AM: This resul t has been final verif ied. No addit ional or willams ed resul ts are expec nathan. Not Available [facility] (Lab) [address] [place], [address], 08/10/2023 20:12:54 08/09/19 24 08/09/2023 URIC ACID uric acid 2.9 mg/dL 2.3-6. 6 Not Available [facility] ([facility]) [address] [facility], [place], [address], 08/10/2023 20:12:54 08/09/19 24 08/09/2023 CMP(C OMPRE HENSI VE METAB OLIC PANEL ) sodium 135 mmol/ L 133-14 6 Not Available [facility] (Lab) [address] [facility], [place], [address], 08/10/2023 20:12:55 08/09/19 24 08/09/2023 CMP(C OMPRE HENSI VE METAB OLIC PANEL ) potassium 3.5 mmol/ L 3.5-5. 1 Not Available [facility] (Lab) [address] [facility], [place], [address], 08/10/2023 20:12:55 08/09/19 24 08/09/2023 CMP(C OMPRE HENSI VE METAB OLIC PANEL ) chloride 101 mmol/ L 98-107 Not Available [facility] (Lab) [address] [place], [address], 08/10/2023 20:12:55 08/09/19 24 08/09/2023 CMP(C OMPRE HENSI VE METAB OLIC PANEL ) carbon dioxide 24 mmol/ L 21-31 Not Available [facility] ([facility]) [address] [place], [address], 08/10/2023 20:12:55 08/09/19 24 08/09/2023 CMP(C OMPRE HENSI VE METAB OLIC PANEL ) anion gap 10 mmol/ L 4-13 Not Available [facility] (Lab) [address] [place], [address], 08/10/2023 20:12:55 08/09/19 24 08/09/2023 CMP(C OMPRE HENSI VE METAB OLIC PANEL ) blood urea nitrogen 7 mg/dL 7-25 Not Available [facility] (Lab) [address] [facility], [place], [address], 08/10/2023 20:12:55 08/09/19 24 08/09/2023 CMP(C OMPRE HENSI VE METAB OLIC PANEL ) creatinine 0.49 mg/dL 0.60-1 .30 low Not Available [facility] (Lab) [address] [facility], [place], [address], 08/10/2023 20:12:55 08/09/19 24 08/09/2023 CMP(C OMPRE HENSI VE METAB OLIC PANEL ) egfrcr (CKD-epi 2020) >90 mL/mi n/1.7 3_m2 >=60 Not Available [facility] (Lab) [address] [facility], [place], [address], 08/10/2023 20:12:55 08/09/19 24 08/09/2023 CMP(C OMPRE HENSI VE METAB OLIC PANEL ) calcium 9.9 mg/dL 8.3-10 .5 Not Available [facility] (Lab) [address] [place], [address], 08/10/2023 20:12:55 08/09/19 24 08/09/2023 CMP(C OMPRE HENSI VE METAB OLIC PANEL ) glucose 59 mg/dL 70-100 low Not Available [facility] (Lab) [address] [place], [address], 08/10/2023 20:12:55 08/09/19 24 08/09/2023 CMP(C OMPRE HENSI VE METAB OLIC PANEL ) protein, total 7.6 g/dL 6.4-8. 3 Not Available [facility] (Lab) [address] [place], [address], 08/10/2023 20:12:55 08/09/19 24 08/09/2023 CMP(C OMPRE HENSI VE METAB OLIC PANEL ) albumin 4.7 g/dL 3.5-5. 0 Not Available [facility] ([facility]) [address] [facility], [place], [address], 08/10/2023 20:12:55 08/09/19 24 08/09/2023 CMP(C OMPRE HENSI VE METAB OLIC PANEL ) ALT 18 units /L 9-43 Not Available [facility] ([facility]) [address] [facility], [place], [address], 08/10/2023 20:12:55 08/09/19 24 08/09/2023 CMP(C OMPRE HENSI VE METAB OLIC PANEL ) alkaline phosphatase 84 units /L 34-104 Not Available [facility] ([facility]) [address] [facility], [place], [address], 08/10/2023 20:12:55 08/09/19 24 08/09/2023 CMP(C OMPRE HENSI VE METAB OLIC PANEL ) AST 15 units /L 13-39 Not Available [facility] ([facility]) [address] [facility], [place], [address], 08/10/2023 20:12:55 08/09/19 24 08/09/2023 CMP(C OMPRE HENSI VE METAB OLIC PANEL ) bilirubin, total 0.4 mg/dL 0.2-1. 2 Not Available [facility] (Lab) [address] [place], [address], 08/10/2023 20:12:55 08/09/19 24 08/09/2023 HEPAT ITIS C ANTIB JILLIAN SCREE N, REFLE X TO CONFI RMATI ON hepatitis C antibody Non-re active non-re active Antib odies to HCV Not Detec nathan, does not exclu de the possi bilit y of expos ure to HCV. Not Available [facility] (Lab) [address] [facility], [place], [address], 08/10/2023 20:12:55 08/09/19 24 08/09/2023 HEPAT ITIS B SURFA CE ANTIG EN hepatitis B surface antigen Non-re active non-re active This assay was perfo rmed using [employer] reage nts and test kits. Value s obtai priyank with other assay metho ds or kits canno t be used inter willams eably . Not Available [facility] (Lab) [address] [facility], [place], [address], 08/10/2023 20:12:56 08/09/19 24 08/09/2023 HIV 1/2 ANTIG EN/AN TIBOD Y, REFLE X CONFI RMATI ON HIV antigen/anti body Nonrea ctive nonrea ctive HIV-1 antig en and HIV-1 /HIV- 2 antib odies were not detec nathan. No labor atory evide nce of HIV infec tion. Not Available [facility] (Lab) [address] [facility], [place], [address], 08/10/2023 20:12:56 08/09/19 24 08/09/2023 TSH, REFLE X FREE T4 TSH 1.25 uIU/m L 0.30-5 .33 Not Available [facility] (Lab) [address] [place], [address], 08/10/2023 20:12:57 08/09/19 24 08/09/2023 RUBEL LA IGG ANTIB JILLIAN, QUANT rubella antibodies, IgG Reacti ve reacti ve Not Available [facility] (Lab) [address] [facility], [place], [address], 08/10/2023 20:12:57 08/09/19 24 08/09/2023 RUBEL LA IGG ANTIB JILLIAN, QUANT rubella antibodies, IgG quant 55.6 IU/mL >=10 Non-r eacti ve (Non- Immun e) <10 IU/mL React mandie (Immu ne) > or = 10 IU/mL Not Available [facility] (Lab) [address] [place], [address], 08/10/2023 20:12:57 08/09/19 24 08/09/2023 HEMOG LOBIN A1C hemoglobin A1C 5.0 % 0-5.6 The Ameri can [employer] [facility] n recom mends that a prima ry goal of thera py luly d be a HBA1C of < 7% and that physi cians shoul d reeva luate the treat ment regim en in patie nts with HBA1C value s consi stent ly > 8%. <5.7% Diann l 5.7 - 6.4% Incre ased risk for diabe alvarez >=6.5 % Diagn ostic of diabe alvarez <7.0% Goal of thera py >8.0% Actio n sugge sted Not Available [facility] (Lab) [address], [place], [address], 08/10/2023 20:12:57 08/09/19 24 08/09/2023 TYPE/ RH/SC REEN ABO/Rh type O POS Not Available [facility] (Lab) [address], [place], [address], 08/10/2023 20:12:58 08/09/19 24 08/09/2023 TYPE/ RH/SC REEN antibody screen NEG Not Available [facility] (Lab) [address], [place], [address], 08/10/2023 20:12:58 08/09/19 24 08/09/2023 TYPE/ RH/SC REEN exp date 2023 23:59 Not Available [facility] (Lab) [address] [facility], [place], [address], 08/10/2023 20:12:58 08/09/19 24 08/09/2023 RPR SCREE N, REFLE X TITER /CONF IRMAT ION RPR screen Nonrea ctive nonrea ctive Not Available [facility] (Lab) [address] [place], [address], 08/10/2023 20:12:58 08/09/19 24 08/09/2023 CULTU RE: URINE result report SEE RESULT S BELOW Test: Cultu re: Urine Speci men Sourc e: Urine - Clean Catch Speci men Type: Urine Speci men Date: 2023 5:30 PM Resul t Date: 2023 5:39 AM Resul t Statu s: Final resul t Abnor mal: No Resul ting Lab: [facility] [address] [facility] [address] Tel: CULTU RE ----- ----- ----- --- No growt h in 1 day (dete ction level of 10,00 0 colon ies / ml.) Not Available [facility] (Lab) [address] [facility], [place], [address], 08/11/2023 06:44:30 08/09/19 24 08/09/2023 drug scree n, urine Amphetamines : negati ve Not Available [facility] [address], [place], [address], 08/09/2023 17:34:04 08/09/19 24 08/09/2023 drug scree n, urine Cannabinoids : positi ve Not Available [place] [address], [place], [address], 08/09/2023 17:34:04 08/09/19 24 08/09/2023 drug scree n, urine Cocaine: positi ve Not Available [place] [address], [place], [address], 08/09/2023 17:34:04 08/09/19 24 08/09/2023 drug scree n, urine Opiates: negati ve Not Available [place] [address], [place], [address], 08/09/2023 17:34:04 08/09/19 24 08/09/2023 drug scree n, urine Phenocyclidi ne: negati ve Not Available [facility] [address], [place], [address], 08/09/2023 17:34:04 08/09/19 24 08/09/2023 drug scree n, urine Barbiturates : negati ve Not Available [facility] [address], [place], [address], 08/09/2023 17:34:04 08/09/19 24 08/09/2023 drug scree n, urine Benzodiazepi sung: negati ve Not Available [place] [address], [place], [address], 08/09/2023 17:34:04 08/09/19 24 08/09/2023 drug scree n, urine Ethanol: negati ve Not Available [facility] [address], [place], [address], 08/09/2023 17:34:04 08/09/19 24 08/09/2023 drug scree n, urine Hallucinogen s: negati ve Not Available [place] [address], [place], [address], 08/09/2023 17:34:04 08/09/19 24 08/09/2023 drug scree n, urine Inhalants: negati ve Not Available [facility] [address], [place], [address], 08/09/2023 17:34:04 08/09/19 24 08/09/2023 drug scree n, urine Anabolic Steroids: negati ve Not Available [facility] [address], [place], [address], 08/09/2023 17:34:04 07/21/19 24 07/21/2023 US, obste tric, trans vagin al No observ ation record ed. [email or web address] [facility] [address], [place], [address], 07/21/2023 13:44:06 07/21/19 24 07/21/2023 US, obste tric, trans vagin al No observ ation record ed. [email or web address] [facility] [address], [place], [address], 07/21/2023 22:35:59 08/09/19 24 08/09/2023 US, obste tric, nucha l trans lucen cy No observ ation record ed. [email or web address] [facility] [address], [place], [address], 08/09/2023 14:09:25 08/09/19 24 08/09/2023 US, obste tric, nucha l trans lucen cy No observ ation record ed. [email or web address] [facility] [address], [place], [address], 08/09/2023 12:41:46 Result Notes None recorded. Problems Name Problem SNOMED Code Status Onset Date Resolution Date Notes Provider Name and Address Organization Details Recorded Time Tobacco user 219592483 Active quit Massiel hernandez, [facility] 3 15:39:03 Past pregnanc y history of severe pre-ecla mpsia 342099763 Active HELLP in first preg- del 36w. ASA, MFM gave precauti ons Massiel hernandez, [facility] 3 15:39:03 Family history of Congenit al heart disease 465352963 Active daughter 's twin IUFD 5 mos, cardiac defect- MFM, echo Massiel hernandez, [facility] 3 15:39:03 Syphilis 12150373 Active retreate d 08/05/22 BARBARA EUCEDA MD [address], [place], [address], [place] [facility] 4 00:01:19 Family history of gastrosc hisis [id number] Active daughter - MFM Massiel Orellana null, [facility] 3 15:39:03 Tobacco user [id number] Completed quit Massiel Orellana null, [facility] 3 15:39:03 Past pregnanc y history of severe pre-ecla mpsia 282131279 Completed HELLP in first preg- del 36w. ASA, MFM gave precauti ons Massiel Orellana null, [facility] 3 15:39:03 Marijuan a user [id number] Completed quit Massiel Orellana null, [facility] 3 15:39:03 Family history of Congenit al heart disease 960483186 Completed daughter 's twin IUFD 5 mos, cardiac defect- MFM, echo Massiel hernandez, [facility] 3 15:39:03 Syphilis 99878745 Completed first injectio n 10/2021. Next inj due 06/24/19 23- Seeing MFM next 05/04/22, 04/22 RPR NR titers monthly* POS AGAIN 36w 1:4, retreate d 08/05 Massiel Orellana null, [facility] 3 15:39:03 Family history of gastrosc hisis [id number] Completed daughter - MFM Massiel Orellana null, [facility] 3 15:39:03 Past pregnanc y history of section 938569829 Active x3 BARBARA EUCEDA MD [address], [place], [address], [facility] 4 23:58:05 Past pregnanc y history of section 228605337 Completed x2- to do repeat- Jose hernandez, [facility] 3 15:39:03 Past pregnanc y history of hemolysi s-elevat ed liver enzymes- low platelet count syndrome 187317955 Completed G1, delivere d at 34 weeks, discusse d Lio Nolasco MD [address], [place], [address], [facility] 4 23:08:48 Abscess of oral tissue 30539874 Completed Amox Rxed Jorge Luis Nolasco MD [address], [place], [address], [facility] 4 23:08:48 Pregnanc y 70819822 Completed 202109/09/2022 Massiel Orellana null, [facility] 4 16:34:57 Anemia 461286361 Completed 2022 1 tab BID, diet, vit C Massiel Orellana null, [facility] 3 15:39:03 Pregnanc y 83515898 Completed 202302/15/2024 Massiel Orellana [facility], [facility] 4 16:34:57 Problem Notes None recorded. Procedures Surgical History Date Name Laterality Status Provider Name and Address Organization Details Recorded Time 4 Date of Last Pap Smear completed Dior Hargrove [facility] 09/14/2023 11:08:22 3 SECTION (SURG) completed Genet Townsend [facility] 08/16/2022 09:55:[address] [facility] 11/24/2021 11:49:[address] [facility] 11/24/2021 11:49:11 Imaging Results None recorded. Procedure Notes None recorded. Medical Equipment None Reported. Allergies No known drug allergies Medications Name Sig Start Date Stop Date Status Note LastModified by Organization Details LastModified Time cetirizine 10 mg tablet TAKE 1 TABLET BY MOUTH DAILY NEEDED FOR ALLERGY SYMPTOMS 11/24 completed Not Available Not Available Not Available hydrocodone 5 mg-acetamin ophen 325 mg tablet TAKE 1 TO 2 TABLETS BY MOUTH EVERY 6 HOURS NEEDED FOR PAIN active Not Available Not Available No t Available metronidazo le 500 mg tablet Take 1 tablet every 12 hours by oral route for 7 days. 02/23 completed Not Available Not Available Not Available acyclovir 400 mg tablet TAKE 1 TABLET BY MOUTH THREE TIMES DAILY FOR 5 DAYS 02/23 completed Not Available Not Available Not Available amoxicillin 500 mg tablet TAKE 1 TABLET BY MOUTH EVERY 12 HOURS 11/24 completed Not Available Not Available Not Available oxycodone-a cetaminophe n 5 mg-325 mg tablet Take 1 tablet every 6 hours by oral route. 12/12 completed Not Available Not Available Not Available amoxicillin 875 mg tablet TAKE 1 TABLET BY MOUTH EVERY 12 HOURS active Not Available Not Available No t Available magnesium oxide 400 mg (241.3 mg magnesium) tablet 12/12 completed Not Available Not Available Not Available Bicillin L-A 2,400,000 unit/4 mL intramuscul ar syringe Bring to office for injection 12/12 completed Not Available Not Available Not Available ibuprofen 600 mg tablet TAKE 1 TABLET BY MOUTH EVERY 6 HOURS NEEDED FOR CRAMPS active Not Available Not Available No t Available albuterol sulfate HFA 90 mcg/actuati on aerosol inhaler INHALE ONE PUFF BY MOUTH FOUR TIMES DAILY NEEDED FOR SHORTNESS OF BREATH OR WHEEZING 02/23 completed Not Available Not Available Not Available ondansetron 4 mg disintegrat ing tablet DISSOLVE 1 TABLET ON THE TONGUE EVERY 6 HOURS NEEDED FOR NAUSEA OR VOMITING active Not Available Not Available No t Available oxycodone 5 mg tablet TAKE 1 TABLET BY MOUTH EVERY 4 HOURS 12/12 completed Not Available Not Available Not Available Bicillin L-A 1,200,000 unit/2 mL intramuscul ar syringe Inject 2 mL as needed by intramusc ular route as directed for 1 day. 02/23 completed Not Available Not Available Not Available aspirin 12/12 completed Not Available Not Available Not Available 12/12 completed Not Available Not Available Not Available FeroSul 325 mg (65 mg iron) tablet TAKE 1 TABLET BY MOUTH EVERY DAY active Not Available Not Available No t Available Vitals Date Recorded Body height Body mass index (BMI) Body weight Systolic And Diastolic Provider Name and Address Organization Details Last Updated DateTime 07/21/2023 163.2 cm 24.4 kg/m2 64255.71 g 100/66 mm[Hg] Dior Hargrove [facility] 07/21/2023 10:38:59 Date Recorded Body weight Provider Name an d Address Organization Details Last Updated DateTime 08/09/2023 54502.674722 g Arsalan ENCINAS [address], [place], [address], [facility] 08/09/2023 23:55:51 Date Recorded Body height Body mass index (BMI) Systolic And Diastolic Provider Name and Address Organization Details Last Updated DateTime 08/09/2023 163.2 cm 24.3 kg/m2 102/62 mm[Hg] Cara Hunter [facility] 08/09/2023 12:14:43 Date Recorded Body height Body mass index (BMI) [Percentile] Per age and sex Body mass index (BMI) Body weight Systolic And Diastolic Provider Name and Address Organization Details Last Updated DateTime 3 163.2 cm 77 % 24.9 kg/m2 78290.4 9 g 107/69 mm[Hg] Sophia Herrera [facility] 3 14:09:11 Social History Question Answer Notes LastModified by Organizat ion Details LastModified Time Tobacco Smoking Status Current Every Day Smoker Tamyzha Atkins [facility] 03/25/2022 14:14:42 Do You Have An Advance Directive? No Information not available 01/10/2022 How Many Years Have You Consumed Alcohol? 0 Information not available 01/10/2022 Are You Blind Or Do You Have Difficulty Seeing? No Information not available 11/24/2021 What Is Your Level Of Caffeine Consumption? Occasional Information not available 01/10/2022 How Much Tobacco Do You Chew? None Information not available 01/10/2022 In The 14 Days Before Symptom Onset, Have You Had Close Contact With A Laboratory-confir med COVID-19 While That Case Was Ill? No Information not available 01/10/2022 In The 14 Days Before Symptom Onset, Have You Had Close Contact With A Person Who Is Under Investigation For COVID-19 While That Person Was Ill? No Information not available 01/10/2022 Have You Been To An Area Known To Be High Risk For COVID-19? No Information not available 01/10/2022 Are You Deaf Or Do You Have Serious Difficulty Hearing? No Information not available 11/24/2021 What Type Of Diet Are You Following? REGULAR Information not available 11/24/2021 What Is The Highest Grade Or Level Of School You Have Completed Or The Highest Degree You Have Received? [id number] Information not available 01/10/2022 Are There Any Guns Present In Your Home? No Information not available 01/10/2022 Do You Use Protection During Sex? Usually Information not available 01/10/2022 Do You Use Your Seat Belt Or Car Seat Routinely? Yes Information not available 01/10/2022 Do You Have Smoke And Carbon Monoxide Detectors In Your Home? Yes Information not available 01/10/2022 At What Age Did You Start Smoking Tobacco? 20 Information not available 01/10/2022 How Much Tobacco Do You Smoke? 1 PPD Information not available 01/10/2022 Do You Use Sunscreen Routinely? No Information not available 01/10/2022 How Many Years Have You Smoked Tobacco? 2 Information not available 01/10/2022 Have You Used IV Drugs? No Information not available 01/10/2022 Do You Have Difficulty Walking Or Climbing Stairs? No [email or web address] Information not available 03/25/2022 Sex: Unknown Functional Status Question Answer Note LastModified by Organizat ion Details LastModified Time Do you use any illicit or recreational drugs? No Information not available 01/10/2022 What is your level of alcohol consumption? None Information not available 11/24/2021 Are you able to walk independently without assistance or assistive devices? YESWOREST Information not available 11/24/2021 Are you able to care for yourself independently? 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 No Information not available 03/25/2022 What is your exercise level? None Information not available 11/24/2021 Mental Status Question Answer Note LastModified by Organization D etails LastModified Time Do you feel stressed (tense, restless, nervous, or anxious, or unable to sleep at night)? [id number] Information not available 01/10/2022 Family History Relationship Description Onset Age of this Age Resolved Age Notes LastModified by Organization Details LastModified Time Father Heart disease Not available 2021 12:52:52 Mother Diabetes mellitus Not available 2021 12:52:52 Notes:heart disease and diab etes Medical History Condition Response Allergies (Food, seasonal, environmental ) N Other Y Breast Cancer N Drug/Latex Allergies/Reactions N Blood Transfusion N Dermatologic Disorders N Lung Disease N Defects or Inherited Disease N Breast Problem N Gestational Diabetes N Hematologic disorders N Anesthesia Complications N History of STI Y Deep Vein Thrombosis N Polycystic ovary syndrome N Anxiety Disorder N Autoimmune disease N Arthritis N Infertility Y Polyps N Acid Reflux (GERD) N History of abnormal pap N Cancer N Stroke N Varicosities N Neurologic/Epilepsy N Endometriosis N High Cholesterol N Headaches N Fibromyalgia N Kidney Disease N Heart Problems N Kidney or Bladder Problems N Thyroid Problems N GI Problems N Eating Disorder N Anemia N Art (IVF or FET) N Psychiatric Illness N Ovarian Cancer N Diabetes N Pulmonary (TB, Asthma) N Hepatitis/Liver Disease N No Past Medical History N Eczema N Urinary Tract Infection N Abuse/Domestic Violence N Asthma N Trauma/Violence N Depression/ depression N Heart Disease N Pre-Eclampsia Y Hypertension Y Osteoporosis N Thrombophilias N Gynecological History Statement/Question Response Date of Last Mammogram Flow Moderate Date of LMP On BCP's at Conception? N N Was last menstrual period normal N STIs/STDs Yes HPV Vaccine N Duration of Flow (days) 4 Current Control Method Age at First Child 15 Sexually Active? Y Date of DEXA bone scan Age of first menstrual cycle 14 Date of Last Pap Smear 07/21/2023 Sexual Problems? 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 Sexually t ransmitted infectious disease 5105690 A64 [id number] ABEL Lucero [facility] [address],[place] [address] 12/01/2021 09:48:42 12/02/2021 16:44:50 Sexually transmitted infectious disease 9772029 A64 [id number] ABEL Lucero [facility] [address],[place] [address] 01/06/2022 11:59:01 01/06/2022 13:18:42 Venereal disease screening 231498064 Z11.3 Amenorrhea 05974261 N91. 2 Urine preg sheryl test positive 247474624 Z32.01 UPT (+) todayDiscu ssed this with patientShe was not trying for , she has no symptomsLM P 11/08/21Cur rently has female partner, had unprotecte d IC with male partner about 2-3 months agoOptions discussed. She would like to continue with a potential . Bhcg orderedWil l update patient with bhcg result tomorrowSt art taking daily PNV Time spent in visit is a total of 30 mins with at least 50% of visit consisting of counseling and review of plan of care. Exposure t o sexually transmissible disorder 593876776 Z20.2 Patients partner (+) for trichomona s, rx sent for metronidaz ole BID for 7 days. Urine STI sent. MAR needed in 4-8 weeks.Abst ain from IC until MAR appointmen t for both partners History of syphilis 1087 247943 629102 Z86.19 Treated for syphilis at [facility] on 12/01/2021 [id number] Trisha Biswas CNM [facility] [address],[place] [address] 01/10/2022 12:18:15 01/10/2022 14:25:22 test positive 058494125 Z32.01 Risk factors addressed: Tobacco Cessation, Safe Sexual Practices, environmen christian, work hazards, travel restrictio ns, seat belt use.Eat a health well balanced diet, avoid alcohol, tobacco, and street drugs.Enga ge in daily low impact exercise, avoid temperatur e extremes, and cat, rodent, and bird feces.Avoi d travel to areas where zika virus is a concern.Of fered cf/sma/nip t. Handouts given and discussed with patient. Desires testing. ildbirth classes recommende d.New OB sheet given.MFM visit samantha d/t history of hellp, syphillis infection and child with gastroschi sis.If previous , counseling .Pt verbalizes that she understand s the importance of above instructio ns.All questions were answered.P atient reminded to have annual well woman examinatio n and address preventati ve healthcare . [id number] Jorge Luis Nolasco MD [facility] [address],[place] [address] 01/10/2022 12:18:00 01/10/2022 14:25:38 Uterine size for dates discrepancy 054197206 O26.849 [id number] Tiffani Gerber MD [facility] [address],[place] [address] 02/23/2022 09:38:00 02/23/2022 10:50:13 [id number] Tiffani Gerber MD [facility] [address],[place] [address] 02/23/2022 09:38:51 02/23/2022 14:47:15 Routine care 122803970 Z34.91 Family his tory of Congenital heart disease 740398343 Z82.79 Family his tory of gastroschisis 5377812535 762690 Z83.79 Past pregn wendie history of section 402707602 Z98.890 Past pregn wendie history of severe pre-eclampsia 802196336 Z87.59 Syphilis 47193508 A53.9 Tobacco user 522916084 Z 72.0 [id number] [facility] [address],[place] [address] 03/25/2022 14:14:05 03/25/2022 14:43:41 Routine care 578066186 Z34.92 [id number] [facility] [address],[place] [address] 04/22/2022 12:47:07 04/22/2022 14:21:55 Routine care 734756079 Z34.92 [id number] [facility] [address],[place] [address] 05/23/2022 11:10:48 05/23/2022 18:29:42 Routine care 001286842 Z34.92 [id number] Jorge Luis Nolasco MD [facility] [address],[place] [address] 05/27/2022 11:12:05 05/30/2022 13:13:23 Routine care 096602002 Z34.82 [id number] Tiffani Gerber MD [facility] [address],[place] [address] 06/28/2022 12:06:42 06/28/2022 14:35:50 Routine care 101542107 Z34.91 Past pregn wendie history of section 993076290 Z98.890 Syphilis 89789748 A53.9 Vaginal di scharge problem 184428109 N89.9 [id number] Tiffani Gerber MD [facility] [address],[place] [address] 06/28/2022 12:42:31 06/28/2022 14:02:27 Medical examination for suspected condition 673593898 Z03.71 [id number] Tiffani Gerber MD [facility] [address],[place] [address] 07/12/2022 16:10:43 07/13/2022 10:47:26 Routine care 813859747 Z34.91 Reduced fe christian movement 020008500 O36.8130 Z3A.34 [id number] Tiffani Gerber MD [facility] [address],[place] [address] 07/12/2022 16:51:14 07/12/2022 17:28:49 Reduced movement 969309458 O36.8199 [id number] Tiffani Gerber MD [facility] [address],[place] [address] 07/12/2022 16:51:27 07/12/2022 17:54:53 Reduced movement 266162584 O36.8130 Z3A.34 [id number] Tiffani Gerber MD [facility] [address],[place] [address] 07/19/2022 12:41:05 07/19/2022 13:34:08 Past history of section 263205395 Z98.890 Past pregn wendie history of severe pre-eclampsia 819147491 Z87.59 Routine an tenatal care 321692821 Z34.91 [id number] Tiffani Gerber MD [facility] [address],[place] [address] 07/26/2022 15:40:39 07/27/2022 10:23:57 Routine care 869404322 Z34.91 Past pregn wendie history of section 691994859 Z98.890 Syphilis 49310146 A53.9 [id number] Tiffani Gerber MD [facility] [address],[place] [address] 07/29/2022 13:19:56 07/29/2022 13:56:50 Reduced movement 186877631 O36.8130 O26.853 Z3A.36 [id number] Tiffani Gerber MD [facility] [address],[place] [address] 08/05/2022 14:17:52 08/08/2022 15:34:24 Syphilis 38096759 A53.9 Routine an tenatal care 187441101 Z34.91 Past pregn wendie history of section 753738824 Z98.890 [id number] Tiffani Gerber MD [facility] [address],[place] [address] 08/10/2022 15:04:19 08/10/2022 15:56:27 Maternal syphilis during - baby not yet delivered 784090138 O98.119 [id number] Tiffani Gerber MD [facility] [address],[place] [address] 08/10/2022 15:04:40 08/11/2022 12:40:55 Routine care 216751696 Z34.91 Past pregn wendie history of section 829253113 Z98.890 Syphilis 27615213 A53.9 [id number] Tiffani Gerber MD [facility] [address],[place] [address] 08/10/2022 16:35:40 08/10/2022 17:04:20 Maternal syphilis during - baby not yet delivered 757221889 O98.119 Z3A.38 [id number] Jorge Luis Nolasco MD [facility] [address],[place] [address] 08/12/2022 15:23:03 08/15/2022 13:25:40 Syphilis 38843679 A53.9 [id number] Tiffani Gerber MD [facility] [address],[place] [address] 08/16/2022 09:38:19 08/16/2022 09:40:37 [id number] Tiffani Gerber MD [facility] [address],[place] [address] 08/23/2022 12:27:33 08/23/2022 14:39:13 Postoperative visit 842806594 Z09 [id number] ABEL Lucero [facility] [address],[place] [address] 12/12/2022 13:54:53 12/12/2022 16:38:45 Venereal disease screening 596409237 Z11.3 gc/ct/tric h testing sentblood STI panel orderedsaf e sexual practices discussed and encouraged BC options discussed - declinedco unseled pt on the risk of repeat sooner than 18 months. Discussed ACOG recommenda tions. Discussed BC options - declined.w ill update patient with results when available Time spent in visit is a total of 30 mins with at least 50% of visit consisting of counseling and review of plan of care. Sexually t ransmitted infectious disease 7749722 A64 History of syphilis 1087 319043 908686 Z86.19 Contracept ion care management 843427304 Z30.9 [id number] Jorge Luis Nolasco MD [facility] [address],[place] [address] 07/21/2023 09:51:17 07/21/2023 10:37:17 Uterine size for dates discrepancy 776077894 O26.849 [id number] Margaret Butcher CNM [facility] [address],[place] [address] 07/21/2023 09:51:46 07/21/2023 10:57:47 Amenorrhea 17271070 N91.2 Take Calcium with Vitamin D 1200mg daily if not receiving in daily diet. It is strongly advised to have an annual flu shot and up can obtain at most pharmacies . If you have not had a TDap shot in the last 10 years you should obtain one as well. Discussed with patient & provided with informatio n regarding Gardisil vaccine to prevent the 4 strains for HPV that cause cervical cancer if under age 26. Encourage safe sexual practices, to use condoms and limit partners if not already in a monogamous relationsh ip. Do monthly self breast exams. Have mammogram yearly or every other year depending on family history. BRCA testing is now available for patients with strong genetic history of female cancer. If interested contact the office. Engage in daily exercise of low impact aerobic exercise 45-60 minutes 4-5 times weekly. Avoid tobacco and illicit drugs as well as using moderation with alcohol intake less than 1-2 8 oz beverages daily. This lifestyle behavior pattern will lead to less health conditions and longer life span. If BMI greater than 25 weight watchers or dietary consult advised. Patient received above instructio ns, and questions have been answered. If you have any questions please call or respond to this email. Patient was made aware of the patient portal and may obtain a paper copy of today's plan if desired. education and precaution s reviewed, labs todaypap donef/u new ob and first look at 12 weeks Gynecologi c examination 87990266 Z01.419 [id number] BARBARA EUCEDA MD [facility] [address] [address] 08/09/2023 10:46:11 08/10/2023 11:29:57 Routine care 515077964 Z34.90 Family his tory of gastroschisis 0582972671 424849 Z83.79 Past pregn wendie history of section 162727303 Z98.890 Past pregn wendie history of severe pre-eclampsia 944159672 Z87.59 Gestation period, 12 weeks 01393002 Z3A.12 [id number] Jorge Luis Nolasco MD [facility] [address] [address] 08/09/2023 10:59:22 08/09/2023 12:57:20 screening 476109043 Z36.82 Z3A.12 Health Concerns Section Related Observation LastModified by Organization Detai ls LastModified Time None Recorded Concern Status LastModified by Organization Details LastModified Time None Recorded Advance Directives Directive N: Payers Insurance Date Sequence Insurance Name Policy Number Policy Terry Covered Member ID Terry Member ID Guarantor Name 04/04/2024 1 [facility] - DOS ON OR AFTER 20 (MEDICAID REPLACEMENT - HMO) Bekah Robbins [id number] Bekah Trigg Notes Date Note Type Note Provider Name and Address Organization Details Recorded Time 3 text/html 22yo [id number] for STI testingrecently SA again with her previous male partner. States she is going through a divorce with her female partner.s/p c/s 08/16/22 - doing well, bottle feedingstates she is currently trying to conceive again and has questions about fertility neg vaginal symptomstreated for syphilis 11/2021 - then again 07/2022. [facility] partner was also treated ABEL Lucero [address], [place], [address], [facility] 12/12/2022 16:38:34 4 text/html Annual GYNReported by PatientGenitourinary symptomsFor menstrual cycle, patient reportsnormal menses. For urinary symptoms, patient reportsno hematuriaandno incontinence. For vulva, patient reportsno genital lesion. For vagina, patient reportsnormal vaginal discharge.Breast symptomsFor breast, patient reportsno breast pain,no breast lump, andno nipple discharge.Endocrine symptomsFor sexual complaints, patient reportsno sexual complaints,no pain during intercourse, andnormal libido. For menopausal symptoms, patient reportsno menopausal symptomsandnormal vaginal lubrication.Psychological symptomsFor psychological symptoms, patient reportsno depression,no anxiety, andno pmdd.Preventative measuresFor preventive measures, patient reportsencourage self breast examination,encourage regular exercise, andencourage no tobacco use.doing well, happy about pregnancyROS as noted in the HPI Dior hernandez, [facility] 07/21/2023 15:50:49 OBGyn Episode Ob Episode Information Episode Created Date Number of Fetuses Patient Bloodtype Patient rh Status Prepregnancy Weight lbs Domestic Partner Domestic Partner Phone Father Name Planning Intern Status 11/25/19 22 1 CLOSED Fetus Data First Name Last Name Admitted to NICU Weight (g) Sex Living Outcome Pediatric Complications Fetus ID Race Codes Race Delivery Type 2919.77 1704 M Prematur [place] [id number] Primary Karlos Calculation Initial Karlos Date Initial Exam Date Initial Exam Provider Initial Ultrasound Date Last Menstrual Period Date Ultra Sound Weeks Gestation 0 Eighteen To Twenty Week Karlos Update Ultra Sound Date Fundal Height At Umbil Quickening Date Ultra Sound Latest Weeks Gestation Final Karlos Confirmed By Final Karlos Confirmed Date Final Karlos Date Ultra Sound Latest Days Gestation 0 0 Menstrual History Last Menstrual Date Menses Monthly On Bcp Conception Prior Menses Frequency Hcg Plus Date Menarche Onset Age Delivery Information Delivery Date Delivery Type Labor Anesthesia Weeks Gestation Incision Type Labor Labor Length Hrs Delivered By Post Complications Tubal Sterilization Discharge Date Comments 6 36 preeclam p lea/ HELLP/ GHTN Discharge Information Feeding Method Contraceptive Method Maternal HG B and HCT Levels Ob Episode Information Episode Created Date Number of Fetuses Patient Bloodtype Patient rh Status Prepregnancy Weight lbs Domestic Partner Domestic Partner Phone Father Name Planning Intern Status 03/25/20 22 1 CLOSED Fetus Data First Name Last Name Admitted to NICU Weight (g) Sex Living Outcome Pediatric Complications Fetus ID Race Codes Race Delivery Type , Spontane ous [id number] Karlos Calculation Initial Karlos Date Initial Exam Date Initial Exam Provider Initial Ultrasound Date Last Menstrual Period Date Ultra Sound Weeks Gestation 0 Eighteen To Twenty Week Karlos Update Ultra Sound Date Fundal Height At Umbil Quickening Date Ultra Sound Latest Weeks Gestation Final Karlos Confirmed By Final Karlos Confirmed Date Final Karlos Date Ultra Sound Latest Days Gestation 0 0 Menstrual History Last Menstrual Date Menses Monthly On Bcp Conception Prior Menses Frequency Hcg Plus Date Menarche Onset Age Delivery Information Delivery Date Delivery Type Labor Anesthesia Weeks Gestation Incision Type Labor Labor Length Hrs Delivered By Post Complications Tubal Sterilization Discharge Date Comments 0 Discharge Information Feeding Method Contraceptive Method Maternal HG B and HCT Levels Ob Episode Information Episode Created Date Number of Fetuses Patient Bloodtype Patient rh Status Prepregnancy Weight lbs Domestic Partner Domestic Partner Phone Father Name Planning Intern Status 11/25/19 22 2 CLOSED Fetus Data First Name Last Name Admitted to NICU Weight (g) Sex Living Outcome Pediatric Complications Fetus ID Race Codes Race Delivery Type Demise [id number] Repeat 1983.46 5 F Prematur e [id number] Repeat Karlos Calculation Initial Karlos Date Initial Exam Date Initial Exam Provider Initial Ultrasound Date Last Menstrual Period Date Ultra Sound Weeks Gestation 0 Eighteen To Twenty Week Karlos Update Ultra Sound Date Fundal Height At Umbil Quickening Date Ultra Sound Latest Weeks Gestation Final Karlos Confirmed By Final Karlos Confirmed Date Final Karlos Date Ultra Sound Latest Days Gestation 0 0 Menstrual History Last Menstrual Date Menses Monthly On Bcp Conception Prior Menses Frequency Hcg Plus Date Menarche Onset Age Delivery Information Delivery Date Delivery Type Labor Anesthesia Weeks Gestation Incision Type Labor Labor Length Hrs Delivered By Post Complications Tubal Sterilization Discharge Date Comments 9 second twin was demise at 5 months Discharge Information Feeding Method Contraceptive Method Maternal HG B and HCT Levels Ob Episode Information Episode Created Date Number of Fetuses Patient Bloodtype Patient rh Status Prepregnancy Weight lbs Domestic Partner Domestic Partner Phone Father Name Planning Intern Status 02/24/20 22 1 O Positive 129 CLOSED Fetus Data First Name Last Name Admitted to NICU Weight (g) Sex Living Outcome Pediatric Complications Fetus ID Race Codes Race Delivery Type Malach i 3458.63 9 M true Full Term [id number] Repeat Problems Problem Notes AFP WNL, 37wk HIV NEGMFM nex t appt: MFM 06/29 u/s & consult, 08/03/22 945a u/s and npRecommendations - screen for hemoglobinopathy, LD ASA, syphillis serology titer monthly, serial /36wk growth ultrasound, testing TBD, delivery TBD, placenta to pathology, notify pedi for RPR and DFA testing if lesion or nasal drainage, pathologic exam of placenta/cord with fluorescent antitreponemal antibody staining. RPT HIV, GC/CT LATER IN 3RD TRI, Problem Name Start Date End Date Resolution Snomed Code Not e Anemia 05/30/2022 MEDICATION [id number] 1 tab BI D, diet, vit C Tobacco user [id number] quit Past history of severe pre-eclampsia [id number] HELLP in first preg- del 36w. ASA, MFM gave precautions Marijuana user [id number] quit Family history of Congenital heart disease [id number] daughter's twin IUFD 5 mos, cardiac defect- [facility], echo Syphilis [id number] first inje ction 10/2021. Next inj due 06/23/2022- Seeing MFM next 05/04/22, 04/22 RPR NR titers monthly POS AGAIN 36w 1:4, retreated 08/05 Family history of gastroschisis [id number] daughter- [facility] Past history of section [id number] x2- to do victoria Gerber Karlos Calculation Initial Karlos Date Initial Exam Date Initial Exam Provider Initial Ultrasound Date Last Menstrual Period Date Ultra Sound Weeks Gestation 08/20/2022 02/23/2022 01/10/2022 8 Eighteen To Twenty Week Karlos Update Ultra Sound Date Fundal Height At Umbil Quickening Date Ultra Sound Latest Weeks Gestation Final Karlos Confirmed By Final Karlos Confirmed Date Final Karlos Date Ultra Sound Latest Days Gestation 0 [email or web address] 02/23/2022 08/21/19 23 0 Pre-chapis Flowsheet Flowsheet Date 02/23/2022 Almeida Score Blood Edema Fundus Height Fundus Units Glucose Ketones Leukocytes Nitrite Labor Signs Protein Cervic Dilation Cervic Effacement Cervic Station neg none none trace Type Weight in lbs Pre/Post Dialysis Refused Weight 134.488832221428 BP Diastolic BP Location Tested BP Systolic BP Type 63 97 Fetus Heart Rate Present A 145 Fetus Movement A No Comments Bekah is a 21yo 2 at 14.4 for care. She has had 2 CS. G1 age 15 delivered 36w with HELLP. G2 18yo 34w baby had gastroschisis and nonreassuring status. That she also lost a twin at 5mos that had a cardiac defect. This is complicated by a recent dx of syphilis, got first injection in Oct. She just stopped smoking cigarettes and marijuana. Labs already done. US today normal progression, too far for NT. Has [facility] US and consult on 03/09 for the above history. Will do anatomy US at [facility] as well. She is feeling well. We will plan a repeat CS. FU 4w. Flowsheet Date 03/25/2022 Almeida Score Blood Edema Fundus Height Fundus Units Glucose Ketones Leukocytes Nitrite Labor Signs Protein Cervic Dilation Cervic Effacement Cervic Station Type Weight in lbs Pre/Post Dialysis Refused Weight 138.582088310492 BP Diastolic BP Location Tested BP Systolic BP Type 68 112 Fetus Heart Rate Present A 152 Present Fetus Movement Comments did not start ASA yet, going to get it this weekend. +FM, draw blood today per [facility], reviewed precautions, encourage hydration f/u at [facility] on 04/06/22 Flowsheet Date 04/22/2022 Almeida Score Blood Edema Fundus Height Fundus Units Glucose Ketones Leukocytes Nitrite Labor Signs Protein Cervic Dilation Cervic Effacement Cervic Station neg none 20 none trace Type Weight in lbs Pre/Post Dialysis Refused Weight 142.902436420197 BP Diastolic BP Location Tested BP Systolic BP Type 66 100 Fetus Heart Rate Present A 145 Fetus Movement A Yes Comments has [facility] appt, blood draw to ay for RPR, precautions reviewed, see dr. gerber at next visit, call if any quetions Flowsheet Date 05/23/2022 Almeida Score Blood Edema Fundus Height Fundus Units Glucose Ketones Leukocytes Nitrite Labor Signs Protein Cervic Dilation Cervic Effacement Cervic Station neg none 27 none trace Type Weight in lbs Pre/Post Dialysis Refused Weight 150.422533884615 BP Diastolic BP Location Tested BP Systolic BP Type 62 97 Fetus Heart Rate Present A 140 Fetus Movement A Yes Comments Doing well. Wants to do her gtt on Monday. Will recheck rpr with that draw. Next [facility] on 06-01. Having a boy! Encouraged to see MD next visit. Flowsheet Date 05/27/2022 Almeida Score Blood Edema Fundus Height Fundus Units Glucose Ketones Leukocytes Nitrite Labor Signs Protein Cervic Dilation Cervic Effacement Cervic Station 28 Type Weight in lbs Pre/Post Dialysis Refused Weight 153.791272326208 BP Diastolic BP Location Tested BP Systolic BP Type 63 R arm 100 sitting Fetus Heart Rate Present A 145 Fetus Movement A Yes Comments Syphilis titer today, diabet es testing today, no complaints, Flowsheet Date 06/28/2022 Almeida Score Blood Edema Fundus Height Fundus Units Glucose Ketones Leukocytes Nitrite Labor Signs Protein Cervic Dilation Cervic Effacement Cervic Station neg none 29 none trace Type Weight in lbs Pre/Post Dialysis Refused Weight 158.028794097576 BP Diastolic BP Location Tested BP Systolic BP Type 62 94 Fetus Heart Rate Present A 135 Fetus Movement A Yes Comments Doing ok. Missed last appt. UDS for missed appt. GCT wnl, Hgb was 9.8, just picked up iron yesterday. syphilis titer today, though RPR was neg 04/22. Back to [facility] 07/06.She complains of a water gush on 06/10 and again yesterday, each time soaked underwear x1 then went away. On SSE, white discharge only, no pooling, no gush with valsalva, neg nitrazine. US for ESTEFANY- 13.8. STD testing done. Will schedule repeat CS. Flowsheet Date 06/28/2022 Almeida Score Blood Edema Fundus Height Fundus Units Glucose Ketones Leukocytes Nitrite Labor Signs Protein Cervic Dilation Cervic Effacement Cervic Station Type Weight in lbs Pre/Post Dialysis Refused BP Diastolic BP Location Tested BP Systolic BP Type Fetus Heart Rate Present Fetus Movement Comments Flowsheet Date 07/12/2022 Almeida Score Blood Edema Fundus Height Fundus Units Glucose Ketones Leukocytes Nitrite Labor Signs Protein Cervic Dilation Cervic Effacement Cervic Station neg none 32 none trace Type Weight in lbs Pre/Post Dialysis Refused Weight 160.867732816612 BP Diastolic BP Location Tested BP Systolic BP Type 68 130 Fetus Heart Rate Present A 145 Fetus Movement A No Comments Overnight went to triage wit h decreased FM. Was sent home at 2am everything was fine, but has not felt ANY FM since then, despite eating, resting, drinking. NO MJ yesterday or today. Also mild LANDIN today. BP borderline, will do PIH labs with history. NSt reactive, BPP 8/8. On NSt she felt plenty of movement. Discussed kick counts with no distractions, when to return for monitoring. ESTEFANY 14cm. CS scheduled 08/15. Flowsheet Date 07/12/2022 Almeida Score Blood Edema Fundus Height Fundus Units Glucose Ketones Leukocytes Nitrite Labor Signs Protein Cervic Dilation Cervic Effacement Cervic Station Type Weight in lbs Pre/Post Dialysis Refused BP Diastolic BP Location Tested BP Systolic BP Type Fetus Heart Rate Present Fetus Movement Comments Flowsheet Date 07/12/2022 Almeida Score Blood Edema Fundus Height Fundus Units Glucose Ketones Leukocytes Nitrite Labor Signs Protein Cervic Dilation Cervic Effacement Cervic Station Type Weight in lbs Pre/Post Dialysis Refused BP Diastolic BP Location Tested BP Systolic BP Type Fetus Heart Rate Present Fetus Movement Comments Flowsheet Date 07/19/2022 Almeida Score Blood Edema Fundus Height Fundus Units Glucose Ketones Leukocytes Nitrite Labor Signs Protein Cervic Dilation Cervic Effacement Cervic Station none 34 Type Weight in lbs Pre/Post Dialysis Refused Weight 158.849049126501 BP Diastolic BP Location Tested BP Systolic BP Type 72 112 Fetus Heart Rate Present A 130 Fetus Movement A Yes Comments Doing miserable. Complains of extreme pressure, back pain, headaches. Has not tried tylenol at all. Discussed comfort measures. BP great. Is taking ASA. Precautions given. Support given. Flowsheet Date 07/26/2022 Almeida Score Blood Edema Fundus Height Fundus Units Glucose Ketones Leukocytes Nitrite Labor Signs Protein Cervic Dilation Cervic Effacement Cervic Station none 35 0cm Type Weight in lbs Pre/Post Dialysis Refused Weight 162.171576761979 BP Diastolic BP Location Tested BP Systolic BP Type 78 122 Fetus Heart Rate Present A 140 Fetus Movement A Yes Comments Doing ok. Pain is improved w ith tylenol. Will schedule preregistration. GBS done and discussed. BP great. Precautions given. HIV, RPR today. Flowsheet Date 07/29/2022 Almeida Score Blood Edema Fundus Height Fundus Units Glucose Ketones Leukocytes Nitrite Labor Signs Protein Cervic Dilation Cervic Effacement Cervic Station Type Weight in lbs Pre/Post Dialysis Refused BP Diastolic BP Location Tested BP Systolic BP Type Fetus Heart Rate Present Fetus Movement Comments Flowsheet Date 08/05/2022 Almeida Score Blood Edema Fundus Height Fundus Units Glucose Ketones Leukocytes Nitrite Labor Signs Protein Cervic Dilation Cervic Effacement Cervic Station neg trace none trace Type Weight in lbs Pre/Post Dialysis Refused Weight 161.398525530186 BP Diastolic BP Location Tested BP Systolic BP Type 71 L arm 112 sitting Fetus Heart Rate Present A 145 Fetus Movement A Yes Comments R CS in 10 days. RPR was pos again. Partner tested neg and received first dose months ago but never got second. Bekah retreated today with first dose, second dose next week. Precautions given. Flowsheet Date 08/10/2022 Almeida Score Blood Edema Fundus Height Fundus Units Glucose Ketones Leukocytes Nitrite Labor Signs Protein Cervic Dilation Cervic Effacement Cervic Station Type Weight in lbs Pre/Post Dialysis Refused BP Diastolic BP Location Tested BP Systolic BP Type Fetus Heart Rate Present Fetus Movement Comments Flowsheet Date 08/10/2022 Almeida Score Blood Edema Fundus Height Fundus Units Glucose Ketones Leukocytes Nitrite Labor Signs Protein Cervic Dilation Cervic Effacement Cervic Station trace Type Weight in lbs Pre/Post Dialysis Refused Weight 162.221369305051 BP Diastolic BP Location Tested BP Systolic BP Type 68 102 Fetus Heart Rate Present A 130 Fetus Movement A Yes Comments Doing fine. NST reactive. CS monday. 2nd PCN injection Monday. Last IV iron infusion Monday also. Discussed CS, questions answered. Flowsheet Date 08/10/2022 Almeida Score Blood Edema Fundus Height Fundus Units Glucose Ketones Leukocytes Nitrite Labor Signs Protein Cervic Dilation Cervic Effacement Cervic Station Type Weight in lbs Pre/Post Dialysis Refused BP Diastolic BP Location Tested BP Systolic BP Type Fetus Heart Rate Present Fetus Movement Comments Flowsheet Date 08/10/2022 Almeida Score Blood Edema Fundus Height Fundus Units Glucose Ketones Leukocytes Nitrite Labor Signs Protein Cervic Dilation Cervic Effacement Cervic Station Type Weight in lbs Pre/Post Dialysis Refused BP Diastolic BP Location Tested BP Systolic BP Type Fetus Heart Rate Present Fetus Movement Comments Flowsheet Date 08/12/2022 Almeida Score Blood Edema Fundus Height Fundus Units Glucose Ketones Leukocytes Nitrite Labor Signs Protein Cervic Dilation Cervic Effacement Cervic Station Type Weight in lbs Pre/Post Dialysis Refused BP Diastolic BP Location Tested BP Systolic BP Type Fetus Heart Rate Present Fetus Movement Comments Flowsheet Date 08/15/2022 Almeida Score Blood Edema Fundus Height Fundus Units Glucose Ketones Leukocytes Nitrite Labor Signs Protein Cervic Dilation Cervic Effacement Cervic Station Type Weight in lbs Pre/Post Dialysis Refused BP Diastolic BP Location Tested BP Systolic BP Type Fetus Heart Rate Present Fetus Movement Comments Flowsheet Date 08/23/2022 Almeida Score Blood Edema Fundus Height Fundus Units Glucose Ketones Leukocytes Nitrite Labor Signs Protein Cervic Dilation Cervic Effacement Cervic Station Type Weight in lbs Pre/Post Dialysis Refused Weight 146.810410464075 BP Diastolic BP Location Tested BP Systolic BP Type 71 110 Fetus Heart Rate Present Fetus Movement Comments Menstrual History Last Menstrual Date Menses Monthly On Bcp Conception Prior Menses Frequency Hcg Plus Date Menarche Onset Age Genetic Screening And Infection History Question Response Note Mental Retardation/Autism false Patient's Age Will Be 35 Yea rs Or Older At Estimated Date of Delivery false Thalassemia (Austrian, Tuvaluan, Mediterranean, Or Background): MCV < 80 false Neural Tube Defect (Meningom yelocele, Spina Bifida, Or Anencephaly) false Congenital Heart Defect true lost a t win with heart defect Down Syndrome false Elmer-Sachs (eg, Latter-Day, Cajun, Angolan-Clay) f alse Vish Disease false Sickle Cell Disease Or Trait () false Hemophilia Or Other Blood Disorders false Muscular Dystrophy false Cystic Fibrosis false [place]'s Chorea false Intellectual Disability/Autism false If Yes, Was Person Tested For Fragile X? false Other Inherited Genetic Or C hromosomal Disorder false Maternal Metabolic Disorder (eg, Type 1 Diabetes, PKU) false Patient Or Baby's Father Had A Child With Defects Not Listed Above false daughter with gastrosch georgette Recurrent Loss, Or A Stillbirth false Medications (including Suppl ements, Vitamins, Herbs, OTC Drugs), Illicit/Recreational Drugs, Alcohol true MJ If Yes, Agent(s) And Strength/Dosage false Any Other Genetic History false Live With Someone With TB Or Exposed To TB false Patient Or Partner Has Histo ry Of Genital Herpes false Rash Or Viral Illness Since Last Menstrual Period false History Of STD, Gonorrhea, C hlamydia, HPV, Syphilis true syphilis Other Infection History false History of HIV false History of Hepatitis false Prior GBS-infected child false Hemoglobinopathy Or Carrier false Other Structural Defect false Recent Travel History Outside of Country false Delivery Information Delivery Date Delivery Type Labor Anesthesia Weeks Gestation Incision Type Labor Labor Length Hrs Delivered By Post Complications Tubal Sterilization Discharge Date Comments 3 None Regional-Sp inal 39.2 Low Transvers e false Tiffani Gerber MD Syphilis, Anemia, Rpt Discharge Information Feeding Method Contraceptive Method Maternal HG B and HCT Levels Ob Episode Information Episode Created Date Number of Fetuses Patient Bloodtype Patient rh Status Prepregnancy Weight lbs Domestic Partner Domestic Partner Phone Father Name Planning Intern Status 08/09/19 24 1 O Positive CLOSED Fetus Data First Name Last Name Admitted to NICU Weight (g) Sex Living Outcome Pediatric Complications Fetus ID Race Codes Race Delivery Type [id number] Problems Problem Notes Problem Name Start Date End Date Resolution Snomed Code Not e Abscess of oral tissue 40511604 Amox Rxed Past history of hemolysis-elevated liver enzymes-low platelet count syndrome 911278702 G1, delivered a t 34 weeks, discussed bASA Karlos Calculation Initial Karlos Date Initial Exam Date Initial Exam Provider Initial Ultrasound Date Last Menstrual Period Date Ultra Sound Weeks Gestation 02/21/2024 08/09/2023 07/21/2023 9 Eighteen To Twenty Week Karlos Update Ultra Sound Date Fundal Height At Umbil Quickening Date Ultra Sound Latest Weeks Gestation Final Karlos Confirmed By Final Karlos Confirmed Date Final Karlos Date Ultra Sound Latest Days Gestation 0 08/09/2023 02/21/20 24 0 Pre- Flowsheet Flowsheet Date 08/09/2023 Almeida Score Blood Edema Fundus Height Fundus Units Glucose Ketones Leukocytes Nitrite Labor Signs Protein Cervic Dilation Cervic Effacement Cervic Station Type Weight in lbs Pre/Post Dialysis Refused Weight 142.363236944729 BP Diastolic BP Location Tested BP Systolic BP Type 62 102 Fetus Heart Rate Present A 154 Fetus Movement A No Comments Presents to establish prenat al care. OVerall doing well, some fatigue. complicated by hx of c section x3, HELLP syndrome in G1, and gastroschiesis in G2 fetus plus demise of one twin in that . Recommended bASA ppx in this as well. No hx of chronic HTN. Plan for RCS for delivery. NT/NB wnl. Desires NIPT will draw with new OB labs this AM. RTC 4 weeks. Menstrual History Last Menstrual Date Menses Monthly On Bcp Conception Prior Menses Frequency Hcg Plus Date Menarche Onset Age Genetic Screening And Infection History Question Response Note Mental Retardation/Autism false Patient's Age Will Be 35 Yea rs Or Older At Estimated Date of Delivery false Thalassemia (Austrian, Tuvaluan, Mediterranean, Or Background): MCV < 80 false Neural Tube Defect (Meningom yelocele, Spina Bifida, Or Anencephaly) false Congenital Heart Defect false Down Syndrome false Elmer-Sachs (eg, Latter-Day, Cajun, Angolan-Clay) f alse Vish Disease false Sickle Cell Disease Or Trait () false Hemophilia Or Other Blood Disorders false Muscular Dystrophy false Cystic Fibrosis false Al[place]'s Chorea false Intellectual Disability/Autism false If Yes, Was Person Tested For Fragile X? false Other Inherited Genetic Or Chromosomal Disorder false Maternal Metabolic Disorder (eg, Type 1 Diabetes , PKU) false Patient Or Baby's Father Had A Child With Defects Not Listed Above false Recurrent Loss, Or A Stillbirth false Medications (including Suppl ements, Vitamins, Herbs, OTC Drugs), Illicit/Recreational Drugs, Alcohol true +MJ/cocain e on UDS If Yes, Agent(s) And Strength/Dosage false Any Other Genetic History false Live With Someone With TB Or Exposed To TB false Patient Or Partner Has History Of Genital Herpes false Rash Or Viral Illness Since Last Menstrual Perio d false History Of STD, Gonorrhea, Chlamydia, HPV, Syphi lis false Other Infection History false History of HIV false History of Hepatitis false Prior GBS-infected child false Hemoglobinopathy Or Carrier false Other Structural Defect false Recent Travel History Outside of Country false Delivery Information Delivery Date Delivery Type Labor Anesthesia Weeks Gestation Incision Type Labor Labor Length Hrs Delivered By Post Complications Tubal Sterilization Discharge Date Comments Discharge Information Feeding Method Contraceptive Method Maternal HG B and HCT Levels
[2025-02-13 13:15] VITALS: BP 103/68; PULSE 53; RESP 16; O2SAT 99
[2025-02-13] MEDS: ACETAMINOPHEN 500 MG TABLET 1000 MG PO (14:23)
[2025-02-13] MEDS: BELLADONNA ALK/PHENOB ELIX 10 ML, MAG HYDROX/ALUMINUM HYD/SIMETH 30 ML, LIDOCAINE 2% VI... PO (14:23)
[2025-02-13] MEDS: CEPHALEXIN 500 MG CAPSULE PO (14:27)
[2025-02-13 15:06] VITALS: BP 103/73; PULSE 55; RESP 14; TEMP 36.8; O2SAT 99
== END 2025-02-13 15:08 | disposition home or self-care (01) ==
PROVIDERS: Emergency Medicine; Emergency Provider Physician Assistant
DX: K80.20 Calculus of gallbladder without cholecystitis without obstruction (principal); N30.00 Acute cystitis without hematuria; I82.890 Acute embolism and thrombosis of other specified veins; R73.03 Prediabetes
CPT/HCPCS: 36415; 74177; 76856; 80053; 81001; 81025; 83690; 85025; 87086; 87186; 96361; 96374; 99284; A9270; J7030; Q9967